=== PATIENT | female | born 1990 | race Caucasian/White ===

== ENCOUNTER 2016-05-18 20:32 | Emergency (ER) | payer OTHER, SELFPAY ==
[2016-05-18] MEDS ORDERED: Sodium Chloride 0.9% 1000 ML 1,000 ML IV STA ×2 (20:59→22:09)
[2016-05-18] MEDS ORDERED: Zofran 4 MG/2 ML VIAL IV ONE (20:59)
[2016-05-18] MEDS ORDERED: Sodium Chloride 0.9% 1000 ML 1,000 ML ONE ×2 (21:04→22:16)
[2016-05-18] MEDS ORDERED: Zofran 4 MG/2 ML VIAL ONE ×2 (21:04→22:15)
--- NOTE | 2016-05-18 21:04 | ERPHSYRPT ---
- History of Present Illness Time Seen by Provider: 05/18/16 20:50 Historian: patient Exam Limitations: clinical condition Patient Subjective Stated Complaint: "i started feeling sick at 4 this morning. i have vomited about 4-5 times and i have had a fever. it was over 101." Triage Nursing Assessment: aox3, breathing easy unlabored, skin pink hot dry, steady gait, Physician History: PATIENT COMPLAINS OF FEVER ASSOCIATED WITH FREQENT EPISODES OF EMESIS X 5. DENIES URINARY SYMPTOMS, COUGH, FLANK PAIN BUT COMPLAINS OF WATER DIARRHEA. Timing/Duration: today Activities at Onset: none Quality: aching Abdominal Pain Onset Location: other (DENIES ABDOIMINAL PAIN) Severity of Pain-Max: none Severity of Pain-Current: none Associated Symptoms: fever/chills, nausea (VOMITING AND DIARRHEA) Allergies/Adverse Reactions: No Known Drug Allergies Allergy (Verified 11/21/15 00:32) Hx Tetanus, Diphtheria Vaccination/Date Given: Yes (2015) Hx Influenza Vaccination/Date Given: No Hx Pneumococcal Vaccination/Date Given: No - Review of Systems Constitutional: Fever, Chills Eyes: No Symptoms Ears, Nose, & Throat: No Symptoms Respiratory: No Symptoms, No Cough, No Dyspnea Cardiac: No Chest Pain, No Edema, No Syncope Abdominal/Gastrointestinal: Nausea, Vomiting, Diarrhea, No Abdominal Pain Genitourinary Symptoms: No Symptoms, No Dysuria Musculoskeletal: No Symptoms, No Back Pain, No Neck Pain Skin: No Symptoms, No Rash Neurological: No Dizziness, No Focal Weakness, No Sensory Changes Psychological: No Symptoms Endocrine: No Symptoms All Other Systems: Reviewed and Negative - Past Medical History Pertinent Past Medical History: No Neurological History: No Pertinent History ENT History: No Pertinent History Cardiac History: No Pertinent History Respiratory History: Asthma Endocrine Medical History: No Pertinent History Musculoskeletal History: No Pertinent History GI Medical History: No Pertinent History History: No Pertinent History Psycho-Social History: Depression Female Reproductive Disorders: No Pertinent History - Past Surgical History Past Surgical History: No Neuro Surgical History: No Pertinent History Cardiac: No Pertinent History Respiratory: No Pertinent History Gastrointestinal: No Pertinent History Genitourinary: No Pertinent History Musculoskeletal: No Pertinent History Female Surgical History: Section Other Surgical History: BACK SURGERY - Social History Smoking Status: Current every day smoker How long have you smoked: 5 Exposure to second hand smoke: No Drug Use: none Patient Lives Alone: No - Female History Hx Now: No - Nursing Vital Signs Nursing Vital Signs: Initial Vital Signs Temperature 100.0 F Temperature Source Oral Pulse Rate 116 Respiratory Rate 16 Blood Pressure [Right Arm] 130/73 Pain Intensity 2 - Physical Exam General Appearance: no apparent distress, alert Eye Exam: PERRL/EOMI, eyes nml inspection Ears, Nose, Throat Exam: normal ENT inspection, pharynx normal, moist mucous membranes Neck Exam: normal inspection, non-tender, supple, full range of motion Respiratory Exam: normal breath sounds, lungs clear, No respiratory distress Cardiovascular Exam: regular rate/rhythm, normal heart sounds Gastrointestinal/Abdomen Exam: soft, normal bowel sounds (NONTENDER), No tenderness, No mass Back Exam: normal inspection, normal range of motion, No CVA tenderness, No vertebral tenderness Extremity Exam: normal inspection, normal range of motion, pelvis stable Neurologic Exam: alert, oriented x 3, cooperative, normal mood/affect, nml cerebellar function, sensation nml, No motor deficits Skin Exam: normal color, warm, dry SpO2: 96 Oxygen Delivery: Room Air Ordered Tests: Active Orders 24 hr Category Date Time Status IV Insertion STAT Care 05/18/16 20:59 Active AMYLASE Stat Lab 05/18/16 20:55 Completed BLOOD CULTURE Stat Lab 05/18/16 21:05 Received BMP Stat Lab 05/18/16 20:55 Completed CBC W DIFF Stat Lab 05/18/16 20:55 Completed HCG,QUALITATIVE URINE Stat Lab 05/18/16 21:05 Completed LIPASE Stat Lab 05/18/16 20:55 Completed UA W/ MICROSCOPIC Stat Lab 05/18/16 21:05 Completed Medication Summary Discontinued Medications Generic Name Dose Route Start Last Admin Trade Name Christina PRN Reason Stop Dose Admin Fentanyl Citrate 100 mcg 05/18/16 22:15 05/18/16 22:23 Sublimaze 100 Mcg/2 Ml IV 05/18/16 22:16 100 mcg STAT ONE Administration Fentanyl Citrate Confirm 05/18/16 22:15 Sublimaze 100 Mcg/2 Ml Administered 05/18/16 22:16 Dose 100 mcg .ROUTE .STK-MED ONE Sodium Chloride 1,000 mls @ 999 mls/hr 05/18/16 20:59 05/18/16 21:06 Sodium Chloride 0.9% 1000 Ml IV 05/18/16 21:59 999 mls/hr .Q1H1M STA Administration Sodium Chloride Confirm 05/18/16 21:04 Sodium Chloride 0.9% 1000 Ml Administered 05/18/16 21:05 Dose 1,000 mls @ ud .ROUTE .STK-MED ONE Sodium Chloride 1,000 mls @ 999 mls/hr 05/18/16 22:09 05/18/16 22:23 Sodium Chloride 0.9% 1000 Ml IV 05/18/16 23:09 999 mls/hr .Q1H1M STA Administration Sodium Chloride Confirm 05/18/16 22:16 Sodium Chloride 0.9% 1000 Ml Administered 05/18/16 22:17 Dose 1,000 mls @ ud .ROUTE .STK-MED ONE Ondansetron HCl 4 mg 05/18/16 20:59 05/18/16 21:06 Zofran 4 Mg/2 Ml Vial IV 05/18/16 21:00 4 mg STAT ONE Administration Ondansetron HCl Confirm 05/18/16 21:04 Zofran 4 Mg/2 Ml Vial Administered 05/18/16 21:05 Dose 4 mg .ROUTE .STK-MED ONE Ondansetron HCl Confirm 05/18/16 22:15 Zofran 4 Mg/2 Ml Vial Administered 05/18/16 22:16 Dose 4 mg .ROUTE .STK-MED ONE Lab/Rad Data: Laboratory Result Diagrams 05/18/16 20:55 05/18/16 20:55 Laboratory Results 05/18/16 05/18/16 05/18/16 Range/Units 21:05 21:05 20:55 WBC (4.0-10.5) K/mm3 RBC (4.1-5.4) M/mm3 Hgb (12.0-16.0) gm/dl Hct (35-47) % MCV (78-100) fl MCH (26-32) pg MCHC (32-36) g/dl RDW (11.5-14.0) % Plt Count (150-450) K/mm3 MPV (6-9.5) fl Gran % (36.0-66.0) % Lymphocytes % (24.0-44.0) % Monocytes % (0.0-12.0) % Eosinophils % (0.00-5.0) % Basophils % (0.0-0.4) % Basophils # (0-0.4) Sodium 136 (136-145) mEq/L Potassium 3.2 L (3.5-5.1) mEq/L Chloride 104 (98-107) mEq/L Carbon Dioxide 19.3 L (21-32) mEq/L Anion Gap 15.5 H (5-15) MEQ/L BUN 8 L (9-20) mg/dL Creatinine 0.82 (0.55-1.30) mg/dl Estimated GFR > 60 ML/MIN Glucose 89 (70-110) MG/DL Calcium 8.7 (8.5-10.1) mg/dL Amylase 32 (25-115) U/L Lipase 120 (73-393) U/L Ur Collection Type CLEAN CATCH Urine Color YELLOW (YELLOW) Urine Appearance CLEAR (CLEAR) Urine pH 5.0 (5-6) Ur Specific [place] 1.025 (1.005-1.025) Urine Protein NEGATIVE (Negative) Urine Glucose (UA) NEGATIVE (NEGATIVE) mg/dL Urine Ketones SMALL-15 (NEGATIVE) Urine Nitrite NEGATIVE (NEGATIVE) Urine Bilirubin SMALL (NEGATIVE) Urine Urobilinogen 0.2 (0-1) mg/dL Urine WBC (Auto) TRACE (NEGATIVE) Urine RBC (Auto) NEGATIVE (0-5) Joseph/ul Urine Microscopic WBC 2-5 (0-5) /HPF Ur Epithelial Cells FEW (FEW) /HPF Urine Bacteria FEW (NEGATIVE) /HPF Urine Mucus MODERATE (NEGATIVE) /HPF Urine HCG, Qual NEGATIVE (Negative) Specimen Received 05/18/16210405/18/16 Range/Units 20:55 WBC 7.1 (4.0-10.5) K/mm3 RBC 5.50 H (4.1-5.4) M/mm3 Hgb 16.7 H (12.0-16.0) gm/dl Hct 48.7 H (35-47) % MCV 88.5 (78-100) fl MCH 30.3 (26-32) pg MCHC 34.3 (32-36) g/dl RDW 13.0 (11.5-14.0) % Plt Count 248 (150-450) K/mm3 MPV 9.5 (6-9.5) fl Gran % 79.3 H (36.0-66.0) % Lymphocytes % 12.2 L (24.0-44.0) % Monocytes % 7.1 (0.0-12.0) % Eosinophils % 1.1 (0.00-5.0) % Basophils % 0.3 (0.0-0.4) % Basophils # 0.02 (0-0.4) Sodium (136-145) mEq/L Potassium (3.5-5.1) mEq/L Chloride (98-107) mEq/L Carbon Dioxide (21-32) mEq/L Anion Gap (5-15) MEQ/L BUN (9-20) mg/dL Creatinine (0.55-1.30) mg/dl Estimated GFR ML/MIN Glucose (70-110) MG/DL Calcium (8.5-10.1) mg/dL Amylase (25-115) U/L Lipase (73-393) U/L Ur Collection Type Urine Color (YELLOW) Urine Appearance (CLEAR) Urine pH (5-6) Ur Specific [place] (1.005-1.025) Urine Protein (Negative) Urine Glucose (UA) (NEGATIVE) mg/dL Urine Ketones (NEGATIVE) Urine Nitrite (NEGATIVE) Urine Bilirubin (NEGATIVE) Urine Urobilinogen (0-1) mg/dL Urine WBC (Auto) (NEGATIVE) Urine RBC (Auto) (0-5) Joseph/ul Urine Microscopic WBC (0-5) /HPF Ur Epithelial Cells (FEW) /HPF Urine Bacteria (NEGATIVE) /HPF Urine Mucus (NEGATIVE) /HPF Urine HCG, Qual (Negative) Specimen Received - Progress Progress Note: 05/18/16 23:18 PATIENT HYDRATED 2 LITERS NORMAL SALINE OVER 2 HOURS, ZOFRAN 4MG, FENTANYL 0.1MG IV Counseled pt/family regarding: lab results, diagnosis, need for follow-up - Departure Time of Disposition: 23:37 Departure Disposition: Home Clinical Impression: ACUTE GASTROENTERITIS Condition: Stable Critical Care Time: No Referrals: BAM NEGRETE MD [Primary Care Provider] - Additional Instructions: DRINK PLENTY OF FLUIDS. ZOFRAN 4MG EVERY 4 HOURS FOR NAUSEA NEEDED. BEGIN CLEAR LIQUID DIET FOR 24 HOURS THEN ADVANCE DIET TOLERATED. TYLENOL OR MOTRIN NEEDED FOR FEVER OR PAIN. CONSULT YOUR FAMILY PHYSICIAN FOR FOLLOWUP IN 6-7 DAYS. RETURN TO EMERGENCY FOR VOMITING OR PERSISTENT DIARRHEA. Prescriptions: Ondansetron [Zofran Odt] 4 mg PO Q4H PRN PRN #6 tab.rapdis PRN Reason: Nausea
[2016-05-18 21:13] LABS: BASOPHIL % 0.3 % (0.0-0.4); Eosinophil % 1.1 % (0.00-5.0); Granulocytes % 79.3 % (36.0-66.0); Lymphocytes % 12.2 % (24.0-44.0); Mean Cell Volume 88.5 fl (78-100); Mean Platelet Volume 9.5 fl (6-9.5); Monocytes % 7.1 % (0.0-12.0); Platelet Count 248 K/mm3 (150-450); White Blood Count 7.1 K/mm3 (4.0-10.5)
[2016-05-18 21:20] LABS: Mean Corpuscular Hemoglobin 30.3 pg (26-32)
[2016-05-18 21:28] LABS: ANION GAP 15.5 MEQ/L (5-15); BLOOD UREA NITROGEN 8 mg/dL (9-20); CHLORIDE 104 mEq/L (98-107); Carbon Dioxide 19.3 mEq/L (21-32); Glucose 89 MG/DL (70-110); LIPASE 120 U/L (73-393); Potassium 3.2 mEq/L (3.5-5.1); SODIUM 136 mEq/L (136-145)
[2016-05-18 21:48] LABS: COMPLETE URINE MICROSCOPIC? YES; Collection Type CLEAN CATCH
[2016-05-18 21:49] LABS: Bacteria FEW /HPF (NEGATIVE); Epithelial Cells FEW /HPF (FEW); Mucus MODERATE /HPF (NEGATIVE)
[2016-05-18 22:12] VITALS: O2SAT 96
[2016-05-18] MEDS ORDERED: SUBLIMAZE 100 MCG/2 ML IV ONE (22:15)
[2016-05-18] MEDS ORDERED: SUBLIMAZE 100 MCG/2 ML ONE (22:15)
[2016-05-18 22:27] VITALS: BP 130/73; PULSE 116
== END 2016-05-18 23:46 | disposition home or self-care (01) ==
LOC: ED 20:32
DX: K52.9 Noninfective gastroenteritis and colitis, unspecified (principal); R50.9 Fever, unspecified; R11.2 Nausea with vomiting, unspecified
CPT/HCPCS: 36000; 36415; 80048; 81000; 82150; 83690; 84703; 85025; 87040; 96360; 96361; 96374; 96375; 99283; J2405; J3010

== ENCOUNTER 2016-07-21 07:58 | Observation (INO) | payer OTHER ==
[2016-07-21] MEDS ORDERED: Zemuron 100 MG/10 ML IJ ONE (08:00)
[2016-07-21] MEDS ORDERED: TORAdol 30 mg Injection IJ ONE (08:00)
[2016-07-21] MEDS ORDERED: BRIDION 200MG/2ML IV ONE (08:00)
[2016-07-21] MEDS ORDERED: DILAUDID 2 MG INJECTION IV ONE (08:00)
[2016-07-21] MEDS ORDERED: SUBLIMAZE 100 MCG/2 ML IV ONE (08:00)
[2016-07-21] MEDS ORDERED: Decadron 4 MG INJ IV ONE (08:00)
[2016-07-21] MEDS ORDERED: DIPRIVAN 200 MG/20 ML IV ONE (08:00)
[2016-07-21] MEDS ORDERED: Quelicin Fliptop 200 MG/10 ML IJ ONE (08:00)
[2016-07-21] MEDS ORDERED: Zofran 4 MG/2 ML VIAL IV ONE ×2 (08:00→08:32)
[2016-07-21] MEDS ORDERED: BENADRYL 50 MG/ML IV ONE (08:32)
[2016-07-21] MEDS ORDERED: Sodium Chloride 0.9% 1000 ML 1,000 ML IV STA (08:32)
[2016-07-21] MEDS ORDERED: Hydromorphone 1 mg/ml Ampule IV ONE (08:32)
--- NOTE | 2016-07-21 08:36 | ERPHSYRPT ---
- History of Present Illness Time Seen by Provider: 07/21/16 08:13 Historian: patient Patient Subjective Stated Complaint: PT REPORTS WAKING UP THIS AM TO RIGHT SIDED ABD-FLANK PAIN-REPORTS NAUSEA BUT DENIES VOMITING-STATES THAT PAIN RADIATES TO BACK-DENIES DIFFICULTY WITH BOWELS-REPORTS INCREASED FREQUENCY IN URINATION-DENIES FEVER Triage Nursing Assessment: PT PALE WARM ET [id number] QUESTIONS CORRECTLY-NO REBOUND TENDERNESS NOTED-ABD SOFT Physician History: CC: abd pain hx: 26 y/o patient missed recent depo provera shot. She has hx of UTI in the past. Prior C/S. She awoke at 4AM with nausea that is profound, RLQ abd pain. Forced herself to vomit. No diarrhea. Pain moderate. She is worried about appendicitis. No hx of renal stone disease. Allergies/Adverse Reactions: latex Allergy (Intermediate, Verified 07/21/16 08:25) Home Medications: Escitalopram Oxalate 10 mg [Lexapro 10 MG] 10 mg PO DAILY 07/21/16 [History] Hx Tetanus, Diphtheria Vaccination/Date Given: Yes Hx Influenza Vaccination/Date Given: No Hx Pneumococcal Vaccination/Date Given: No Immunizations Up to Date: Yes - Review of Systems Constitutional: No Fever, No Chills Eyes: No Symptoms Ears, Nose, & Throat: No Symptoms Respiratory: No Cough Cardiac: No Chest Pain Abdominal/Gastrointestinal: Abdominal Pain, Nausea, No Diarrhea Genitourinary Symptoms: Frequency, Urgency, No Dysuria, No Incontinence Musculoskeletal: No Back Pain Skin: No Rash All Other Systems: Reviewed and Negative - Past Medical History Pertinent Past Medical History: Yes Neurological History: No Pertinent History ENT History: No Pertinent History Cardiac History: No Pertinent History Respiratory History: Asthma Endocrine Medical History: No Pertinent History Musculoskeletal History: No Pertinent History GI Medical History: No Pertinent History History: No Pertinent History Psycho-Social History: Depression Female Reproductive Disorders: No Pertinent History - Past Surgical History Past Surgical History: Yes Neuro Surgical History: No Pertinent History Cardiac: No Pertinent History Respiratory: No Pertinent History Gastrointestinal: No Pertinent History Genitourinary: No Pertinent History Musculoskeletal: No Pertinent History Female Surgical History: Section Other Surgical History: BACK SURGERY - Social History Smoking Status: Never smoker How long have you smoked: 5 Exposure to second hand smoke: No Drug Use: none Patient Lives Alone: No - Female History Hx Last Menstrual Period: LAST YR Hx Now: No - Nursing Vital Signs Nursing Vital Signs: Initial Vital Signs Temperature 97.9 F Temperature Source Oral Pulse Rate 69 Respiratory Rate 22 Blood Pressure [Right Arm] 120/81 Pain Intensity 7 - Physical Exam General Appearance: alert, other (flat affect) Eye Exam: PERRL/EOMI Ears, Nose, Throat Exam: normal ENT inspection, moist mucous membranes Neck Exam: normal inspection, non-tender, supple Respiratory Exam: normal breath sounds, lungs clear Cardiovascular Exam: regular rate/rhythm Gastrointestinal/Abdomen Exam: soft, tenderness (RLQ with guarding and rovsings sign), No mass Extremity Exam: normal inspection, normal range of motion Neurologic Exam: alert, oriented x 3, cooperative, sensation nml, No motor deficits Skin Exam: warm, dry, No rash SpO2 Interpretation: normal SpO2: 100 Oxygen Delivery: Room Air - Course Nursing assessment & vital signs reviewed: Yes - CT Exams abd/pelvis CT Interpretation: Tele-radiologist Report (borderline prominent appendix with very minimal hazy margins, possible mild/early appendicitis. Tiny culdesac fluid. Splenomegaly.) Ordered Tests: Active Orders 24 hr Category Date Time Status IV Insertion STAT Care 07/21/16 08:32 Active NPO (ED) STAT Care 07/21/16 08:32 Active ABDOMEN AND PELVIS W CONTRAST [CT] Stat Exams 07/21/16 08:32 Completed CBC W DIFF Stat Lab 07/21/16 08:15 Completed CMP Stat Lab 07/21/16 08:15 Received CULTURE,URINE Stat Lab 07/21/16 09:10 Received HCG QUALITATIVE,SERUM Stat Lab 07/21/16 08:15 Completed UA W/ MICROSCOPIC Stat Lab 07/21/16 08:15 Completed Medication Summary Discontinued Medications Generic Name Dose Route Start Last Admin Trade Name Freq PRN Reason Stop Dose Admin Diphenhydramine HCl 25 mg 07/21/16 08:32 07/21/16 08:42 Benadryl 50 Mg/Ml IV 07/21/16 08:33 25 mg STAT ONE Administration Diphenhydramine HCl Confirm 07/21/16 08:38 Benadryl 50 Mg/Ml Administered 07/21/16 08:39 Dose 50 mg .ROUTE .STK-MED ONE Hydromorphone HCl 1 mg 07/21/16 08:32 07/21/16 08:42 Hydromorphone 1 Mg/Ml Ampule IV 07/21/16 08:33 1 mg STAT ONE Administration Hydromorphone HCl Confirm 07/21/16 08:38 Hydromorphone 1 Mg/Ml Ampule Administered 07/21/16 08:39 Dose 1 mg .ROUTE .STK-MED ONE Sodium Chloride 1,000 mls @ 999 mls/hr 07/21/16 08:32 07/21/16 08:39 Sodium Chloride 0.9% 1000 Ml IV 07/21/16 09:32 999 mls/hr .Q1H1M STA Administration Sodium Chloride Confirm 07/21/16 08:38 Sodium Chloride 0.9% 1000 Ml Administered 07/21/16 08:39 Dose 1,000 mls @ ud .ROUTE .STK-MED ONE Ondansetron HCl 4 mg 07/21/16 08:32 07/21/16 08:41 Zofran 4 Mg/2 Ml Vial IV 07/21/16 08:33 4 mg STAT ONE Administration Ondansetron HCl Confirm 07/21/16 08:38 Zofran 4 Mg/2 Ml Vial Administered 07/21/16 08:39 Dose 4 mg .ROUTE .STK-MED ONE Lab/Rad Data: Laboratory Result Diagrams 07/21/16 08:15 Laboratory Results 07/21/16 07/21/16 07/21/16 Range/Units 08:15 08:15 08:15 WBC 13.1 H (4.0-10.5) K/mm3 RBC 5.23 (4.1-5.4) M/mm3 Hgb 15.9 (12.0-16.0) gm/dl Hct 46.8 (35-47) % MCV 89.5 (78-100) fl MCH 30.4 (26-32) pg MCHC 34.0 (32-36) g/dl RDW 13.4 (11.5-14.0) % Plt Count 293 (150-450) K/mm3 MPV 9.7 H (6-9.5) fl Gran % 81.2 H (36.0-66.0) % Lymphocytes % 12.4 L (24.0-44.0) % Monocytes % 4.4 (0.0-12.0) % Eosinophils % 1.8 (0.00-5.0) % Basophils % 0.2 (0.0-0.4) % Basophils # 0.03 (0-0.4) Serum , Qual NEGATIVE (Negative) Ur Collection Type CCMS Urine Color YELLOW (YELLOW) Urine Appearance CLOUDY (CLEAR) Urine pH 5.5 (5-6) Ur Specific [place] 1.025 (1.005-1.025) Urine Protein NEGATIVE (Negative) Urine Glucose (UA) NEGATIVE (NEGATIVE) mg/dL Urine Ketones NEGATIVE (NEGATIVE) Urine Nitrite NEGATIVE (NEGATIVE) Urine Bilirubin NEGATIVE (NEGATIVE) Urine Urobilinogen 0.2 (0-1) mg/dL Urine WBC (Auto) SMALL (NEGATIVE) Urine RBC (Auto) NEGATIVE (0-5) Joseph/ul Urine Microscopic RBC 2-5 (0-2) /HPF Urine Microscopic WBC 2-5 (0-5) /HPF Ur Epithelial Cells MANY (FEW) /HPF Urine Bacteria MODERATE (NEGATIVE) /HPF Specimen Received 0815 07/21/16 - Progress Progress Note: 07/21/16 10:36 Pt has continued tenderness RLQ. CT suspicious for appy. Called Dr Palacio for [facility]. Will place in obs and consult surgeons. Discussed with : Hakeem Will see patient in: hospital (observation) Counseled pt/family regarding: lab results, diagnosis, need for follow-up, rad results - Departure Time of Disposition: 10:36 Departure Disposition: Observation Clinical Impression: RLQ abdominal pain Appendicitis Qualifiers: Appendicitis type: acute appendicitis Acute appendicitis type: with localized peritonitis Qualified Code(s): K35.3 - Acute appendicitis with localized peritonitis Condition: Stable Critical Care Time: No Referrals: BAM NEGRETE MD [Primary Care Provider] -
[2016-07-21] MEDS ORDERED: Hydromorphone 1 mg/ml Ampule ONE (08:38)
[2016-07-21] MEDS ORDERED: BENADRYL 50 MG/ML ONE (08:38)
[2016-07-21] MEDS ORDERED: Zofran 4 MG/2 ML VIAL ONE (08:38)
[2016-07-21] MEDS ORDERED: Sodium Chloride 0.9% 1000 ML 1,000 ML ONE (08:38)
[2016-07-21 08:49] LABS: BASOPHIL % 0.2 % (0.0-0.4); Eosinophil % 1.8 % (0.00-5.0); Granulocytes % 81.2 % (36.0-66.0); Lymphocytes % 12.4 % (24.0-44.0); Mean Cell Volume 89.5 fl (78-100); Mean Corpuscular Hemoglobin 30.4 pg (26-32); Mean Platelet Volume 9.7 fl (6-9.5); Monocytes % 4.4 % (0.0-12.0); Platelet Count 293 K/mm3 (150-450); Red Blood Count 5.23 M/mm3 (4.1-5.4); Red Cell Distribution Width 13.4 % (11.5-14.0); White Blood Count 13.1 K/mm3 (4.0-10.5)
[2016-07-21 08:54] LABS: COMPLETE URINE MICROSCOPIC? YES; Collection Type CCMS; Ph 5.5 (5-6)
[2016-07-21 09:48] LABS: Epithelial Cells MANY /HPF (FEW)
[2016-07-21 09:51] LABS: Bacteria MODERATE /HPF (NEGATIVE)
--- NOTE | 2016-07-21 10:14 | XRAY ---
Indication: Right lower pain and nausea. Multiple contiguous axial images obtained through the abdomen and pelvis using 80 cc Isovue 370 contrast only. Comparison: None Lung bases demonstrates minimal bibasilar dependent atelectasis. Heart is not enlarged. Noncontrasted stomach and bowel loops appear nonobstructed. Appendix measures 8mm in diameter with very minimal hazy margins. Mild/early appendicitis not excluded in the right clinical setting. There is tiny cul-de-sac fluid that may or may not be related to the appendix or could be from ruptured/leaking ovary cyst. No free air. Again splenomegaly today measuring 12.7 cm. Remaining liver, gallbladder, pancreas, spleen, adrenal glands, kidneys, ureters, urinary bladder, uterus, and aorta appear unremarkable. Osseous structures intact. Impression: 1. Borderline prominent appendix with very minimal hazy margins. Rule out mild/early appendicitis clinically. Tiny cul-de-sac fluid may or may not be related or could be from a ruptured/leaking ovary cyst. 2. Again splenomegaly. CTDI 14.54
[2016-07-21] MEDS ORDERED: Unasyn 3GM / NaCl 100ML 100 ML IV ONE (10:37)
[2016-07-21] MEDS ORDERED: Unasyn 3GM / NaCl 100ML 100 ML ONE (10:52)
[2016-07-21] MEDS ORDERED: DILAUDID 2 MG INJECTION IV PRN (11:21)
[2016-07-21] MEDS ORDERED: Zofran 4 MG/2 ML VIAL IV PRN (11:21)
[2016-07-21] MEDS ORDERED: Unasyn 1.5GM / NaCl 100ML 100 ML IV SCH (12:00)
[2016-07-21] MEDS ORDERED: Pepcid 20 MG VIAL IV SCH (14:00)
[2016-07-21] MEDS ORDERED: Lactated Ringers 1,000 ML IV SCH (14:00)
[2016-07-21] MEDS ORDERED: MEFOXIN 2 GM PREMIX** 50 ML IV SCH (14:00)
[2016-07-21] MEDS ORDERED: Lactated Ringers 1,000 ML IV ONE (14:16)
[2016-07-21] MEDS ORDERED: Sensorcaine 0.25% 10 ML ONE (14:16)
--- NOTE | 2016-07-21 15:45 | CONS ---
CONSULT DATE: 07/21/2016 HISTORY: The patient is a 26 year-old female who started having some right lower quadrant earlier today. She came in and she had leukocytosis. She denied any fever, denied any change in bowel movements. She denied any known family history of Crohn's disease. CT scan had concern of enlarged appendix, whether or not she had adnexal cyst or not. The radiologist felt that she had appendicitis and asked for surgical consult. PAST MEDICAL HISTORY: She denies any chronic illnesses. She does report a little bit of asthma or chronic obstructive pulmonary disease otherwise she denies any other chronic illnesses. MEDICATIONS: None on a regular basis. She had been on Lexapro. ALLERGIES: [place]. LATEX. SOCIAL HISTORY: Smoker half pack per day, denies alcohol abuse. FAMILY HISTORY: Negative for Crohn's disease, negative in regards to this problem. PAST SURGICAL HISTORY: Back surgery. section. She denied any abdominal surgeries in the past. REVIEW OF SYSTEMS: Ten systems reviewed negative or noncontributory as noted above and per preadmission questionnaire. LAB DATA AND TESTS: White blood cell count reported to be 13,100. CT scan showed prominent appendix with hazy around the edges, possibly early acute appendicitis. Differential ruptured, leaking adnexal cyst. PHYSICAL EXAMINATION: She is afebrile. Blood pressure 132/94, pulse 72 earlier. GENERAL: Slightly uncomfortable otherwise in no acute distress.HEENT: Sclera nonicteric. NECK: No JVD. CHEST: Equal excursion, nonlabored breathing. CVS: Regular rate and rhythm. ABDOMEN: Soft, some tenderness in the right lower quadrant a little bit of guarding, no rebound currently. EXTREMITIES: No significant edema. NEURO: Alert, moving extremities grossly symmetrically. IMPRESSION: She had lower quadrant pain, leukocytosis, history and CT findings suspicious for possible early acute appendicitis versus ruptured adnexal cyst or Mittelschmerz. Either way given the prominent appendix, leukocytosis, I feel she definitely warrants diagnostic laparoscopy possible laparoscopic appendectomy, possible open. Risks and benefits explained in detail but not limited to bleeding or infection, risk of trocar injury or hernia, small risk bowel, bladder or blood vessel injury, small risk of subsequent intra-abdominal abscess or fistula formation possibly requiring percutaneous or open drainage even at a later date, general risk of anesthesia, deep venous thrombosis, pulmonary embolism, pneumonia, possibly need to convert to an open procedure, risk of obstruction or ileus postoperatively, ongoing infection. She also understands possibility of finding a normal appendix likely remove incidentally and look for other etiology that might need taken care of surgically. If she does have a ruptured cyst likely would rinse the abdomen out and conservative management given her young age. She understands and agrees to the planned procedure, will proceed with diagnostic laparoscopy, laparoscopic appendectomy, possible open when OR time available. Thank you for the consult.
[2016-07-21] MEDS ORDERED: Phenergan 25 MG INJ ONE (15:48)
[2016-07-21] MEDS ORDERED: DILAUDID 2 MG INJECTION ONE (16:01)
[2016-07-21] MEDS ORDERED: NORCO 5/325 MG PO PRN (16:44)
[2016-07-21] MEDS ORDERED: TYLENOL 325 MG PO PRN (16:44)
[2016-07-21] MEDS: Zosyn 3.375GM/100 Ml D5W 100 ML IV SCH (17:11)
[2016-07-21] MEDS: D5W/0.45NS W/ 20mEq KCl 1000 ML 1,000 ML IV SCH (17:13)
[2016-07-21] MEDS: MORPHINE SULFATE 4 MG INJ IV PRN (20:04)
[2016-07-21] MEDS ORDERED: Lexapro 10 MG ONE (20:58)
[2016-07-21] MEDS ORDERED: Lexapro 10 MG PO SCH (22:00)
[2016-07-22] MEDS: Zosyn 3.375GM/100 Ml D5W 100 ML IV SCH ×3 (00:20→11:30)
[2016-07-22] MEDS: MORPHINE SULFATE 4 MG INJ IV PRN (00:40)
[2016-07-22] MEDS: D5W/0.45NS W/ 20mEq KCl 1000 ML 1,000 ML IV SCH (05:37)
[2016-07-22 05:51] LABS: Mean Cell Volume 91.1 fl (78-100); Mean Corpuscular Hemoglobin 30.6 pg (26-32); Mean Platelet Volume 9.9 fl (6-9.5); Platelet Count 241 K/mm3 (150-450); Red Blood Count 4.28 M/mm3 (4.1-5.4); Red Cell Distribution Width 13.2 % (11.5-14.0); White Blood Count 10.9 K/mm3 (4.0-10.5)
--- NOTE | 2016-07-22 07:41 | OP ---
SURGERY DATE/TIME: 07/21/2016 1458 PREOPERATIVE DIAGNOSIS: Acute right lower quadrant pain. CT suspicious for acute appendicitis. POSTOPERATIVE DIAGNOSIS: Acute right lower quadrant pain. CT suspicious for acute appendicitis including bilateral adnexal cyst. PROCEDURE: Diagnostic laparoscopy laparoscopic appendectomy. SURGEON: Dr. Bird Sweeney. BOILER OR ENGINE OPERATOR: Elias Lobo, Medical Student III. ANESTHESIA: General. ESTIMATED BLOOD LOSS: Minimal. INDICATIONS: As noted above. Risks and benefits explained in detail but not limited to and consent obtained. DESCRIPTION OF PROCEDURE AND FINDINGS: The patient was taken to the operating room. General anesthesia was induced. Abdomen prepped and draped in usual sterile fashion. After official time out and no disagreement with planned procedure, a transverse incision made at supraumbilical area. Fascia grasped and pulled upwards. Veress needle inserted and tested with saline. Pneumoperitoneum accomplished insufflating from opening pressure of 0 to 15. A 5 mm bladeless port and camera were inserted without difficulty followed by a lower midline 5 mm bladeless port and camera inserted without difficulty followed by lower midline 5 mm port and right mid abdomen 12 mm port under direct vision of the camera. The patient did have bilateral adnexal cysts. There did not appear to be any active hemorrhage at this time from the cysts. Definitely had abnormally thickened, inflamed appendix. I felt it definitely warranted appendectomy. Otherwise the terminal was run a couple feet proximally at least, two to three feet proximally. No evidence of any Meckel's diverticulum. There is no evidence of any inflammatory bowel disease. Liver was grossly unremarkable. At this point the peritoneal reflection was carefully released laterally with just some pin point hook cautery allowing the cecum and appendix to be mobilized upwards. EndoGIA stapler fired across. Original stapler failed to fire appropriately therefore it was discarded and a new stapler was used this time firing safely across the stump of the appendix at the cecum. The residual mesoappendix taken down with the stapler. This was followed by placement of the appendix in the Pleatman sac pulled free out the port wound. Port replaced. Copious amount of irrigation accomplished in right lateral quadrant irrigating until clear. Staple line is intact mesoappendix, appendiceal stump and the cecum. No signs of any active bleeding or leakage. It was felt there was no benefit in drain placement at this point. 12 mm port defect closed with puncture closure device under direct vision of the camera and #1 Vicryl. Pneumoperitoneum decompressed. The wound is irrigated out. Skin incision closed with 4-0 Vicryl. Steri-Strips and sterile dressing applied. 0.25% Marcaine local injected along the skin incision fascial defects. The patient tolerated the procedure well. There were no immediate complications. Apparently the mother was outside smoking or left, was not immediately available to discuss findings with postoperatively.
--- NOTE | 2016-07-22 08:16 | PCM.SSS ---
History of Present Illness - Chief Complaint Chief Complaint: abdominal pain History of Present Illness: is a 26 year old female who presented to ER with acute onset of lower abdominal pain, CT scan was consistent with appendicitis, she had laparoscopic appendectomy by Dr Sweeney. she is tolerating po intake and ambulating normally postoperatively. no fever, wbc has improved to 10,000 after surgery. - Review of Systems Constitutional: No Fever, No Chills Respiratory: No Cough, No Short Of Breath Cardiac: No Chest Pain, No Edema, No Syncope Abdominal/Gastrointestinal: Abdominal Pain, No Nausea, No Vomiting, No Diarrhea Genitourinary Symptoms: No Dysuria Skin: No Rash All Other Systems: Reviewed and Negative Medications & Allergies Home Medications: Home Medication List Escitalopram Oxalate 10 mg [Lexapro 10 MG] 10 mg PO HS 07/21/16 [History Confirmed 07/21/16] Amoxicillin/Potassium Clav [Augmentin 875-125 Tablet] 875 mg PO BID #10 tablet 07/22/16 [Rx] Hydrocodone Bit/Acetaminophen [[place] 5/325Mg] 1 each PO Q4H PRN PRN #28 tablet 07/22/16 [Rx] Allergies/Adverse Reactions: Allergies Allergy/AdvReac Type Severity Reaction Status Date / Time pineapple Allergy Severe Verified 07/21/16 12:06 latex Allergy Intermediate Verified 07/21/16 08:25 - Past Medical History Past Medical History: Yes Neurological History: No Pertinent History ENT History: No Pertinent History Cardiac History: No Pertinent History Respiratory History: Asthma Endocrine Medical History: No Pertinent History Musculoskelatal History: No Pertinent History GI Medical History: No Pertinent History History: No Pertinent History Pyscho-Social History: Depression Reproductive Disorders: No Pertinent History - Female History Hx Last Menstrual Period: 1 yr ago Are you now?: No - Past Surgical History Past Surgical History: Yes Neuro Surgical History: No Pertinent History Cardiac History: No Pertinent History Respiratory Surgery: No Pertinent History GI Surgical History: No Pertinent History Genitourinary Surgical Hx: No Pertinent History Musculskeletal Surgical Hx: No Pertinent History Female Surgical History: Section Other Surgical History: BACK SURGERY - Social History Smoking Status: Current every day smoker How long have you smoked: 9 yrs Exposure to second hand smoke: Yes Alcohol: None Drug Use: none - Physical Exam Vital Signs: Vital Signs - 24 hr Temp Pulse Resp BP BP Pulse Ox 07/22/16 07:00 98.3 F 61 18 111/65 95 07/22/16 04:00 15 07/22/16 03:00 98.3 F 71 15 102/70 97 07/22/16 00:00 18 07/21/16 23:00 98.4 F 83 18 103/57 95 07/21/16 20:00 18 07/21/16 19:23 98.2 F 71 16 106/54 95 07/21/16 18:15 98.4 F 70 16 101/56 95 07/21/16 18:02 98.0 F 75 20 106/68 92 L 07/21/16 16:30 98.3 F 83 18 124/75 95 07/21/16 16:00 97.9 F 70 18 127/78 94 L 07/21/16 14:02 98.3 F 72 18 132/94 97 07/21/16 11:32 98.3 F 72 18 132/94 97 07/21/16 10:37 100 07/21/16 09:05 69 22 120/81 98 Oxygen-Last 24 hours O2 Percentage 2 Liters = 28% General Appearance: no apparent distress, alert Respiratory Exam: normal breath sounds, lungs clear, No respiratory distress Cardiovascular Exam: regular rate/rhythm, normal heart sounds, normal peripheral pulses Gastrointestinal/Abdomen Exam: soft, normal bowel sounds, other (dressings c/d/i ), No tenderness, No mass Extremity Exam: normal inspection, normal range of motion, pelvis stable Results - Labs Lab/Micro Results: Lab Results-Last 24 Hours 07/22/16 Range/Units 05:15 WBC 10.9 H (4.0-10.5) K/mm3 RBC 4.28 (4.1-5.4) M/mm3 Hgb 13.1 (12.0-16.0) gm/dl Hct 39.0 (35-47) % MCV 91.1 (78-100) fl MCH 30.6 (26-32) pg MCHC 33.6 (32-36) g/dl RDW 13.2 (11.5-14.0) % Plt Count 241 (150-450) K/mm3 MPV 9.9 H (6-9.5) fl Assessment/Plan (1) Appendicitis Current Visit: Yes Status: Acute Qualifiers: Appendicitis type: acute appendicitis Acute appendicitis type: with localized peritonitis Qualified Code(s): K35.3 - Acute appendicitis with localized peritonitis Assessment & Plan: s/p lap appy, has rx on chart for augmentin 875mg bid x 5 days and norco prn for pain. home today if ok with surgery. Code(s): K37 - UNSPECIFIED APPENDICITIS Hospital Summary - Vitals & Intake/Output Vital Signs: Vital Signs Temperature 98.3 F 07/22/16 07:00 Pulse Rate 61 07/22/16 07:00 Respiratory Rate 18 07/22/16 07:00 Blood Pressure 111/65 07/22/16 07:00 O2 Sat by Pulse Oximetry 95 07/22/16 07:00 Oxygen-Last Documented O2 Percentage 2 Liters = 28% Intake & Output: Intake & Output 07/19/16 07/20/16 07/21/16 07/22/16 11:59 11:59 11:59 11:59 Intake Total 540 Balance 540 Weight 73.482 kg 73.482 kg - Lab Result Diagrams: 07/22/16 05:15 Lab Results-Last 24 Hrs: Lab Results-Last 24 Hours 07/22/16 Range/Units 05:15 WBC 10.9 H (4.0-10.5) K/mm3 RBC 4.28 (4.1-5.4) M/mm3 Hgb 13.1 (12.0-16.0) gm/dl Hct 39.0 (35-47) % MCV 91.1 (78-100) fl MCH 30.6 (26-32) pg MCHC 33.6 (32-36) g/dl RDW 13.2 (11.5-14.0) % Plt Count 241 (150-450) K/mm3 MPV 9.9 H (6-9.5) fl - Discharge Disposition: Home, Self-Care Condition: Stable Prescriptions: New Amoxicillin/Potassium Clav [Augmentin 875-125 Tablet] 875 mg PO BID #10 tablet Hydrocodone Bit/Acetaminophen [[place] 5/325Mg] 1 each PO Q4H PRN PRN #28 tablet PRN Reason: Pain Continue Escitalopram Oxalate 10 mg [Lexapro 10 MG] 10 mg PO HS Follow up with: BAM NEGRETE MD [Primary Care Provider] -
[2016-07-22 11:36] VITALS: BP 113/71; PULSE 60; O2SAT 96
== END 2016-07-22 11:40 | disposition home or self-care (01) ==
LOC: ED 07:58 → MED SURG 11:14
PROVIDERS: ADMIT Family Medicine; ATTEND Family Medicine
PROC: 0DTJ4ZZ Resection of Appendix, Percutaneous Endoscopic Approach (ICD-10-PCS; principal; 2016-07-21)
PROC: 0WJH4ZZ Inspection of Retroperitoneum, Percutaneous Endoscopic Approach (ICD-10-PCS; 2016-07-21)
DX: K35.3 Acute appendicitis with localized peritonitis (principal)
CPT/HCPCS: 00840; 36000; 36415; 74177; 80053; 81000; 84703; 85025; 85027; 87086; 88304; 96360; 96365; 96374; 96375; 99140; 99285; C1781; G0378; J0295; J0330; J0694; J1100; J1170; J1200; J1885; J2270; J2405; J2543; J2550; J2704; J3010; A9270-GY

== ENCOUNTER 2016-07-30 18:51 | Emergency (ER) | payer OTHER ==
[2016-07-30] MEDS ORDERED: TYLENOL 325 MG PO STA (20:12)
--- NOTE | 2016-07-30 20:12 | ERPHSYRPT ---
- History of Present Illness Time Seen by Provider: 07/30/16 19:40 Source: patient Exam Limitations: clinical condition Patient Subjective Stated Complaint: pt states she been having fever and headache radiating to rt jaw and ear since yesterday. states she just had her appendix out last week and was worried Triage Nursing Assessment: pt alert and oriented, answers questions approp. pt ambulatory with steady gait ntoed. skin pink warm and dry. respirations nonlabored with lungs cta. abd soft, nontender. bowel sounds present in all 4 quads. Physician History: PATIENT WITH RECENT APPENDECTOMY 9 DAYS AGO NOW COMPLAINS OF SORETHROAT, FEVER WITH HEADACHE OVER PAST 3 DAYS. DENIES BLURRED VISION, COUGH, NECK STIFFNESS, EMESIS OR DIARRHEA. Timing/Duration: gradual onset Severity: moderate ENT Location: throat Prearrival Treatment: no prearrival treatment Modifying Factors: Improves With: activity Associated Symptoms: fever, headache Allergies/Adverse Reactions: pineapple Allergy (Severe, Verified 07/30/16 19:23) latex Allergy (Intermediate, Verified 07/30/16 19:23) Home Medications: Escitalopram Oxalate 10 mg [Lexapro 10 MG] 10 mg PO HS 07/21/16 [History] Hx Tetanus, Diphtheria Vaccination/Date Given: Yes Hx Influenza Vaccination/Date Given: No Hx Pneumococcal Vaccination/Date Given: No Immunizations Up to Date: Yes - Review of Systems Constitutional: Fever Eyes: No Symptoms Ears, Nose, & Throat: Throat Pain Respiratory: No Symptoms Cardiac: No Symptoms Abdominal/Gastrointestinal: No Symptoms Genitourinary Symptoms: No Symptoms Musculoskeletal: No Symptoms Skin: No Symptoms Neurological: No Symptoms, Headache Psychological: No Symptoms - Past Medical History Pertinent Past Medical History: Yes Neurological History: No Pertinent History ENT History: No Pertinent History Cardiac History: No Pertinent History Respiratory History: Asthma Endocrine Medical History: No Pertinent History Musculoskeletal History: No Pertinent History GI Medical History: No Pertinent History History: No Pertinent History Psycho-Social History: Depression Female Reproductive Disorders: No Pertinent History - Past Surgical History Past Surgical History: Yes Neuro Surgical History: No Pertinent History Cardiac: No Pertinent History Respiratory: No Pertinent History Gastrointestinal: No Pertinent History, Appendectomy Genitourinary: No Pertinent History Musculoskeletal: No Pertinent History Female Surgical History: Section Other Surgical History: BACK SURGERY - Social History Smoking Status: Current every day smoker How long have you smoked: 9 yrs Exposure to second hand smoke: Yes Drug Use: none Patient Lives Alone: No - Female History Hx Last Menstrual Period: 1 yr ago- was on depo shot Hx Now: No - Nursing Vital Signs Nursing Vital Signs: Initial Vital Signs Temperature 98.3 F Temperature Source Oral Pulse Rate 114 Respiratory Rate 18 Blood Pressure [Right Arm] 138/96 Pain Intensity 4 - Physical Exam General Appearance: no apparent distress, alert Eye Exam: bilateral eye: PERRL, EOMI Ear Exam: bilateral ear: auricle normal, canal normal, TM normal Nasal Exam: normal inspection Throat Exam: moist mucus membranes, pharynx tenderness (WITH ERYTHRMA), No tonsillar exudate Neck Exam: normal inspection, non-tender, supple Cardiovascular/Respiratory Exam: normal breath sounds, regular rate/rhythm Abdominal Exam: non-tender, soft Neurologic Exam: alert, oriented x 3, sensation nml, No motor deficits Skin Exam: normal color, warm, dry SpO2 Interpretation: normal SpO2: 97 Oxygen Delivery: Room Air Ordered Tests: Active Orders 24 hr Category Date Time Status CULTURE, THROAT Stat Lab 07/30/16 20:16 Received STREP SCREEN-BETA A Stat Lab 07/30/16 20:16 Completed Medication Summary Discontinued Medications Generic Name Dose Route Start Last Admin Trade Name Christina PRN Reason Stop Dose Admin Acetaminophen 650 mg 07/30/16 20:12 Tylenol 325 Mg PO 07/30/16 20:13 STAT STA Azithromycin 500 mg 07/30/16 20:48 Zithromax 250 Mg Tablet PO 07/30/16 20:49 STAT ONE Azithromycin Confirm 07/30/16 20:50 Zithromax 250 Mg Tablet Administered 07/30/16 20:51 Dose 500 mg .ROUTE .[place] ONE Lab/Rad Data: Laboratory Results 07/30/16 Range/Units 20:16 Streptococcus Screen NEGATIVE (Negative) - Progress Progress Note: 07/30/16 20:53 PATIENT GIVEN ZITHROMAX 500MG ORALLY Counseled pt/family regarding: lab results, diagnosis, need for follow-up - Departure Time of Disposition: 21:00 Departure Disposition: Home Clinical Impression: ACUTE PHARYNGITIS Condition: Stable Critical Care Time: No Additional Instructions: ANTIBIOTIC ZITHROMAX 250MG, 2 TABLETS DAY 1 THEN 1 TABLET DAILY FOR 4 DAYS. TYLENOL EVERY 4 HOURS FOR PAIN. CONSULT YOUR FAMILY PHYSICIAN IN 1 WEEK FOR FOLLOWUP. Prescriptions: Azithromycin 250 mg [Zithromax 250 MG TABLET] 250 mg PO ZPACK #6 tablet
[2016-07-30] MEDS ORDERED: Zithromax 250 MG TABLET PO ONE (20:48)
[2016-07-30] MEDS ORDERED: Zithromax 250 MG TABLET ONE (20:50)
[2016-07-30 21:08] VITALS: BP 120/82; PULSE 100; O2SAT 100
== END 2016-07-30 21:07 | disposition home or self-care (01) ==
LOC: ED 18:51
DX: J02.9 Acute pharyngitis, unspecified (principal); R50.9 Fever, unspecified; R51 Headache
CPT/HCPCS: 87070; 87430; 99283; A9270-GY

== ENCOUNTER 2016-12-09 23:07 | Emergency (ER) | payer OTHER ==
--- NOTE | 2016-12-09 23:21 | ERPHSYRPT ---
- History of Present Illness Time Seen by Provider: 12/09/16 23:21 Source: patient Exam Limitations: no limitations Physician History: FOR THE PAST 2 WEEKS PT HAS HAD INCREASED URINARY FREQUENCY; FOR THE PAST 3 DAYS NAUSEA AND DULL RIGHT FLANK PAIN. PT DENIES FEVER, CHILLS, VOMITING, CHEST PAIN. Allergies/Adverse Reactions: pineapple Allergy (Severe, Verified 07/30/16 19:23) latex Allergy (Intermediate, Verified 07/30/16 19:23) Hx Tetanus, Diphtheria Vaccination/Date Given: Yes Hx Influenza Vaccination/Date Given: No Hx Pneumococcal Vaccination/Date Given: No - Review of Systems Constitutional: No Fever, No Chills Cardiac: No Chest Pain Abdominal/Gastrointestinal: Nausea, Other (RIGHT FLANK PAIN), No Vomiting Genitourinary Symptoms: Frequency All Other Systems: Reviewed and Negative - Past Medical History Pertinent Past Medical History: Yes Neurological History: No Pertinent History ENT History: No Pertinent History Cardiac History: No Pertinent History Respiratory History: Asthma Endocrine Medical History: No Pertinent History Musculoskeletal History: No Pertinent History GI Medical History: No Pertinent History History: No Pertinent History Psycho-Social History: Depression Female Reproductive Disorders: No Pertinent History - Past Surgical History Past Surgical History: Yes Neuro Surgical History: No Pertinent History Cardiac: No Pertinent History Respiratory: No Pertinent History Gastrointestinal: No Pertinent History, Appendectomy Genitourinary: No Pertinent History Musculoskeletal: No Pertinent History Female Surgical History: Section Other Surgical History: BACK SURGERY - Social History Smoking Status: Current every day smoker How long have you smoked: 9 yrs Exposure to second hand smoke: Yes Drug Use: none Patient Lives Alone: No - Female History Hx Now: No - Nursing Vital Signs Nursing Vital Signs: Initial Vital Signs Temperature 97.6 F 12/09/16 23:08 Pulse Rate 108 H 12/09/16 23:08 Respiratory Rate 18 12/09/16 23:08 Blood Pressure 152/89 12/09/16 23:08 O2 Sat by Pulse Oximetry 100 12/09/16 23:08 Pain Scale Pain Intensity 7 - Physical Exam General Appearance: alert Eye Exam: PERRL/EOMI Ears, Nose, Throat Exam: TMs normal, pharynx normal, moist mucous membranes Neck Exam: normal inspection Respiratory Exam: lungs clear Cardiovascular Exam: normal heart sounds Gastrointestinal/Abdomen Exam: soft, normal bowel sounds, No tenderness Back Exam: normal range of motion Extremity Exam: normal inspection, No pedal edema Neurologic Exam: alert, cooperative Skin Exam: warm, dry SpO2 Interpretation: normal SpO2: 100 Oxygen Delivery: Room Air - Course Nursing assessment & vital signs reviewed: Yes - CT Exams Abdomen/Pelvis CT Interpretation: Tele-radiologist Report (NO UROLITHIASIS OR ACUTE FINDINGS.) Ordered Tests: Active Orders 24 hr Category Date Time Status ABDOMEN AND PELVIS W/0 CONTRAS [CT] Stat Exams 12/09/16 23:53 Taken AMYLASE Stat Lab 12/09/16 23:52 Completed CBC W DIFF Stat Lab 12/09/16 23:52 Completed CMP Stat Lab 12/09/16 23:52 Completed HCG QUALITATIVE,SERUM Stat Lab 12/09/16 Completed HCG,QUALITATIVE URINE Stat Lab 12/09/16 23:30 Completed LIPASE Stat Lab 12/09/16 23:52 Completed UA W/ MICROSCOPIC Stat Lab 12/09/16 23:30 Completed Lab/Rad Data: Laboratory Result Diagrams 12/10/16 00:05 12/10/16 00:05 Laboratory Results 12/10/16 12/10/16 12/10/16 Range/Units 00:05 00:05 00:05 WBC 7.6 (4.0-10.5) K/mm3 RBC 4.62 (4.1-5.4) M/mm3 Hgb 14.3 (12.0-16.0) gm/dl Hct 41.9 (35-47) % MCV 90.7 (78-100) fl MCH 31.0 (26-32) pg MCHC 34.1 (32-36) g/dl RDW 13.5 (11.5-14.0) % Plt Count 277 (150-450) K/mm3 MPV 9.7 H (6-9.5) fl Gran % 53.3 (36.0-66.0) % Lymphocytes % 34.1 (24.0-44.0) % Monocytes % 7.7 (0.0-12.0) % Eosinophils % 4.5 (0.00-5.0) % Basophils % 0.4 (0.0-0.4) % Basophils # 0.03 (0-0.4) Sodium 142 (136-145) mEq/L Potassium 3.7 (3.5-5.1) mEq/L Chloride 107 (98-107) mEq/L Carbon Dioxide 26.1 (21-32) mEq/L Anion Gap 12.8 (5-15) MEQ/L BUN 5 L (9-20) mg/dL Creatinine 0.75 (0.55-1.30) mg/dl Estimated GFR > 60 ML/MIN Glucose 94 (70-110) MG/DL Calcium 8.8 (8.5-10.1) mg/dL Total Bilirubin 0.40 (0.2-1.0) mg/dL AST 17 (15-37) U/L ALT 24 (12-78) U/L Alkaline Phosphatase 87 (46-116) U/L Serum Total Protein 6.7 (6.4-8.2) gm/dL Albumin 3.8 (3.4-5.0) g/dL Amylase 32 (25-115) U/L Lipase 134 (73-393) U/L Serum , Qual NEGATIVE (Negative) Ur Collection Type Urine Color (YELLOW) Urine Appearance (CLEAR) Urine pH (5-6) Ur Specific [place] (1.005-1.025) Urine Protein (Negative) Urine Ketones (NEGATIVE) Urine Blood (0-5) Joseph/ul Urine Nitrite (NEGATIVE) Urine Bilirubin (NEGATIVE) Urine Urobilinogen (0-1) mg/dL Ur Leukocyte Esterase (NEGATIVE) Urine Microscopic WBC (0-5) /HPF Ur Epithelial Cells (FEW) /HPF Urine Bacteria (NEGATIVE) /HPF Urine Glucose (NEGATIVE) mg/dL Urine HCG, Qual (Negative) Specimen Received 12/09/16 12/09/16 Range/Units 23:30 23:30 WBC (4.0-10.5) K/mm3 RBC (4.1-5.4) M/mm3 Hgb (12.0-16.0) gm/dl Hct (35-47) % MCV (78-100) fl MCH (26-32) pg MCHC (32-36) g/dl RDW (11.5-14.0) % Plt Count (150-450) K/mm3 MPV (6-9.5) fl Gran % (36.0-66.0) % Lymphocytes % (24.0-44.0) % Monocytes % (0.0-12.0) % Eosinophils % (0.00-5.0) % Basophils % (0.0-0.4) % Basophils # (0-0.4) Sodium (136-145) mEq/L Potassium (3.5-5.1) mEq/L Chloride (98-107) mEq/L Carbon Dioxide (21-32) mEq/L Anion Gap (5-15) MEQ/L BUN (9-20) mg/dL Creatinine (0.55-1.30) mg/dl Estimated GFR ML/MIN Glucose (70-110) MG/DL Calcium (8.5-10.1) mg/dL Total Bilirubin (0.2-1.0) mg/dL AST (15-37) U/L ALT (12-78) U/L Alkaline Phosphatase (46-116) U/L Serum Total Protein (6.4-8.2) gm/dL Albumin (3.4-5.0) g/dL Amylase (25-115) U/L Lipase (73-393) U/L Serum , Qual (Negative) Ur Collection Type CLEAN CATCH Urine Color YELLOW (YELLOW) Urine Appearance CLEAR (CLEAR) Urine pH 7.0 (5-6) Ur Specific [place] 1.015 (1.005-1.025) Urine Protein NEGATIVE (Negative) Urine Ketones NEGATIVE (NEGATIVE) Urine Blood NEGATIVE (0-5) Joseph/ul Urine Nitrite NEGATIVE (NEGATIVE) Urine Bilirubin NEGATIVE (NEGATIVE) Urine Urobilinogen NORMAL (0-1) mg/dL Ur Leukocyte Esterase 1+ (NEGATIVE) Urine Microscopic WBC 0-2 (0-5) /HPF Ur Epithelial Cells MODERATE (FEW) /HPF Urine Bacteria FEW (NEGATIVE) /HPF Urine Glucose NEGATIVE (NEGATIVE) mg/dL Urine HCG, Qual NEGATIVE (Negative) Specimen Received 12/09/16:2330 - Departure Time of Disposition: 00:57 Departure Disposition: Home Clinical Impression: RIGHT FLANK PAIN Condition: Stable Critical Care Time: No Referrals: LENORA JETT NP [Primary Care Provider] - Instructions: Abdominal Pain-Adult Additional Instructions: FOLLOW UP WITH PRIVATE DOCTOR TOMORROW. Prescriptions: Ondansetron [Zofran Odt] 4 mg PO Q4H PRN PRN #14 tab.rapdis PRN Reason: Nausea/Vomiting
[2016-12-09 23:49] LABS: ADD URINE CULTURE? NO (NO); Bilirubin NEGATIVE (NEGATIVE); Blood NEGATIVE Ery/ul (0-5); COMPLETE URINE MICROSCOPIC? YES; Collection Type CLEAN CATCH; Glucose NEGATIVE (NEGATIVE); Leukocyte Esterase 1+ (NEGATIVE)
[2016-12-09 23:50] LABS: Bacteria FEW /HPF (NEGATIVE); Epithelial Cells MODERATE /HPF (FEW); WBC 0-2 /HPF (0-5)
[2016-12-10 00:17] LABS: BASOPHIL % 0.4 % (0.0-0.4); Eosinophil % 4.5 % (0.00-5.0); Granulocytes % 53.3 % (36.0-66.0); Lymphocytes % 34.1 % (24.0-44.0); Mean Cell Volume 90.7 fl (78-100); Mean Platelet Volume 9.7 fl (6-9.5); Monocytes % 7.7 % (0.0-12.0); Platelet Count 277 K/mm3 (150-450); Red Blood Count 4.62 M/mm3 (4.1-5.4); Red Cell Distribution Width 13.5 % (11.5-14.0); White Blood Count 7.6 K/mm3 (4.0-10.5)
[2016-12-10 00:39] LABS: ALBUMIN 3.8 g/dL (3.4-5.0); ALKALINE PHOSPHATASE 87 U/L (46-116); ANION GAP 12.8 MEQ/L (5-15); BLOOD UREA NITROGEN 5 mg/dL (9-20); CHLORIDE 107 mEq/L (98-107); Carbon Dioxide 26.1 mEq/L (21-32); Glucose 94 MG/DL (70-110); LIPASE 134 U/L (73-393); Potassium 3.7 mEq/L (3.5-5.1); SGOT/AST 17 U/L (15-37); SODIUM 142 mEq/L (136-145); Total Protein 6.7 gm/dL (6.4-8.2)
[2016-12-10 00:48] LABS: SGPT/ALT 24 U/L (12-78)
[2016-12-10 01:09] VITALS: BP 142/82; PULSE 96; O2SAT 99
--- NOTE | 2016-12-10 09:39 | XRAY ---
Indication: Dull right flank pain. Increased urinary frequency. Nausea, chills, and emesis. Multiple contiguous axial images obtained through the abdomen and pelvis without contrast as ordered. Comparison: July 21, 2016. Lung bases are clear. Heart is not enlarged. Noncontrasted stomach and bowel loops appear nonobstructed. Interval appendectomy. New 3.7 cm left ovary cyst. No free fluid/air. Stable 12.7 cm splenomegaly and punctate right pelvic phlebolith. Remaining liver, gallbladder, pancreas, spleen, adrenal glands, kidneys, ureters, urinary bladder, uterus, and aorta appear unremarkable for noncontrast exam. Osseous structures intact. Impression: 1. Stable splenomegaly. 2. No acute intra-abdominal/pelvic abnormalities on this noncontrast exam. Comment: Preliminary interpretation was made by [facility]. No critical discrepancy. CTDI 13.76
== END 2016-12-10 01:22 | disposition home or self-care (01) ==
LOC: ED 23:07
DX: R10.9 Unspecified abdominal pain (principal); R35.0 Frequency of micturition; R11.0 Nausea
CPT/HCPCS: 36415; 74176; 80053; 81000; 82150; 83690; 84703; 85025; 99283

== ENCOUNTER 2017-01-03 02:03 | Emergency (ER) | payer OTHER ==
[2017-01-03 02:42] LABS: ADD URINE CULTURE? NO (NO); Bilirubin NEGATIVE (NEGATIVE); Blood NEGATIVE Ery/ul (0-5); COMPLETE URINE MICROSCOPIC? NO; Collection Type CLEAN CATCH; Glucose NEGATIVE (NEGATIVE); Leukocyte Esterase NEGATIVE (NEGATIVE)
--- NOTE | 2017-01-03 02:44 | ERPHSYRPT ---
- History of Present Illness Time Seen by Provider: 01/03/17 02:39 Source: patient Exam Limitations: no limitations Patient Subjective Stated Complaint: PT STATES FOR 3-4 SHE HAS BEEN HAVING UTI SYMPTOMS, PRESSURE IN THE PELVIC REGION, URGENCY, CRAMPING AND PAIN WITH URINATION. PT ALSO REPORTS A SORE THROAT. PT WAS SEEN AT [facility] TODAY WITH SIMILAR SYMPTOMS AND RX FLONASE FOR HER SORE THROAT. REPORTS THEY TOLD HER THE URINE SHOWED NO INFECTION. Triage Nursing Assessment: PT IS AOX3, RESPS ARE EASY AND NON LABORED, SKIN IS PINK WARM AND DRY, ABD IS SOFT AND TENDER WITH PALPATION TO THE SUPRAPUBIC REGION, BOWEL SOUNDS ARE PRESENT AND NORMOACTIVE X4. Physician History: FOR THE PAST 2 DAYS PT HAS HAD A SORE THROAT, EARACHES, DYSURIA AND FEVER UP TO 101 DEGREES TONIGHT WITH LOWER ABDOMINAL CRAMPING. LAST BM WAS TONIGHT AND HARD. Allergies/Adverse Reactions: pineapple Allergy (Severe, Verified 07/30/16 19:23) latex Allergy (Intermediate, Verified 07/30/16 19:23) Hx Tetanus, Diphtheria Vaccination/Date Given: Yes Hx Influenza Vaccination/Date Given: No Hx Pneumococcal Vaccination/Date Given: No Immunizations Up to Date: Yes - Review of Systems Constitutional: Fever Ears, Nose, & Throat: Ear Pain, Throat Pain Abdominal/Gastrointestinal: Abdominal Pain, No Vomiting, No Diarrhea Genitourinary Symptoms: Dysuria Neurological: No Headache All Other Systems: Reviewed and Negative - Past Medical History Pertinent Past Medical History: Yes Neurological History: No Pertinent History ENT History: No Pertinent History Cardiac History: No Pertinent History Respiratory History: Asthma Endocrine Medical History: No Pertinent History Musculoskeletal History: No Pertinent History GI Medical History: No Pertinent History History: No Pertinent History Psycho-Social History: Depression Female Reproductive Disorders: No Pertinent History - Past Surgical History Past Surgical History: Yes Neuro Surgical History: No Pertinent History Cardiac: No Pertinent History Respiratory: No Pertinent History Gastrointestinal: No Pertinent History, Appendectomy Genitourinary: No Pertinent History Musculoskeletal: No Pertinent History Female Surgical History: Section Other Surgical History: BACK SURGERY - Social History Smoking Status: Current every day smoker How long have you smoked: 9 yrs Exposure to second hand smoke: Yes Drug Use: none Patient Lives Alone: No - Female History Hx Last Menstrual Period: 12/13/16 Hx Now: No - Nursing Vital Signs Nursing Vital Signs: Pain Scale Pain Intensity 4 - Physical Exam General Appearance: alert Eye Exam: PERRL/EOMI Ears, Nose, Throat Exam: TMs normal, moist mucous membranes, pharyngeal erythema Neck Exam: normal inspection Respiratory Exam: lungs clear Cardiovascular Exam: normal heart sounds Gastrointestinal/Abdomen Exam: soft, normal bowel sounds, tenderness (MILD SUPRAPUBIC TENDERNESS), No guarding Back Exam: normal range of motion Extremity Exam: normal inspection Neurologic Exam: alert, cooperative Skin Exam: warm, dry - Course Nursing assessment & vital signs reviewed: Yes Ordered Tests: Active Orders 24 hr Category Date Time Status AMYLASE Stat Lab 01/03/17 03:00 Completed CBC W DIFF Stat Lab 01/03/17 03:00 Completed CMP Stat Lab 01/03/17 03:00 Completed HCG QUALITATIVE,SERUM Stat Lab 01/03/17 03:00 Completed LIPASE Stat Lab 01/03/17 03:00 Completed MAG [MAGNESIUM] Stat Lab 01/03/17 03:00 Completed [place] Screen Stat Lab 01/03/17 03:00 Completed UA W/RFX UR CULTURE Stat Lab 01/03/17 02:30 Completed Lab/Rad Data: Laboratory Result Diagrams 01/03/17 03:00 01/03/17 03:00 Laboratory Results 01/03/17 01/03/17 01/03/17 Range/Units 03:00 03:00 03:00 WBC (4.0-10.5) K/mm3 RBC (4.1-5.4) M/mm3 Hgb (12.0-16.0) gm/dl Hct (35-47) % MCV (78-100) fl MCH (26-32) pg MCHC (32-36) g/dl RDW (11.5-14.0) % Plt Count (150-450) K/mm3 MPV (6-9.5) fl Gran % (36.0-66.0) % Lymphocytes % (24.0-44.0) % Monocytes % (0.0-12.0) % Eosinophils % (0.00-5.0) % Basophils % (0.0-0.4) % Basophils # (0-0.4) Sodium (136-145) mEq/L Potassium (3.5-5.1) mEq/L Chloride (98-107) mEq/L Carbon Dioxide (21-32) mEq/L Anion Gap (5-15) MEQ/L BUN (9-20) mg/dL Creatinine (0.55-1.30) mg/dl Estimated GFR ML/MIN Glucose (70-110) MG/DL Calcium (8.5-10.1) mg/dL Magnesium 1.8 (1.8-2.4) mg/dL Total Bilirubin (0.2-1.0) mg/dL AST (15-37) U/L ALT (12-78) U/L Alkaline Phosphatase (46-116) U/L Serum Total Protein (6.4-8.2) gm/dL Albumin (3.4-5.0) g/dL Amylase (25-115) U/L Lipase (73-393) U/L Serum , Qual NEGATIVE (Negative) Ur Collection Type Urine Color (YELLOW) Urine Appearance (CLEAR) Urine pH (5-6) Ur Specific [place] (1.005-1.025) Urine Protein (Negative) Urine Ketones (NEGATIVE) Urine Blood (0-5) Joseph/ul Urine Nitrite (NEGATIVE) Urine Bilirubin (NEGATIVE) Urine Urobilinogen (0-1) mg/dL Ur Leukocyte Esterase (NEGATIVE) Urine Glucose (NEGATIVE) mg/dL Monoscreen POSITIVE (Negative) Specimen Received 01/03/17 01/03/17 01/03/17 Range/Units 03:00 03:00 02:30 WBC 6.4 (4.0-10.5) K/mm3 RBC 4.86 (4.1-5.4) M/mm3 Hgb 14.9 (12.0-16.0) gm/dl Hct 43.5 (35-47) % MCV 89.5 (78-100) fl MCH 30.7 (26-32) pg MCHC 34.3 (32-36) g/dl RDW 13.8 (11.5-14.0) % Plt Count 236 (150-450) K/mm3 MPV 9.6 H (6-9.5) fl Gran % 57.5 (36.0-66.0) % Lymphocytes % 27.4 (24.0-44.0) % Monocytes % 11.5 (0.0-12.0) % Eosinophils % 3.1 (0.00-5.0) % Basophils % 0.5 (0.0-0.4) % Basophils # 0.03 (0-0.4) Sodium 141 (136-145) mEq/L Potassium 3.7 (3.5-5.1) mEq/L Chloride 106 (98-107) mEq/L Carbon Dioxide 25.3 (21-32) mEq/L Anion Gap 13.8 (5-15) MEQ/L BUN 6 L (9-20) mg/dL Creatinine 0.66 (0.55-1.30) mg/dl Estimated GFR > 60 ML/MIN Glucose 98 (70-110) MG/DL Calcium 9.1 (8.5-10.1) mg/dL Magnesium (1.8-2.4) mg/dL Total Bilirubin 0.30 (0.2-1.0) mg/dL AST 34 (15-37) U/L ALT 25 (12-78) U/L Alkaline Phosphatase 105 (46-116) U/L Serum Total Protein 6.9 (6.4-8.2) gm/dL Albumin 3.7 (3.4-5.0) g/dL Amylase 33 (25-115) U/L Lipase 183 (73-393) U/L Serum , Qual (Negative) Ur Collection Type CLEAN CATCH Urine Color YELLOW (YELLOW) Urine Appearance CLEAR (CLEAR) Urine pH 6.5 (5-6) Ur Specific [place] 1.010 (1.005-1.025) Urine Protein NEGATIVE (Negative) Urine Ketones NEGATIVE (NEGATIVE) Urine Blood NEGATIVE (0-5) Joseph/ul Urine Nitrite NEGATIVE (NEGATIVE) Urine Bilirubin NEGATIVE (NEGATIVE) Urine Urobilinogen NORMAL (0-1) mg/dL Ur Leukocyte Esterase NEGATIVE (NEGATIVE) Urine Glucose NEGATIVE (NEGATIVE) mg/dL Monoscreen (Negative) Specimen Received 01/03/17:0230 - Departure Time of Disposition: 04:15 Departure Disposition: Home Clinical Impression: INFECTIOUS MONONUCLEOSIS, PHARYNGITIS Condition: Stable Critical Care Time: No Referrals: LENORA JETT NP [Primary Care Provider] - Instructions: Mononucleosis, Pharyngitis/Tonsillopharyngitis -- Adult Additional Instructions: FOLLOW UP WITH PRIVATE DOCTOR TOMORROW. Prescriptions: Naproxen [Naprosyn] 500 mg PO [id number] PRN #20 tablet PRN Reason: Pain Azithromycin 250 mg [Zithromax 250 MG TABLET] 250 mg PO ZPACK #6 tablet
[2017-01-03 03:06] LABS: BASOPHIL % 0.5 % (0.0-0.4); Eosinophil % 3.1 % (0.00-5.0); Granulocytes % 57.5 % (36.0-66.0); Lymphocytes % 27.4 % (24.0-44.0); Mean Cell Volume 89.5 fl (78-100); Mean Corpuscular Hemoglobin 30.7 pg (26-32); Mean Platelet Volume 9.6 fl (6-9.5); Monocytes % 11.5 % (0.0-12.0); Platelet Count 236 K/mm3 (150-450); Red Blood Count 4.86 M/mm3 (4.1-5.4); Red Cell Distribution Width 13.8 % (11.5-14.0); White Blood Count 6.4 K/mm3 (4.0-10.5)
[2017-01-03 03:26] LABS: ALBUMIN 3.7 g/dL (3.4-5.0); ALKALINE PHOSPHATASE 105 U/L (46-116); ANION GAP 13.8 MEQ/L (5-15); BLOOD UREA NITROGEN 6 mg/dL (9-20); CHLORIDE 106 mEq/L (98-107); Carbon Dioxide 25.3 mEq/L (21-32); Glucose 98 MG/DL (70-110); LIPASE 183 U/L (73-393); Potassium 3.7 mEq/L (3.5-5.1); SGOT/AST 34 U/L (15-37); SGPT/ALT 25 U/L (12-78); SODIUM 141 mEq/L (136-145); Total Protein 6.9 gm/dL (6.4-8.2)
[2017-01-03] MEDS ORDERED: Zithromax 250 MG TABLET PO ONE (04:15)
[2017-01-03] MEDS ORDERED: NORCO 5/325 MG PO ONE (04:16)
[2017-01-03] MEDS ORDERED: Zithromax 250 MG TABLET ONE (04:19)
[2017-01-03] MEDS ORDERED: NORCO 5/325 MG ONE (04:20)
[2017-01-03 04:23] VITALS: BP 112/64; PULSE 89; O2SAT 96
== END 2017-01-03 04:30 | disposition home or self-care (01) ==
LOC: ED 02:03
DX: B27.90 Infectious mononucleosis, unspecified without complication (principal); J02.9 Acute pharyngitis, unspecified
CPT/HCPCS: 36415; 80053; 81002; 82150; 83690; 83735; 84703; 85025; 86308; 99284; A9270-GY

== ENCOUNTER 2017-05-30 19:03 | Emergency (ER) | payer OTHER ==
--- NOTE | 2017-05-30 19:26 | ERPHSYRPT ---
- History of Present Illness Time Seen by Provider: 05/30/17 19:13 Historian: patient Exam Limitations: no limitations Physician History: FOR THE PAST WEEK PT HAS HAD DYSURIA AND NAUSEA; TODAY VOMITING X3, DIARRHEA X10 WITHOUT BLOOD, NON-PRODUCTIVE COUGH AND HEADACHE. Allergies/Adverse Reactions: pineapple Allergy (Severe, Verified 05/30/17 19:23) latex Allergy (Intermediate, Verified 05/30/17 19:23) Home Medications: Fluoxetine HCl 10 mg [Prozac 10 mg] 10 mg PO HS 05/30/17 [History] Hx Tetanus, Diphtheria Vaccination/Date Given: Yes Hx Influenza Vaccination/Date Given: No Hx Pneumococcal Vaccination/Date Given: No - Review of Systems Constitutional: No Fever Respiratory: Cough, No Dyspnea Cardiac: No Chest Pain Abdominal/Gastrointestinal: Nausea, Vomiting, Diarrhea, No Abdominal Pain Genitourinary Symptoms: Dysuria Neurological: Headache All Other Systems: Reviewed and Negative - Past Medical History Pertinent Past Medical History: Yes Neurological History: No Pertinent History ENT History: No Pertinent History Cardiac History: No Pertinent History Respiratory History: Asthma Endocrine Medical History: No Pertinent History Musculoskeletal History: No Pertinent History GI Medical History: No Pertinent History History: No Pertinent History Psycho-Social History: Depression Female Reproductive Disorders: No Pertinent History - Past Surgical History Past Surgical History: Yes Neuro Surgical History: No Pertinent History Cardiac: No Pertinent History Respiratory: No Pertinent History Gastrointestinal: No Pertinent History, Appendectomy Genitourinary: No Pertinent History Musculoskeletal: No Pertinent History Female Surgical History: Section Other Surgical History: BACK SURGERY - Social History Smoking Status: Current every day smoker How long have you smoked: 9 yrs Exposure to second hand smoke: Yes Drug Use: none Patient Lives Alone: No - Nursing Vital Signs Nursing Vital Signs: Initial Vital Signs Temperature 98.6 F 05/30/17 19:11 Pulse Rate 107 H 05/30/17 19:11 Respiratory Rate 18 05/30/17 19:11 Blood Pressure 130/89 05/30/17 19:11 O2 Sat by Pulse Oximetry 98 05/30/17 19:11 Pain Scale Pain Intensity 4 - Physical Exam General Appearance: alert Eye Exam: PERRL/EOMI Ears, Nose, Throat Exam: TMs normal, pharynx normal, moist mucous membranes Neck Exam: normal inspection Respiratory Exam: lungs clear Cardiovascular Exam: normal heart sounds Gastrointestinal/Abdomen Exam: soft, other (B.S. MILDLY HYPERACTIVE AND NORMOTONIC) Back Exam: normal range of motion Extremity Exam: normal inspection, No pedal edema Neurologic Exam: alert, cooperative Skin Exam: warm, dry - Course Nursing assessment & vital signs reviewed: Yes Ordered Tests: Active Orders 24 hr Category Date Time Status IV Insertion STAT Care 05/30/17 19:21 Active AMYLASE Stat Lab 05/30/17 19:48 Completed CBC W DIFF Stat Lab 05/30/17 19:48 Completed CMP Stat Lab 05/30/17 19:48 Completed CULTURE,URINE Stat Lab 05/30/17 19:48 Received HCG QUALITATIVE,SERUM Stat Lab 05/30/17 19:48 Completed LIPASE Stat Lab 05/30/17 19:48 Completed MAG [MAGNESIUM] Stat Lab 05/30/17 19:48 Completed UA W/ MICROSCOPIC Stat Lab 05/30/17 19:48 Completed Medication Summary Generic Name Dose Route Start Last Admin Trade Name Freq PRN Reason Stop Dose Admin Ceftriaxone Sodium/Dextrose 1 g in 50 mls @ 100 mls/hr 05/30/17 21:13 Rocephin 1 Gm-D5w 50 Ml Bag IV 05/30/17 21:42 STAT STA Discontinued Medications Generic Name Dose Route Start Last Admin Trade Name Freq PRN Reason Stop Dose Admin Sodium Chloride 1,000 mls @ 999 mls/hr 05/30/17 19:21 05/30/17 19:59 Sodium Chloride 0.9% 1000 Ml IV 05/30/17 20:21 999 mls/hr .Q1H1M STA Administration Sodium Chloride Confirm 05/30/17 19:40 Sodium Chloride 0.9% 1000 Ml Administered 05/30/17 19:41 Dose 1,000 mls @ ud .ROUTE .STK-MED ONE Ondansetron HCl 4 mg 05/30/17 21:04 Zofran 4 Mg/2 Ml Vial IV 05/30/17 21:05 STAT ONE Promethazine HCl 12.5 mg 05/30/17 19:21 05/30/17 19:40 Phenergan 25 Mg Inj IV 05/30/17 19:22 12.5 mg STAT ONE Administration Promethazine HCl Confirm 05/30/17 19:40 Phenergan 25 Mg Inj Administered 05/30/17 19:41 Dose 25 mg .ROUTE .STK-MED ONE Lab/Rad Data: Laboratory Result Diagrams 05/30/17 19:48 05/30/17 19:48 Laboratory Results 05/30/17 05/30/17 05/30/17 Range/Units 19:48 19:48 19:48 WBC (4.0-10.5) K/mm3 RBC (4.1-5.4) M/mm3 Hgb (12.0-16.0) gm/dl Hct (35-47) % MCV (78-100) fl MCH (26-32) pg MCHC (32-36) g/dl RDW (11.5-14.0) % Plt Count (150-450) K/mm3 MPV (6-9.5) fl Gran % (36.0-66.0) % Lymphocytes % (24.0-44.0) % Monocytes % (0.0-12.0) % Eosinophils % (0.00-5.0) % Basophils % (0.0-0.4) % Basophils # (0-0.4) Sodium 140 (136-145) mEq/L Potassium 3.8 (3.5-5.1) mEq/L Chloride 107 (98-107) mEq/L Carbon Dioxide 20.9 L (21-32) mEq/L Anion Gap 15.9 H (5-15) MEQ/L BUN 8 L (9-20) mg/dL Creatinine 0.79 (0.55-1.30) mg/dl Estimated GFR > 60 ML/MIN Glucose 97 (70-110) MG/DL Calcium 9.2 (8.5-10.1) mg/dL Magnesium 1.9 (1.8-2.4) mg/dL Total Bilirubin 0.80 (0.2-1.0) mg/dL AST 17 (15-37) U/L ALT 18 (12-78) U/L Alkaline Phosphatase 83 (46-116) U/L Serum Total Protein 7.6 (6.4-8.2) gm/dL Albumin 4.3 (3.4-5.0) g/dL Amylase 35 (25-115) U/L Lipase 112 (73-393) U/L Serum , Qual NEGATIVE (Negative) Ur Collection Type Urine Color (YELLOW) Urine Appearance (CLEAR) Urine pH (5-6) Ur Specific [place] (1.005-1.025) Urine Protein (Negative) Urine Ketones (NEGATIVE) Urine Blood (0-5) Joseph/ul Urine Nitrite (NEGATIVE) Urine Bilirubin (NEGATIVE) Urine Urobilinogen (0-1) mg/dL Ur Leukocyte Esterase (NEGATIVE) Urine Microscopic RBC (0-2) /HPF Urine Microscopic WBC (0-5) /HPF Ur Epithelial Cells (FEW) /HPF Urine Bacteria (NEGATIVE) /HPF Urine Mucus (NEGATIVE) /HPF Urine Culture Reflexed (NO) Urine Glucose (NEGATIVE) mg/dL Specimen Received 05/30/17 05/30/17 Range/Units 19:48 19:48 WBC 8.3 (4.0-10.5) K/mm3 RBC 5.39 (4.1-5.4) M/mm3 Hgb 16.5 H (12.0-16.0) gm/dl Hct 47.9 H (35-47) % MCV 88.9 (78-100) fl MCH 30.6 (26-32) pg MCHC 34.4 (32-36) g/dl RDW 13.4 (11.5-14.0) % Plt Count 238 (150-450) K/mm3 MPV 10.4 H (6-9.5) fl Gran % 85.5 H (36.0-66.0) % Lymphocytes % 8.0 L (24.0-44.0) % Monocytes % 4.1 (0.0-12.0) % Eosinophils % 2.3 (0.00-5.0) % Basophils % 0.1 (0.0-0.4) % Basophils # 0.01 (0-0.4) Sodium (136-145) mEq/L Potassium (3.5-5.1) mEq/L Chloride (98-107) mEq/L Carbon Dioxide (21-32) mEq/L Anion Gap (5-15) MEQ/L BUN (9-20) mg/dL Creatinine (0.55-1.30) mg/dl Estimated GFR ML/MIN Glucose (70-110) MG/DL Calcium (8.5-10.1) mg/dL Magnesium (1.8-2.4) mg/dL Total Bilirubin (0.2-1.0) mg/dL AST (15-37) U/L ALT (12-78) U/L Alkaline Phosphatase (46-116) U/L Serum Total Protein (6.4-8.2) gm/dL Albumin (3.4-5.0) g/dL Amylase (25-115) U/L Lipase (73-393) U/L Serum , Qual (Negative) Ur Collection Type VOID Urine Color YELLOW (YELLOW) Urine Appearance CLEAR (CLEAR) Urine pH 5.0 (5-6) Ur Specific [place] 1.020 (1.005-1.025) Urine Protein NEGATIVE (Negative) Urine Ketones MODERATE (NEGATIVE) Urine Blood NEGATIVE (0-5) Joseph/ul Urine Nitrite NEGATIVE (NEGATIVE) Urine Bilirubin NEGATIVE (NEGATIVE) Urine Urobilinogen NORMAL (0-1) mg/dL Ur Leukocyte Esterase 1+ (NEGATIVE) Urine Microscopic RBC 2-5 (0-2) /HPF Urine Microscopic WBC 2-5 (0-5) /HPF Ur Epithelial Cells MODERATE (FEW) /HPF Urine Bacteria MANY (NEGATIVE) /HPF Urine Mucus MODERATE (NEGATIVE) /HPF Urine Culture Reflexed YES (NO) Urine Glucose NEGATIVE (NEGATIVE) mg/dL Specimen Received 05/30/171944 - Departure Time of Disposition: 21:17 Departure Disposition: Home Clinical Impression: UTI, VOMITING, DIARRHEA Condition: Stable Critical Care Time: No Referrals: LENORA JETT NP [Primary Care Provider] - Instructions: Vomiting -- Adult, Diarrhea and Traveler's Diarrhea -- Adult, Urinary Tract Infections in Adults Additional Instructions: FOLLOW UP WITH PRIVATE DOCTOR TOMORROW. Prescriptions: Ondansetron ODT 4 MG [Zofran Odt 4 mg] 4 mg PO Q6H PRN PRN #14 tab.rapdis PRN Reason: Nausea/Vomiting Nitrofurantoin Macro 100 mg [Macrobid 100MG Capsule] 100 mg PO BID #20 capsule
[2017-05-30] MEDS ORDERED: Phenergan 25 MG INJ ONE ×2 (19:40→21:52)
[2017-05-30] MEDS: Phenergan 25 MG INJ IV ONE ×2 (19:40→21:54)
[2017-05-30] MEDS ORDERED: Sodium Chloride 0.9% 1000 ML 1,000 ML ONE (19:40)
[2017-05-30] MEDS: Sodium Chloride 0.9% 1000 ML 1,000 ML IV STA (19:59)
[2017-05-30 20:00] LABS: BASOPHIL % 0.1 % (0.0-0.4); Basophil (Absolute #) 0.01 (0-0.4); Eosinophil % 2.3 % (0.00-5.0); Eosinophil (Absolute #) 0.19 (0-0.5); Granulocyte Absolute (ANC) 7.12 (1.4-6.9); Granulocytes % 85.5 % (36.0-66.0); Hematocrit 47.9 % (35-47); Hemoglobin 16.5 gm/dl (12.0-16.0); Lymphocyte (Absolute #) 0.67 (1.0-4.6); Mean Cell Volume 88.9 fl (78-100); Mean Corpuscular Hemoglobin 30.6 pg (26-32); Mean Corpuscular Hgb Concent. 34.4 g/dl (32-36); Mean Platelet Volume 10.4 fl (6-9.5); Monocyte (Absolute #) 0.34 (0.0-1.3); Monocytes % 4.1 % (0.0-12.0); Platelet Count 238 K/mm3 (150-450); Red Blood Count 5.39 M/mm3 (4.1-5.4); Red Cell Distribution Width 13.4 % (11.5-14.0); White Blood Count 8.3 K/mm3 (4.0-10.5)
[2017-05-30 20:24] LABS: Appearance CLEAR (CLEAR); Bilirubin NEGATIVE (NEGATIVE); Blood NEGATIVE Ery/ul (0-5); Glucose NEGATIVE (NEGATIVE); Ketones MODERATE (NEGATIVE); Leukocyte Esterase 1+ (NEGATIVE); Nitrite NEGATIVE (NEGATIVE); Protein,Urine Dip NEGATIVE (Negative); Urobilinogen NORMAL mg/dL (0-1)
[2017-05-30 20:25] LABS: Bacteria MANY /HPF (NEGATIVE); Epithelial Cells MODERATE /HPF (FEW); Mucus MODERATE /HPF (NEGATIVE)
[2017-05-30 20:28] LABS: ALBUMIN 4.3 g/dL (3.4-5.0); ALKALINE PHOSPHATASE 83 U/L (46-116); AMYLASE 35 U/L (25-115); ANION GAP 15.9 MEQ/L (5-15); BLOOD UREA NITROGEN 8 mg/dL (9-20); CHLORIDE 107 mEq/L (98-107); Calcium 9.2 mg/dL (8.5-10.1); Carbon Dioxide 20.9 mEq/L (21-32); Creatinine 1 0.79 mg/dl (0.55-1.30); EST GLOMERULAR FILTRATION RATE > 60 ML/MIN; Glucose 97 MG/DL (70-110); LIPASE 112 U/L (73-393); Potassium 3.8 mEq/L (3.5-5.1); SGOT/AST 17 U/L (15-37); SGPT/ALT 18 U/L (12-78); SODIUM 140 mEq/L (136-145); Total Protein 7.6 gm/dL (6.4-8.2)
[2017-05-30] MEDS ORDERED: Zofran 4 MG/2 ML VIAL ONE (21:15)
[2017-05-30] MEDS ORDERED: ROCEPHIN 1 Gm-D5w 50 ml Bag** 1 G/50 ML IVPB IV ONE (21:15)
[2017-05-30] MEDS: ROCEPHIN 1 Gm-D5w 50 ml Bag** 1 G/50 ML IVPB IV STA (21:16)
[2017-05-30] MEDS: Zofran 4 MG/2 ML VIAL IV ONE (21:17)
[2017-05-30 21:58] VITALS: BP 124/78; PULSE 95; O2SAT 98
== END 2017-05-30 21:50 | disposition home or self-care (01) ==
LOC: ED 19:03
DX: N39.0 Urinary tract infection, site not specified (principal); R11.2 Nausea with vomiting, unspecified; R19.7 Diarrhea, unspecified; J45.909 Unspecified asthma, uncomplicated; F32.9 Major depressive disorder, single episode, unspecified; Z72.0 Tobacco use
CPT/HCPCS: 36415; 80053; 81000; 82150; 83690; 83735; 84703; 85025; 87086; 96360; 96365; 96374; 96375; 96376; 99284; J0696; J2405; J2550

== ENCOUNTER 2017-08-15 00:22 | Emergency (ER) | payer SELFPAY ==
[2017-08-15 00:37] VITALS: BP 132/92; PULSE 87; O2SAT 100
[2017-08-15] MEDS ORDERED: Eye-Stream Solution OP ONE (00:40)
[2017-08-15] MEDS ORDERED: Erythromycin 3.5 GM OPHTH. OP ONE (00:40)
[2017-08-15] MEDS ORDERED: Fluor-I-Strip/Ful-Flo OP ONE ×2 (00:40→00:46)
[2017-08-15] MEDS ORDERED: TETRACAINE 0.5% STERI-UNIT SOL OP STA (00:40)
[2017-08-15] MEDS ORDERED: TETRACAINE 0.5% STERI-UNIT SOL OP ONE (00:46)
[2017-08-15] MEDS ORDERED: Eye-Stream Solution ONE (00:46)
[2017-08-15] MEDS ORDERED: Erythromycin 1 GM ONE (00:49)
--- NOTE | 2017-08-15 00:51 | ERPHSYRPT ---
- History of Present Illness Time Seen by Provider: 08/15/17 00:44 Source: patient Exam Limitations: clinical condition Patient Subjective Stated Complaint: eye swelled after putting gentamiacin eye drops in right eye, after eye swelled up it felt like it was going down the right side of her face and made her ear feel itchy Triage Nursing Assessment: Pt A&O x3, right eye swollen and red, pt thinks that her contacts are old and are causing her eyes to itch, vitals wnl, does not appear to be in any distress, Physician History: PATIENT HAS BEEN WEARING 6 MONTH OLD EYE CONTACTS, NOTICED CLEAR DRAINAGE FROM RIGHT EYE X 2-3 DAYS AND AFTER REMOVING CONTACT AND APPLY GENTAMYCIN OPHTHALMIC SOLUTION INTO RIGHT EYE NOTICED ONSET OF ITCHING, IRRITATION AND SWELLING OF LOWER EYE LID. DENIES BLURRED VISION BUT COMPLAINS OF PHOTOPHOBIA FOR A FEW DAYS. Timing/Duration: day(s) Location: right eye Severity: moderate Apparent Injury: possibly Associated Symptoms: itching, sensitivity to light, other (CLEAR DRAINAGE) Chemical Exposure: No Trauma: No Welding Arc/Tanning Bed Exposure: No Allergies/Adverse Reactions: pineapple Allergy (Severe, Verified 08/15/17 00:37) latex Allergy (Intermediate, Verified 05/30/17 19:23) Hx Tetanus, Diphtheria Vaccination/Date Given: Yes Hx Influenza Vaccination/Date Given: No Hx Pneumococcal Vaccination/Date Given: No Immunizations Up to Date: Yes - Review of Systems Eyes: Photophobia, Tearing, Other (RIGHT EYE) Ears, Nose, & Throat: No Symptoms Respiratory: No Symptoms Cardiac: No Symptoms Neurological: No Symptoms - Past Medical History Pertinent Past Medical History: Yes Neurological History: No Pertinent History ENT History: No Pertinent History Cardiac History: No Pertinent History Respiratory History: Asthma Endocrine Medical History: No Pertinent History Musculoskeletal History: No Pertinent History GI Medical History: No Pertinent History History: No Pertinent History Psycho-Social History: Depression Female Reproductive Disorders: No Pertinent History - Past Surgical History Past Surgical History: Yes Neuro Surgical History: No Pertinent History Cardiac: No Pertinent History Respiratory: No Pertinent History Gastrointestinal: No Pertinent History, Appendectomy Genitourinary: No Pertinent History Musculoskeletal: No Pertinent History Female Surgical History: Section Other Surgical History: BACK SURGERY - Social History Smoking Status: Current every day smoker How long have you smoked: 9 yrs Exposure to second hand smoke: Yes Drug Use: none Patient Lives Alone: No - Female History Hx Last Menstrual Period: 2 weeks ago Hx Now: No - Nursing Vital Signs Nursing Vital Signs: Initial Vital Signs Temperature 98.1 F 08/15/17 00:28 Pulse Rate 87 08/15/17 00:28 Blood Pressure 132/92 08/15/17 00:28 O2 Sat by Pulse Oximetry 100 08/15/17 00:28 Pain Scale Pain Intensity 0 - Physical Exam General Appearance: no apparent distress, alert Vision Acuity Degree Evaluation Phase: Uncorrected Vision Acuity Right Eye: 20/25 Eye Exam: right eye: exudate (SCLERA CHEMOSIS, LOWER RIGHT EYE LID SWELLING), bilateral eye: PERRL, EOMI Ears, Nose, Throat Exam: normal ENT inspection Neck Exam: normal inspection Respiratory Exam: normal breath sounds Cardiovascular Exam: regular rate/rhythm SpO2 Interpretation: normal SpO2: 100 Oxygen Delivery: Room Air Ordered Tests: Active Orders 24 hr Category Date Time Status Visual Acuity STAT Care 08/15/17 00:51 Ordered Medication Summary Generic Name Dose Route Start Last Admin Trade Name Freq PRN Reason Stop Dose Admin Hydrocodone Bitart/Acetaminophen 1 tab 08/15/17 01:06 [place] 5/325 Mg PO 08/15/17 01:07 SENT HOME W/ PATIENT ONE Discontinued Medications Generic Name Dose Route Start Last Admin Trade Name Freq PRN Reason Stop Dose Admin Diphenhydramine HCl 50 mg 08/15/17 01:05 Benadryl 25 Mg Capsule PO 08/15/17 01:06 STAT ONE Erythromycin 3.5 gm 08/15/17 00:40 08/15/17 00:50 Erythromycin 3.5 Gm Ophth. OP 08/15/17 00:41 3.5 gm STAT ONE Administration Erythromycin Confirm 08/15/17 00:49 Erythromycin 1 Gm Administered 08/15/17 00:50 Dose 1 gm .ROUTE .STK-MED ONE Eye Irrigation Solution 15 ml 08/15/17 00:40 08/15/17 00:47 Eye-Stream Solution OP 08/15/17 00:41 15 ml STAT ONE Administration Eye Irrigation Solution Confirm 08/15/17 00:46 Eye-Stream Solution Administered 08/15/17 00:47 Dose 30 ml .ROUTE .STK-MED ONE Fluorescein Sodium 1 mg 08/15/17 00:40 08/15/17 00:48 Ahktj-L-Cpdzz/Ful-Dustin OP 08/15/17 00:41 1 mg STAT ONE Administration Fluorescein Sodium Confirm 08/15/17 00:46 Epzsz-Z-Ofzkx/Ful-Dustin Administered 08/15/17 00:47 Dose 1 mg OP .STK-MED ONE Tetracaine HCl 4 ml 08/15/17 00:40 08/15/17 00:48 Tetracaine 0.5% Steri-Unit Emma OP 08/15/17 00:41 4 ml STAT STA Administration Tetracaine HCl Confirm 08/15/17 00:46 Tetracaine 0.5% Steri-Unit Emma Administered 08/15/17 00:47 Dose 4 ml OP .STK-MED ONE - Progress Progress: improved Progress Note: 08/15/17 01:14 APPLICATION TETRACAINE OPHTHALMIC EMMA 2GTTS OD, EVERSION OF UPPER EYE LID WITHOUT EVIDENCE OF FOREIGN BODY, FLUORESEIN NEGATIVE FOR CORNEAL ABRASION, EYE IRRIGATION, APPLICATION OF ERYTHROMYCIN OPHTHALMIC OINTMENT OD ADMINISTERED BENADRYL 50MG ORALLY Counseled pt/family regarding: diagnosis, need for follow-up - Departure Time of Disposition: 01:24 Departure Disposition: Home Clinical Impression: CONJUNCTIVITIS RIGHT EYE Condition: Stable Critical Care Time: No Referrals: LENORA JETT NP [Primary Care Provider] - Additional Instructions: DISCONTINUE EYE CONTACTS UNTIL EVALUATED BY NURSE REVIEWER IN 1 WEEK. APPLY ERYTHROMYCIN OPHTHALMIC OINTMENT 1/4 INCH RIBBON INTO LOWER RIGHT EYE LID EVERY 6 HOURS FOR 7 DAYS. CLEANSE HANDS FREQUENTLY AND BEFORE APPLICATION OF ERYTHROMYCIN INTO EYE. [place] 5/325 EVERY 4 HOURS FOR PAIN NEEDED. APPLY ICE OVER PAPER TOWEL OVER EYE SWELLING EVERY 4 HOURS, DURATION 30 MINUTES FOR 48 HOURS. Prescriptions: Erythromycin Base 3.5 gm [Erythromycin 3.5 GM OPHTH.] 3.5 gm OP QID #1 tube Hydrocodone Bit/Acetaminophen [[place] 5-325 Tablet] 1 each PO Q4-6HPRN PRN #8 tablet MDD 4 PRN Reason: Pain
[2017-08-15] MEDS ORDERED: BENADRYL 25 MG CAPSULE PO ONE (01:05)
[2017-08-15] MEDS ORDERED: NORCO 5/325 MG PO ONE (01:06)
[2017-08-15] MEDS ORDERED: NORCO 5/325 MG ONE (01:23)
[2017-08-15] MEDS ORDERED: BENADRYL 25 MG CAPSULE ONE (01:23)
== END 2017-08-15 01:33 | disposition home or self-care (01) ==
LOC: ED 00:22
DX: H10.9 Unspecified conjunctivitis (principal)
CPT/HCPCS: 99282; 99283; A9270-GY

== ENCOUNTER 2017-10-07 10:02 | Emergency (ER) | payer OTHER ==
--- NOTE | 2017-10-07 10:28 | ERPHSYRPT ---
- History of Present Illness Time Seen by Provider: 10/07/17 10:14 Source: patient Exam Limitations: no limitations Patient Subjective Stated Complaint: pt here for abd radiating to right side of lower back, for a week with buring with urination Triage Nursing Assessment: pt alert, resp easy, skin w/d/p. abd soft . nontender to palapate, aslo co burning with urniation Physician History: Patient presents with right-sided back pain for past week. Patient with history of frequent UTIs and have noted similar symptoms of dysuria, frequency and hesitancy. Patient also with nausea, but no vomiting,, fever, dizziness, weakness, vaginal bleeding or discharge. Patient have not taken any pain meds for symptoms. Timing/Duration: week(s) (1), intermittent Method of Injury: other (none) Quality: burning (with urination) Severity of Pain-Max: mild Severity of Pain-Current: none Modifying Factors: Improves With: nothing Associated Symptoms: problems urinating, No fever, No chills, No sweating, No urinary incontinence, No loss of bowel control, No constipation, No light- headedness, No dizziness, No numbness in legs/feet, No weakness, No sensory/ motor loss, No lower back pain, No muscle spasms Previous symptoms: same symptoms as today Allergies/Adverse Reactions: pineapple Allergy (Severe, Verified 10/07/17 10:15) latex Allergy (Intermediate, Verified 10/07/17 10:15) Hx Tetanus, Diphtheria Vaccination/Date Given: (2015) Hx Influenza Vaccination/Date Given: No Hx Pneumococcal Vaccination/Date Given: No - Review of Systems Constitutional: No Fever, No Chills, No Weakness Eyes: No Symptoms Ears, Nose, & Throat: No Symptoms Respiratory: No Symptoms, No Cough, No Dyspnea Cardiac: No Symptoms, No Chest Pain, No Edema, No Syncope Abdominal/Gastrointestinal: Abdominal Pain (minimal to right lateral abdominal area), No Nausea, No Vomiting, No Diarrhea Genitourinary Symptoms: Dysuria, Frequency, Hesitancy, Incontinence, Urgency, No Urinary Retention, No Vaginal Bleeding, No Vaginal Discharge, No Vaginal Itching Musculoskeletal: No Symptoms, No Back Pain, No Neck Pain Skin: No Symptoms, No Rash Neurological: No Symptoms, No Dizziness, No Focal Weakness, No Sensory Changes Psychological: No Symptoms Endocrine: No Symptoms Hematologic/Lymphatic: No Symptoms Immunological/Allergic: No Symptoms All Other Systems: Reviewed and Negative - Past Medical History Pertinent Past Medical History: No Neurological History: No Pertinent History ENT History: No Pertinent History Cardiac History: No Pertinent History Respiratory History: Asthma Endocrine Medical History: No Pertinent History Musculoskeletal History: No Pertinent History GI Medical History: No Pertinent History History: No Pertinent History Psycho-Social History: Depression Female Reproductive Disorders: No Pertinent History - Past Surgical History Past Surgical History: Yes Neuro Surgical History: No Pertinent History Cardiac: No Pertinent History Respiratory: No Pertinent History Gastrointestinal: Appendectomy Genitourinary: No Pertinent History Musculoskeletal: No Pertinent History Female Surgical History: Section Other Surgical History: back - Social History Smoking Status: Current every day smoker How long have you smoked: 9 yrs Exposure to second hand smoke: Yes Drug Use: none Patient Lives Alone: No - Female History Hx Last Menstrual Period: last week Hx Now: No - Nursing Vital Signs Nursing Vital Signs: Pain Scale Pain Intensity 2 - Physical Exam General Appearance: no apparent distress, alert Eye Exam: PERRL/EOMI, eyes nml inspection Ears, Nose, Throat Exam: normal ENT inspection Neck Exam: normal inspection, non-tender, supple, full range of motion, No meningismus, No midline tenderness Respiratory Exam: normal breath sounds, lungs clear, No respiratory distress Cardiovascular Exam: regular rate/rhythm, normal heart sounds Gastrointestinal Exam: soft, No tenderness, No mass Back Exam: normal inspection, normal range of motion, No CVA tenderness, No vertebral tenderness Extremity Exam: normal inspection, normal range of motion, No calf tenderness, No pedal edema Neurologic Exam: alert, oriented x 3, cooperative, 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, normal mood/affect, nml station & gait, sensation nml, No motor deficits Skin Exam: normal color, warm, dry, No rash SpO2 Interpretation: normal Oxygen Delivery: Room Air - Course Nursing assessment & vital signs reviewed: Yes Ordered Tests: Active Orders 24 hr Category Date Time Status Clean Catch Urine Specimen STAT Care 10/07/17 10:22 Active CULTURE,URINE Stat Lab 10/07/17 10:32 Received HCG,QUALITATIVE URINE Stat Lab 10/07/17 10:32 Completed UA W/ MICROSCOPIC Stat Lab 10/07/17 10:32 Completed Lab/Rad Data: Laboratory Results 10/07/17 10/07/17 Range/Units 10:32 10:32 Ur Collection Type VOID Urine Color YELLOW (YELLOW) Urine Appearance CLEAR (CLEAR) Urine pH 5.0 (5-6) Ur Specific Cool 1.020 (1.005-1.025) Urine Protein NEGATIVE (Negative) Urine Ketones NEGATIVE (NEGATIVE) Urine Blood NEGATIVE (0-5) Joseph/ul Urine Nitrite NEGATIVE (NEGATIVE) Urine Bilirubin NEGATIVE (NEGATIVE) Urine Urobilinogen NORMAL (0-1) mg/dL Ur Leukocyte Esterase 1+ (NEGATIVE) Urine Microscopic WBC 10-15 (0-5) /HPF Ur Epithelial Cells FEW (FEW) /HPF Urine Bacteria FEW (NEGATIVE) /HPF Urine Mucus SLIGHT (NEGATIVE) /HPF Urine Culture Reflexed YES (NO) Urine Glucose NEGATIVE (NEGATIVE) mg/dL Urine HCG, Qual NEGATIVE (Negative) Specimen Received 10/07/17 1030 - Progress Progress: unchanged Progress Note: 10/07/17 10:28 we will obtain a UA and urine for evaluation Counseled pt/family regarding: diagnosis - Departure Time of Disposition: 11:23 Departure Disposition: Home Clinical Impression: UTI (urinary tract infection) Condition: Stable Critical Care Time: No Referrals: LENORA JETT NP [Primary Care Provider] - Instructions: Urinary Tract Infection, Adult (DC) Additional Instructions: RX: Bactrim/Pyridium/Zofran May take Tylenol/Motrin for fever/pain Drink plenty of fluids. Return for worse back pain, fever, vomiting or any problems Prescriptions: Ondansetron [Zofran Odt] 4 mg PO Q6-8HPRN PRN #10 tab.rapdis PRN Reason: Nausea/Vomiting Phenazopyridine HCl 200 mg [Pyridium 200 mg] 200 mg PO TID 2 Days #6 tablet Sulfamethoxazole/Trimethoprim [Bactrim Ds Tablet] 1 each PO BID #10 tablet
[2017-10-07 11:16] LABS: Appearance CLEAR (CLEAR); Bilirubin NEGATIVE (NEGATIVE); Blood NEGATIVE Ery/ul (0-5); Glucose NEGATIVE (NEGATIVE); Ketones NEGATIVE (NEGATIVE); Leukocyte Esterase 1+ (NEGATIVE); Nitrite NEGATIVE (NEGATIVE); Protein,Urine Dip NEGATIVE (Negative); Urobilinogen NORMAL mg/dL (0-1)
[2017-10-07 11:17] LABS: Bacteria FEW /HPF (NEGATIVE); Epithelial Cells FEW /HPF (FEW); Mucus SLIGHT /HPF (NEGATIVE)
== END 2017-10-07 11:38 | disposition home or self-care (01) ==
LOC: ED 10:02
DX: N39.0 Urinary tract infection, site not specified (principal)
CPT/HCPCS: 81000; 84703; 87086; 99283

== ENCOUNTER 2017-12-19 19:24 | Emergency (ER) | payer BC, OTHER ==
[2017-12-19] MEDS ORDERED: Sodium Chloride 0.9% 1000 ML 1,000 ML IV STA (19:55)
--- NOTE | 2017-12-19 19:55 | ERPHSYRPT ---
- History of Present Illness Time Seen by Provider: 12/19/17 19:52 Historian: patient, family Exam Limitations: no limitations Patient Subjective Stated Complaint: pt states she has been having lower abd/ pelvic pain since this am. lmp was 11/24/17 and pt states she started having some bleeding 12/09 and has been spotting off and on since. Triage Nursing Assessment: pt alert and oriented, answers questions approp. pt ambulatory with steady gait noted. respirations nonlabored with lungs cta. abd soft and nontender to light palpation. bowel sounds present x4. urine pale yellow, clear Physician History: pt may be and has had low pelvic pain greater on left today no fever , no discharge , no vomiting; no trauma; bleeding past week and more today abd soft nontender without peritoneal signs or distension. Timing/Duration: today Activities at Onset: none Quality: cramping, pressure, sharpness Abdominal Pain Onset Location: suprapubic, other (left pelvic) Pain Radiation: other (left pelvic) Allergies/Adverse Reactions: pineapple Allergy (Severe, Verified 12/19/17 19:50) latex Allergy (Intermediate, Verified 12/19/17 19:50) Home Medications: No Reportable Medications [No Reported Medications] 12/19/17 [History] Hx Tetanus, Diphtheria Vaccination/Date Given: Yes Hx Influenza Vaccination/Date Given: No Hx Pneumococcal Vaccination/Date Given: No Immunizations Up to Date: Yes - Review of Systems Constitutional: No Fever, No Chills Eyes: No Symptoms Ears, Nose, & Throat: No Symptoms Respiratory: No Cough, No Dyspnea Cardiac: No Chest Pain, No Edema, No Syncope Abdominal/Gastrointestinal: Abdominal Pain, No Nausea, No Vomiting, No Diarrhea Genitourinary Symptoms: No Dysuria Musculoskeletal: No Back Pain, No Neck Pain Skin: No Rash Neurological: No Dizziness, No Focal Weakness, No Sensory Changes Psychological: No Symptoms Endocrine: No Symptoms All Other Systems: Reviewed and Negative - Past Medical History Pertinent Past Medical History: No Neurological History: No Pertinent History ENT History: No Pertinent History Cardiac History: No Pertinent History Respiratory History: Asthma Endocrine Medical History: No Pertinent History Musculoskeletal History: No Pertinent History GI Medical History: No Pertinent History History: No Pertinent History Psycho-Social History: Depression Female Reproductive Disorders: No Pertinent History - Past Surgical History Past Surgical History: Yes Neuro Surgical History: No Pertinent History Cardiac: No Pertinent History Respiratory: No Pertinent History Gastrointestinal: Appendectomy Genitourinary: No Pertinent History Musculoskeletal: No Pertinent History Female Surgical History: Section Other Surgical History: back - Social History Smoking Status: Current every day smoker How long have you smoked: 9 yrs Exposure to second hand smoke: Yes Drug Use: none Patient Lives Alone: No - Female History Hx Last Menstrual Period: 11/24/17 Hx Now: No - Nursing Vital Signs Nursing Vital Signs: Initial Vital Signs Temperature 98.2 F 12/19/17 19:41 Pulse Rate 105 H 12/19/17 19:41 Respiratory Rate 18 12/19/17 19:41 Blood Pressure 156/102 12/19/17 19:41 O2 Sat by Pulse Oximetry 100 12/19/17 19:41 Pain Scale Pain Intensity 0 - Physical Exam General Appearance: no apparent distress, alert Eye Exam: PERRL/EOMI, eyes nml inspection Ears, Nose, Throat Exam: normal ENT inspection, pharynx normal, moist mucous membranes Neck Exam: normal inspection, non-tender, supple, full range of motion Respiratory Exam: normal breath sounds, lungs clear, No respiratory distress Cardiovascular Exam: regular rate/rhythm, normal heart sounds Gastrointestinal/Abdomen Exam: soft, No tenderness, No mass Back Exam: normal inspection, normal range of motion, No CVA tenderness, No vertebral tenderness Extremity Exam: normal inspection, normal range of motion, pelvis stable Neurologic Exam: alert, oriented x 3, cooperative, normal mood/affect, nml cerebellar function, sensation nml, No motor deficits Skin Exam: normal color, warm, dry SpO2: 100 Oxygen Delivery: Room Air - Course Nursing assessment & vital signs reviewed: Yes - Radiology Ultrasound Exam Pelvis Ultrasound: No Mass, No Torsion/Nml Flow Ordered Tests: Active Orders 24 hr Category Date Time Status IV Insertion STAT Care 12/19/17 19:55 Active PELVIC [US] Stat Exams 12/19/17 19:56 Taken AMYLASE Stat Lab 12/19/17 20:15 Completed CBC W DIFF Stat Lab 12/19/17 20:15 Completed CMP Stat Lab 12/19/17 20:15 Completed CULTURE,URINE Stat Lab 12/19/17 20:15 Received HCG QUALITATIVE,SERUM Stat Lab 12/19/17 20:15 Completed HCG, Quantitative (Inhouse) Stat Lab 12/19/17 20:15 Completed LIPASE Stat Lab 12/19/17 20:15 Completed Lactic Acid Stat Lab 12/19/17 20:20 Results UA W/ MICROSCOPIC Stat Lab 12/19/17 20:15 Completed Medication Summary Discontinued Medications Generic Name Dose Route Start Last Admin Trade Name Christina PRN Reason Stop Dose Admin Sodium Chloride 1,000 mls @ 999 mls/hr 12/19/17 19:55 12/19/17 21:10 Sodium Chloride 0.9% 1000 Ml IV 12/19/17 20:55 Infused .Q1H1M STA Infusion Sodium Chloride Confirm 12/19/17 20:06 Sodium Chloride 0.9% 1000 Ml Administered 12/19/17 20:07 Dose 1,000 mls @ ud .ROUTE .STK-MED ONE Lab/Rad Data: Laboratory Result Diagrams 12/19/17 20:15 12/19/17 20:15 Laboratory Results 12/19/17 12/19/17 12/19/17 Range/Units 20:20 20:15 20:15 WBC (4.0-10.5) K/mm3 RBC (4.1-5.4) M/mm3 Hgb (12.0-16.0) gm/dl Hct (35-47) % MCV (78-100) fl MCH (26-32) pg MCHC (32-36) g/dl RDW (11.5-14.0) % Plt Count (150-450) K/mm3 MPV (6-9.5) fl Gran % (36.0-66.0) % Eos # (Auto) (0-0.5) Absolute Lymphs (auto) (1.0-4.6) Absolute Monos (auto) (0.0-1.3) Lymphocytes % (24.0-44.0) % Monocytes % (0.0-12.0) % Eosinophils % (0.00-5.0) % Basophils % (0.0-0.4) % Absolute Granulocytes (1.4-6.9) Basophils # (0-0.4) Sodium (137-145) mmol/L Potassium (3.5-5.1) mmol/L Chloride (98-107) mmol/L Carbon Dioxide (22-30) mmol/L Anion Gap (5-15) MEQ/L BUN (7-17) mg/dL Creatinine (0.52-1.04) mg/dL Estimated GFR ML/MIN Glucose (74-106) mg/dL Lactic Acid 2.1 H (0.4-2.0) Calcium (8.4-10.2) mg/dL Total Bilirubin (0.2-1.3) mg/dL AST (14-36) U/L ALT (0-35) U/L Alkaline Phosphatase (38-126) U/L Serum Total Protein (6.3-8.2) g/dL Albumin (3.5-5.0) g/dL Amylase (30-110) U/L Lipase (23-300) U/L Beta HCG, Quant mIU/ml Serum , Qual NEGATIVE (Negative) Ur Collection Type VOID Urine Color COLORLESS (YELLOW) Urine Appearance CLEAR (CLEAR) Urine pH 7.5 (5-6) Ur Specific Soldier 1.000 (1.005-1.025) Urine Protein NEGATIVE (Negative) Urine Ketones NEGATIVE (NEGATIVE) Urine Blood 250 (0-5) Joseph/ul Urine Nitrite NEGATIVE (NEGATIVE) Urine Bilirubin NEGATIVE (NEGATIVE) Urine Urobilinogen NORMAL (0-1) mg/dL Ur Leukocyte Esterase 1+ (NEGATIVE) Urine Microscopic RBC 0-2 (0-2) /HPF Urine Microscopic WBC 0-2 (0-5) /HPF Ur Epithelial Cells RARE (FEW) /HPF Urine Bacteria FEW (NEGATIVE) /HPF Urine Culture Reflexed YES (NO) Urine Glucose NEGATIVE (NEGATIVE) mg/dL Specimen Received 12/19 181412/19/17 12/19/17 12/19/17 Range/Units 20:15 20:15 20:15 WBC 7.5 (4.0-10.5) K/mm3 RBC 4.80 (4.1-5.4) M/mm3 Hgb 15.3 (12.0-16.0) gm/dl Hct 44.6 (35-47) % MCV 92.9 (78-100) fl MCH 31.9 (26-32) pg MCHC 34.3 (32-36) g/dl RDW 13.4 (11.5-14.0) % Plt Count 249 (150-450) K/mm3 MPV 10.9 H (6-9.5) fl Gran % 58.1 (36.0-66.0) % Eos # (Auto) 0.23 (0-0.5) Absolute Lymphs (auto) 2.20 (1.0-4.6) Absolute Monos (auto) 0.69 (0.0-1.3) Lymphocytes % 29.2 (24.0-44.0) % Monocytes % 9.2 (0.0-12.0) % Eosinophils % 3.1 (0.00-5.0) % Basophils % 0.4 (0.0-0.4) % Absolute Granulocytes 4.38 (1.4-6.9) Basophils # 0.03 (0-0.4) Sodium 143 (137-145) mmol/L Potassium 3.9 (3.5-5.1) mmol/L Chloride 107 (98-107) mmol/L Carbon Dioxide 24 (22-30) mmol/L Anion Gap 16.0 H (5-15) MEQ/L BUN 7 (7-17) mg/dL Creatinine 0.66 (0.52-1.04) mg/dL Estimated GFR > 60.0 ML/MIN Glucose 65 L (74-106) mg/dL Lactic Acid (0.4-2.0) Calcium 9.7 (8.4-10.2) mg/dL Total Bilirubin 0.50 (0.2-1.3) mg/dL AST 23 (14-36) U/L ALT 15 (0-35) U/L Alkaline Phosphatase 53 (38-126) U/L Serum Total Protein 7.2 (6.3-8.2) g/dL Albumin 4.8 (3.5-5.0) g/dL Amylase 36 (30-110) U/L Lipase 141 (23-300) U/L Beta HCG, Quant < 2.39 mIU/ml Serum , Qual (Negative) Ur Collection Type Urine Color (YELLOW) Urine Appearance (CLEAR) Urine pH (5-6) Ur Specific Soldier (1.005-1.025) Urine Protein (Negative) Urine Ketones (NEGATIVE) Urine Blood (0-5) Joseph/ul Urine Nitrite (NEGATIVE) Urine Bilirubin (NEGATIVE) Urine Urobilinogen (0-1) mg/dL Ur Leukocyte Esterase (NEGATIVE) Urine Microscopic RBC (0-2) /HPF Urine Microscopic WBC (0-5) /HPF Ur Epithelial Cells (FEW) /HPF Urine Bacteria (NEGATIVE) /HPF Urine Culture Reflexed (NO) Urine Glucose (NEGATIVE) mg/dL Specimen Received - Progress Progress: improved, re-examined Progress Note: 12/19/17 22:28 pain resolved in ER after US which did not show torsion or major pathology; results discussed with pt and that undetected pathology may still be evolving of concern - she prefers DC to f/u PCP for further w/u and declines obs/furhter testing here this pm pain is reported as now resolved. nontender on re-exam - pt also does not wish further w/u/ pelvic or cultures and denies vag discharge at this time. 12/19/17 22:36 also pt did not wish to wait for repeat lactate and is aware this may represent pathology and has the capacity for this declination. Counseled pt/family regarding: diagnosis, need for follow-up, rad results - Departure Time of Disposition: 22:31 Departure Disposition: Home Clinical Impression: Menorrhagia, Abdominal pain of unknown etiology, Hematuria Condition: Good Critical Care Time: No Referrals: LENORA JETT NP [Primary Care Provider] - Instructions: Acute Abdomen (Belly Pain), Adult (DC), Heavy Periods (DC), Ovarian Cysts, Blood in the Urine (Hematuria) in Adults Additional Instructions: we did not determine the exact cause for your bleeding and pain, but there is likely malfunction of the uterus/cycle and this requires further evauation by your Dr. also the urine should be retested to confirm that the blood in urine resolves. sometimes an ovary cyst can also cause these symptoms but none was found yet. return meantime if dizzy, vomiting fever or other concerns
[2017-12-19] MEDS ORDERED: Sodium Chloride 0.9% 1000 ML 1,000 ML ONE (20:06)
[2017-12-19 20:35] LABS: Lactic Acid 2.1 (0.4-2.0)
[2017-12-19 20:47] LABS: Appearance CLEAR (CLEAR); BASOPHIL % 0.4 % (0.0-0.4); Basophil (Absolute #) 0.03 (0-0.4); Bilirubin NEGATIVE (NEGATIVE); Blood 250 Ery/ul (0-5); Eosinophil % 3.1 % (0.00-5.0); Eosinophil (Absolute #) 0.23 (0-0.5); Glucose NEGATIVE (NEGATIVE); Granulocyte Absolute (ANC) 4.38 (1.4-6.9); Granulocytes % 58.1 % (36.0-66.0); Hematocrit 44.6 % (35-47); Hemoglobin 15.3 gm/dl (12.0-16.0); Ketones NEGATIVE (NEGATIVE); Leukocyte Esterase 1+ (NEGATIVE); Lymphocytes % 29.2 % (24.0-44.0); Mean Cell Volume 92.9 fl (78-100); Mean Corpuscular Hemoglobin 31.9 pg (26-32); Mean Corpuscular Hgb Concent. 34.3 g/dl (32-36); Mean Platelet Volume 10.9 fl (6-9.5); Monocyte (Absolute #) 0.69 (0.0-1.3); Monocytes % 9.2 % (0.0-12.0); Nitrite NEGATIVE (NEGATIVE); Ph 7.5 (5-6); Platelet Count 249 K/mm3 (150-450); Protein,Urine Dip NEGATIVE (Negative); Red Cell Distribution Width 13.4 % (11.5-14.0); Urobilinogen NORMAL mg/dL (0-1); White Blood Count 7.5 K/mm3 (4.0-10.5)
[2017-12-19 20:48] LABS: Bacteria FEW /HPF (NEGATIVE); Epithelial Cells RARE /HPF (FEW); RBC 0-2 /HPF (0-2); WBC 0-2 /HPF (0-5)
[2017-12-19 20:59] LABS: ALBUMIN 4.8 g/dL (3.5-5.0); ALKALINE PHOSPHATASE 53 U/L (38-126); AMYLASE 36 U/L (30-110); BLOOD UREA NITROGEN 7 mg/dL (7-17); CHLORIDE 107 mmol/L (98-107); Calcium 9.7 mg/dL (8.4-10.2); Carbon Dioxide 24 mmol/L (22-30); Creatinine 1 0.66 mg/dL (0.52-1.04); Glucose 65 mg/dL (74-106); LIPASE 141 U/L (23-300); Potassium 3.9 mmol/L (3.5-5.1); SGOT/AST 23 U/L (14-36); SGPT/ALT 15 U/L (0-35); SODIUM 143 mmol/L (137-145); Total Protein 7.2 g/dL (6.3-8.2)
[2017-12-19 22:26] VITALS: BP 141/84; PULSE 85
[2017-12-19 22:33] VITALS: O2SAT 100
--- NOTE | 2017-12-20 08:07 | XRAY ---
Indication: Spotting. Possible torsion. 2-dimensional transabdominal pelvic sonogram was performed. Comparison: None Uterus is anteverted measuring 10.9 x 3.1 x 6.2 cm. Myometrium homogeneous. Endometrial stripe measures 2.3 mm. No endometrial cavity mass or fluid collection. Right ovary measures 3.5 x 3.5 x 4.5 cm and the left measures 6.2 x 4.1 x 6.4 cm with normal color perfusion bilaterally. There is 5.2 cm dominant left ovary cyst and 2.8 cm right ovary cyst. No solid adnexal mass or free fluid. Impression: Bilateral ovary cysts. Remaining transabdominal pelvic sonogram is negative. Comment: Preliminary report was given.
== END 2017-12-19 22:47 | disposition home or self-care (01) ==
LOC: ED 19:24
DX: N92.0 Excessive and frequent menstruation with regular cycle (principal); R10.9 Unspecified abdominal pain; R31.9 Hematuria, unspecified
CPT/HCPCS: 36000; 36415; 76856; 80053; 81000; 82150; 83605; 83690; 84702; 84703; 85025; 87086; 96360; 99284

== ENCOUNTER 2018-09-02 18:41 | Emergency (ER) | payer BC ==
--- NOTE | 2018-09-02 19:13 | ERPHSYRPT ---
- History of Present Illness Time Seen by Provider: 09/02/18 19:00 Historian: patient, family Exam Limitations: no limitations Patient Subjective Stated Complaint: states onset of CP at 1700 today while at work. states pain on the right side of chest. no SOB Triage Nursing Assessment: alert and oriented with c/o right side CP. no SOB. denies cough, fever. lungs clear bilaterally. non radiating pain. Physician History: 28 y/o white female presents with sudden onset at 1700 today of right sided cp described as pressure without radiation. no soa. pressure nearly completely resolved at time of this exam. pt states she has h/o panic attacks. no new meds and no new stressors. Timing/Duration: today Activities at Onset: none Quality: pressure Location: other (right chest pressure) Chest Pain Radiation: no radiation Severity of Pain-Max: moderate Severity of Pain-Current: none Modifying Factors: Improves With: nothing Associated Symptoms: denies symptoms Prior Chest Pain/Cardiac Workup: no prior chest pain, no prior cardiac workup Nitro Today/Relief: no nitro taken today Aspirin Treatment Today: no aspirin today Allergies/Adverse Reactions: pineapple Allergy (Severe, Verified 12/19/17 19:50) latex Allergy (Intermediate, Verified 12/19/17 19:50) Hx Tetanus, Diphtheria Vaccination/Date Given: Yes Hx Influenza Vaccination/Date Given: No Hx Pneumococcal Vaccination/Date Given: No Immunizations Up to Date: (unknown) - Review of Systems Constitutional: No Symptoms Eyes: No Symptoms Ears, Nose, & Throat: No Symptoms Respiratory: No Symptoms Cardiac: Chest Pain (described as pressure) Abdominal/Gastrointestinal: No Symptoms Genitourinary Symptoms: No Symptoms Musculoskeletal: No Symptoms Skin: No Symptoms Neurological: No Symptoms Psychological: No Symptoms Endocrine: No Symptoms Hematologic/Lymphatic: No Symptoms Immunological/Allergic: No Symptoms All Other Systems: Reviewed and Negative - Past Medical History Pertinent Past Medical History: Yes Neurological History: No Pertinent History ENT History: No Pertinent History Cardiac History: No Pertinent History Respiratory History: Asthma Endocrine Medical History: No Pertinent History Musculoskeletal History: No Pertinent History GI Medical History: No Pertinent History History: No Pertinent History Psycho-Social History: Depression Female Reproductive Disorders: No Pertinent History - Past Surgical History Past Surgical History: Yes Neuro Surgical History: No Pertinent History Cardiac: No Pertinent History Respiratory: No Pertinent History Gastrointestinal: Appendectomy Genitourinary: No Pertinent History Musculoskeletal: No Pertinent History Female Surgical History: Section Other Surgical History: back - Social History Smoking Status: Current every day smoker How long have you smoked: 9 yrs Exposure to second hand smoke: No Drug Use: none Patient Lives Alone: No - Female History Hx Last Menstrual Period: 3 weeks Hx Now: No - Nursing Vital Signs Nursing Vital Signs: Initial Vital Signs Temperature 98 F 09/02/18 18:56 Pulse Rate 126 H 09/02/18 18:56 Respiratory Rate 18 09/02/18 18:56 Blood Pressure 134/102 09/02/18 18:56 O2 Sat by Pulse Oximetry 100 09/02/18 18:56 Pain Scale Pain Intensity 0 - Physical Exam General Appearance: mild distress, alert, anxiety Eye Exam: PERRL/EOMI, eyes nml inspection Ears, Nose, Throat Exam: normal ENT inspection, moist mucous membranes Neck Exam: normal inspection, non-tender, supple Respiratory Exam: normal breath sounds, chest tenderness, lungs clear, airway intact, No respiratory distress Cardiovascular Exam: normal heart sounds, normal peripheral pulses, tachycardia Gastrointestinal/Abdomen Exam: soft, No tenderness Pelvic Exam: not done Rectal Exam: not done Back Exam: normal inspection, normal range of motion, No CVA tenderness, No vertebral tenderness Extremity Exam: normal inspection, normal range of motion, pelvis stable Neurologic Exam: alert, oriented x 3, cooperative, 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-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 nml as tested Skin Exam: normal color, warm, dry Lymphatic Exam: No adenopathy SpO2 Interpretation: normal SpO2: 100 O2 Delivery: Room Air - Course Nursing assessment & vital signs reviewed: Yes EKG Interpreted by Me: RATE (120), Sinus Tach, NORMAL AXIS, NORMAL QRS, Non- specific ST Changes, Other (no comparison ekg) Ordered Tests: Active Orders 24 hr Category Date Time Status EKG-ER Only STAT Care 09/02/18 19:14 Active IV Insertion STAT Care 09/02/18 19:14 Active Pulse Oximetry (ED) STAT Care 09/02/18 19:14 Active CHEST 1 VIEW (PORTABLE) Stat Exams 09/02/18 20:15 Taken CBC W DIFF Stat Lab 09/02/18 19:39 Completed CMP Stat Lab 09/02/18 19:39 Completed CULTURE,URINE Stat Lab 09/02/18 19:25 Received D-DIMER QUANTITATION Stat Lab 09/02/18 19:39 Completed HCG,QUALITATIVE URINE Stat Lab 09/02/18 19:25 Completed NT PRO BNP Stat Lab 09/02/18 19:39 Completed PROTIME WITH INR Stat Lab 09/02/18 19:39 Completed TROPONIN Q3H Lab 09/02/18 19:39 Completed TROPONIN Q3H Lab 09/02/18 22:15 Ordered TROPONIN Q3H Lab 09/03/18 01:15 Ordered TROPONIN Q3H Lab 09/03/18 04:15 Ordered TROPONIN Q3H Lab 09/03/18 07:15 Ordered UA W/RFX UR CULTURE Stat Lab 09/02/18 19:25 Completed Medication Summary Discontinued Medications Generic Name Dose Route Start Last Admin Trade Name Freq PRN Reason Stop Dose Admin Aspirin 324 mg 09/02/18 19:14 09/02/18 19:49 Baby Aspirin 81 Mg Chew PO 09/02/18 19:15 324 mg STAT ONE Administration Aspirin Confirm 09/02/18 19:47 Baby Aspirin 81 Mg Chew Administered 09/02/18 19:48 Dose 324 mg .ROUTE .STK-MED ONE Lorazepam 0.5 mg 09/02/18 19:40 09/02/18 19:50 Ativan 2 Mg/1 Ml Vial IV 09/02/18 19:41 0.5 mg STAT ONE Administration Lorazepam Confirm 09/02/18 19:47 Ativan 2 Mg/1 Ml Vial Administered 09/02/18 19:48 Dose 2 mg .ROUTE .STK-MED ONE Lab/Rad Data: Laboratory Result Diagrams 09/02/18 19:39 09/02/18 19:39 Laboratory Results 09/02/18 09/02/18 09/02/18 Range/Units 19:39 19:39 19:39 WBC (4.0-10.5) K/mm3 RBC (4.1-5.4) M/mm3 Hgb (12.0-16.0) gm/dl Hct (35-47) % MCV (78-100) fl MCH (26-32) pg MCHC (32-36) g/dl RDW (11.5-14.0) % Plt Count (150-450) K/mm3 MPV (6-9.5) fl Gran % (36.0-66.0) % Eos # (Auto) (0-0.5) Absolute Lymphs (auto) (1.0-4.6) Absolute Monos (auto) (0.0-1.3) Lymphocytes % (24.0-44.0) % Monocytes % (0.0-12.0) % Eosinophils % (0.00-5.0) % Basophils % (0.0-0.4) % Absolute Granulocytes (1.4-6.9) Basophils # (0-0.4) PT 13.2 H (9.95-12.35) SECONDS INR 1.13 (0.8-3.0) D-Dimer 227 (215-500) ng/mL Sodium 141 (137-145) mmol/L Potassium 4.0 (3.5-5.1) mmol/L Chloride 107 (98-107) mmol/L Carbon Dioxide 24 (22-30) mmol/L Anion Gap 13.8 (5-15) MEQ/L BUN 9 (7-17) mg/dL Creatinine 0.65 (0.52-1.04) mg/dL Estimated GFR > 60.0 ML/MIN Glucose 86 (74-106) mg/dL Calcium 9.9 (8.4-10.2) mg/dL Total Bilirubin 0.50 (0.2-1.3) mg/dL AST 22 (14-36) U/L ALT 19 (0-35) U/L Alkaline Phosphatase 56 (38-126) U/L Troponin I < 0.012 (0.000-0.034) ng/mL NT-Pro-B Natriuret Pep 47.6 (0-450) pg/mL Serum Total Protein 7.1 (6.3-8.2) g/dL Albumin 4.3 (3.5-5.0) g/dL Urine Color (YELLOW) Urine Appearance (CLEAR) Urine pH (5-6) Ur Specific [place] (1.005-1.025) Urine Protein (Negative) Urine Ketones (NEGATIVE) Urine Blood (0-5) Joseph/ul Urine Nitrite (NEGATIVE) Urine Bilirubin (NEGATIVE) Urine Urobilinogen (0-1) mg/dL Ur Leukocyte Esterase (NEGATIVE) Urine WBC (Auto) (0-5) /HPF Urine RBC (Auto) (0-2) /HPF U Hyaline Cast (Auto) (0-2) /LPF U Epithel Cells (Auto) (FEW) /HPF Urine Bacteria (Auto) (NEGATIVE) /HPF Urine Culture Reflexed (NO) Urine Glucose (NEGATIVE) mg/dL Urine HCG, Qual (Negative) 09/02/18 09/02/18 09/02/18 Range/Units 19:39 19:25 19:25 WBC 6.1 (4.0-10.5) K/mm3 RBC 4.79 (4.1-5.4) M/mm3 Hgb 15.3 (12.0-16.0) gm/dl Hct 44.6 (35-47) % MCV 93.1 (78-100) fl MCH 31.9 (26-32) pg MCHC 34.3 (32-36) g/dl RDW 12.9 (11.5-14.0) % Plt Count 221 (150-450) K/mm3 MPV 9.8 H (6-9.5) fl Gran % 55.8 (36.0-66.0) % Eos # (Auto) 0.20 (0-0.5) Absolute Lymphs (auto) 2.03 (1.0-4.6) Absolute Monos (auto) 0.40 (0.0-1.3) Lymphocytes % 33.6 (24.0-44.0) % Monocytes % 6.6 (0.0-12.0) % Eosinophils % 3.3 (0.00-5.0) % Basophils % 0.7 (0.0-0.4) % Absolute Granulocytes 3.38 (1.4-6.9) Basophils # 0.04 (0-0.4) PT (9.95-12.35) SECONDS INR (0.8-3.0) D-Dimer (215-500) ng/mL Sodium (137-145) mmol/L Potassium (3.5-5.1) mmol/L Chloride (98-107) mmol/L Carbon Dioxide (22-30) mmol/L Anion Gap (5-15) MEQ/L BUN (7-17) mg/dL Creatinine (0.52-1.04) mg/dL Estimated GFR ML/MIN Glucose (74-106) mg/dL Calcium (8.4-10.2) mg/dL Total Bilirubin (0.2-1.3) mg/dL AST (14-36) U/L ALT (0-35) U/L Alkaline Phosphatase (38-126) U/L Troponin I (0.000-0.034) ng/mL NT-Pro-B Natriuret Pep (0-450) pg/mL Serum Total Protein (6.3-8.2) g/dL Albumin (3.5-5.0) g/dL Urine Color YELLOW (YELLOW) Urine Appearance SLIGHTLY CLOUDY (CLEAR) Urine pH 5.0 (5-6) Ur Specific [place] 1.005 (1.005-1.025) Urine Protein NEGATIVE (Negative) Urine Ketones NEGATIVE (NEGATIVE) Urine Blood NEGATIVE (0-5) Joseph/ul Urine Nitrite NEGATIVE (NEGATIVE) Urine Bilirubin NEGATIVE (NEGATIVE) Urine Urobilinogen NEGATIVE (0-1) mg/dL Ur Leukocyte Esterase LARGE (NEGATIVE) Urine WBC (Auto) 16-25 (0-5) /HPF Urine RBC (Auto) 0-2 (0-2) /HPF U Hyaline Cast (Auto) 0-2 (0-2) /LPF U Epithel Cells (Auto) RARE (FEW) /HPF Urine Bacteria (Auto) FEW (NEGATIVE) /HPF Urine Culture Reflexed YES (NO) Urine Glucose NEGATIVE (NEGATIVE) mg/dL Urine HCG, Qual NEGATIVE (Negative) - Progress Progress: improved Air Movement: good Progress Note: 09/02/18 20:30 cxr- no acute process Counseled pt/family regarding: lab results, diagnosis, need for follow-up, rad results - Departure Departure Disposition: Home Clinical Impression: Chest pain, UTI (urinary tract infection) Condition: Stable Critical Care Time: No Referrals: ARCENIO PRADHAN [Primary Care Provider] - Additional Instructions: drink plenty of fluids. follow up with primary doctor for further management Prescriptions: Ciprofloxacin [Cipro 500 MG] 500 mg PO BID #14 tablet
[2018-09-02] MEDS ORDERED: BABY ASPIRIN 81 MG CHEW PO ONE (19:14)
[2018-09-02] MEDS ORDERED: Ativan 2 MG/1 ML VIAL IV ONE (19:40)
[2018-09-02 19:43] LABS: BASOPHIL % 0.7 % (0.0-0.4); Basophil (Absolute #) 0.04 (0-0.4); Eosinophil % 3.3 % (0.00-5.0); Granulocyte Absolute (ANC) 3.38 (1.4-6.9); Granulocytes % 55.8 % (36.0-66.0); Hematocrit 44.6 % (35-47); Hemoglobin 15.3 gm/dl (12.0-16.0); Lymphocyte (Absolute #) 2.03 (1.0-4.6); Lymphocytes % 33.6 % (24.0-44.0); Mean Cell Volume 93.1 fl (78-100); Mean Corpuscular Hemoglobin 31.9 pg (26-32); Mean Corpuscular Hgb Concent. 34.3 g/dl (32-36); Mean Platelet Volume 9.8 fl (6-9.5); Monocytes % 6.6 % (0.0-12.0); Platelet Count 221 K/mm3 (150-450); Red Blood Count 4.79 M/mm3 (4.1-5.4); Red Cell Distribution Width 12.9 % (11.5-14.0); White Blood Count 6.1 K/mm3 (4.0-10.5)
[2018-09-02 19:43] LABS: Appearance SLIGHTLY CLOUDY (CLEAR); Bacteria FEW /HPF (NEGATIVE); Bilirubin NEGATIVE (NEGATIVE); Blood NEGATIVE Ery/ul (0-5); Epithelial Cells RARE /HPF (FEW); Glucose NEGATIVE (NEGATIVE); Hyaline Casts 0-2 /LPF (0-2); Ketones NEGATIVE (NEGATIVE); Leukocyte Esterase LARGE (NEGATIVE); Nitrite NEGATIVE (NEGATIVE); Protein,Urine Dip NEGATIVE (Negative); RBC 0-2 /HPF (0-2); Specific Gravity 1.005 (1.005-1.025); Urobilinogen NEGATIVE mg/dL (0-1)
[2018-09-02] MEDS ORDERED: BABY ASPIRIN 81 MG CHEW ONE (19:47)
[2018-09-02] MEDS ORDERED: Ativan 2 MG/1 ML VIAL ONE (19:47)
[2018-09-02 19:50] LABS: INR 1.13 (0.8-3.0); PROTIME 13.2 SECONDS (9.95-12.35)
[2018-09-02 20:03] LABS: ALBUMIN 4.3 g/dL (3.5-5.0); ALKALINE PHOSPHATASE 56 U/L (38-126); ANION GAP 13.8 MEQ/L (5-15); BLOOD UREA NITROGEN 9 mg/dL (7-17); CHLORIDE 107 mmol/L (98-107); Calcium 9.9 mg/dL (8.4-10.2); Carbon Dioxide 24 mmol/L (22-30); Creatinine 1 0.65 mg/dL (0.52-1.04); Glucose 86 mg/dL (74-106); NT PRO BNP 47.6 pg/mL (0-450); SGOT/AST 22 U/L (14-36); SGPT/ALT 19 U/L (0-35); SODIUM 141 mmol/L (137-145); Total Protein 7.1 g/dL (6.3-8.2)
[2018-09-02] MEDS ORDERED: Cipro 500 MG PO ONE (20:30)
[2018-09-02] MEDS ORDERED: Cipro 500 MG ONE (20:37)
[2018-09-02 20:58] VITALS: BP 124/80; PULSE 111; O2SAT 99
--- NOTE | 2018-09-02 21:36 | XRAY ---
Indication: Chest pain. Comparison: July 19, 2015. Portable chest again demonstrates normal heart, lungs, and bony thorax.
== END 2018-09-02 21:00 | disposition home or self-care (01) ==
LOC: ED 18:41
DX: R07.9 Chest pain, unspecified (principal); N39.0 Urinary tract infection, site not specified
CPT/HCPCS: 36000; 36415; 71045; 76705; 80053; 80076; 81001; 83880; 84484; 84703; 85025; 85379; 85610; 87086; 93005; 96374; 99284; J2060; A9270-GY

== ENCOUNTER 2019-05-04 20:53 | Emergency (ER) | payer BC ==
[2019-05-04] MEDS ORDERED: AMOXIL 500 MG PO ONE (20:54)
[2019-05-05 01:43] LABS: Hematocrit 42.5 % (35-47); Mean Corpuscular Hemoglobin 32.5 pg (26-32); Mean Corpuscular Hgb Concent. 35.3 g/dl (32-36); Red Blood Count 4.62 M/mm3 (4.1-5.4); White Blood Count 6.8 K/mm3 (4.0-10.5)
[2019-05-05 01:44] LABS: BASOPHIL % 0.4 % (0.0-0.4); Eosinophil % 2.5 % (0.00-5.0); Lymphocytes % 27.5 % (24.0-44.0); Mean Platelet Volume 9.8 fl (7.5-11.0); Monocytes % 7.4 % (0.0-12.0); Neutrophil % 62.2 % (36.0-66.0); Platelet Count 269 K/mm3 (150-450)
[2019-05-05 01:45] LABS: ALBUMIN 4.4 g/dL (3.5-5.0); ALKALINE PHOSPHATASE 50 U/L (38-126); ANION GAP 12.7 MEQ/L (5-15); BLOOD UREA NITROGEN 10 mg/dL (7-17); CHLORIDE 105 mmol/L (98-107); Calcium 9.4 mg/dL (8.4-10.2); Carbon Dioxide 25 mmol/L (22-30); Creatinine 1 0.59 mg/dL (0.52-1.04); Glucose 89 mg/dL (74-106); LIPASE 130 U/L (23-300); Potassium 3.7 mmol/L (3.5-5.1); SGOT/AST 21 U/L (14-36); SGPT/ALT 13 U/L (0-35); SODIUM 139 mmol/L (137-145); Total Protein 7.5 g/dL (6.3-8.2)
[2019-05-05 01:46] LABS: Appearance SLIGHTLY CLOUDY (CLEAR); HCG, Quantitative (Inhouse) 63354 mIU/ml; Leukocyte Esterase LARGE (NEGATIVE)
[2019-05-05 01:47] LABS: Bilirubin NEGATIVE (NEGATIVE); Blood NEGATIVE Ery/ul (0-5); Epithelial Cells RARE /HPF (FEW); Glucose NEGATIVE (NEGATIVE); Ketones NEGATIVE (NEGATIVE); Mucus SLIGHT /HPF (NEGATIVE); Nitrite NEGATIVE (NEGATIVE); Protein,Urine Dip NEGATIVE (Negative); RBC 0-2 /HPF (0-2); Urobilinogen 2 mg/dL (0-1)
[2019-05-05 01:56] LABS: Bacteria FEW /HPF (NEGATIVE)
--- NOTE | 2019-05-05 09:15 | XRAY ---
Indication: Cramping. Two-dimensional transabdominal early OB ultrasound performed. Comparison: None for this . Uterus is anteverted with a single intrauterine gestational sac. Mean sac diameter is 1.91 cm corresponding to 6 weeks 2 days. Query pole with mean crown-rump length 0.34 cm corresponding to 6 weeks 0 days. No heart tones at this time, possibly early . No abnormal subchorionic fluid collection. Both ovaries are sonographically unremarkable. No suspicious adnexal mass or free fluid. Impression: Single intrauterine gestational sac with possible tiny pole measuring 6 weeks 1 day. No heart tones at this time, possibly early . Correlate with serial beta hCG and follow-up sonogram regarding viability. MTDD
== END 2019-05-05 00:20 | disposition home or self-care (01) ==
LOC: ED 20:53
DX: O23.41 Unspecified infection of urinary tract in pregnancy, first trimester (principal); R10.9 Unspecified abdominal pain
CPT/HCPCS: 36415; 76801; 80053; 81001; 83690; 84702; 84703; 85025; 87086; 96360; 99283; A9270-GY

== ENCOUNTER → 2019-05-04 | Emergency (ER) | payer BC ==
[~2019-05-04] MED LIST: AMOXIL 500 MG ONE
== END ==
LOC: CANPREER → ED 20:53
DX: Z53.9 Procedure and treatment not carried out, unspecified reason (principal)
CPT/HCPCS: A9270-GY

== ENCOUNTER 2021-06-12 05:00 | Emergency (ER) | payer BC ==
--- NOTE | 2021-06-12 05:17 | ERPHSYRPT ---
- History of Present Illness Historian: patient Exam Limitations: no limitations Timing/Duration: today Quality: sharpness, stabbing Abdominal Pain Onset Location: RUQ, LUQ, epigastric, flank (Bilateral) Severity of Pain-Max: moderate Severity of Pain-Current: moderate Associated Symptoms: nausea, vomiting Previous symptoms: same symptoms as today (Distant past), no recent treatment Hx Tetanus, Diphtheria Vaccination/Date Given: Yes Hx Influenza Vaccination/Date Given: No Hx Pneumococcal Vaccination/Date Given: No <JOSE RAFAEL LAGOS - Last Filed: 06/12/21 06:44> <UMANG MCCOY - Last Filed: 06/12/21 09:32> - History of Present Illness Time Seen by Provider: 06/12/21 05:17 Physician History: This is a 30-year-old white female 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 But this morning, at 4 AM, she suddenly had more severe pain in the flank as well as upper abdomen with associated nausea vomiting diarrhea. She is not had a fever. She is not been around anybody that has had flulike symptoms. Patient has had a section and appendectomy in the past. She has had urinary frequency and some dysuria as well. The last time she had the symptoms, per her report, she had a urinary tract infection. (JOSE RAFAEL LAGOS) Allergies/Adverse Reactions: pineapple Allergy (Severe, Verified 06/12/21 05:18) latex Allergy (Intermediate, Verified 06/12/21 05:18) Home Medications: Fluoxetine HCl [Prozac] 60 mg PO DAILY 06/12/21 [History] Travel Risk - International Travel Have you traveled outside of the country in past 3 weeks: No - Coronavirus Screening Are you exhibiting any of the following symptoms?: No Close contact with a COVID-19 positive Pt in past 14-21 Days: No <JOSE RAFAEL LAGOS - Last Filed: 06/12/21 06:44> - Review of Systems Constitutional: No Symptoms Eyes: No Symptoms Ears, Nose, & Throat: No Symptoms Respiratory: No Symptoms Cardiac: No Symptoms Abdominal/Gastrointestinal: Abdominal Pain, Nausea, Vomiting, Diarrhea Genitourinary Symptoms: Dysuria, Frequency Musculoskeletal: No Symptoms Skin: No Symptoms Neurological: No Symptoms Psychological: No Symptoms Endocrine: No Symptoms Hematologic/Lymphatic: No Symptoms Immunological/Allergic: No Symptoms All Other Systems: Reviewed and Negative <JOSE RAFAEL LAGOS - Last Filed: 06/12/21 06:44> - Past Medical History Pertinent Past Medical History: Yes Neurological History: No Pertinent History ENT History: No Pertinent History Cardiac History: No Pertinent History Respiratory History: Asthma Endocrine Medical History: No Pertinent History Musculoskeletal History: No Pertinent History GI Medical History: No Pertinent History History: No Pertinent History Psycho-Social History: Depression Female Reproductive Disorders: No Pertinent History - Past Surgical History Past Surgical History: Yes Neuro Surgical History: No Pertinent History Cardiac: No Pertinent History Respiratory: No Pertinent History Gastrointestinal: Appendectomy Genitourinary: No Pertinent History Musculoskeletal: No Pertinent History Female Surgical History: Section Other Surgical History: back - Social History Smoking Status: Current every day smoker How long have you smoked: 9 yrs Exposure to second hand smoke: No Drug Use: none Patient Lives Alone: No <JOSE RAFAEL LAGOS - Last Filed: 06/12/21 06:44> - Physical Exam General Appearance: mild distress, alert, anxiety Eye Exam: PERRL/EOMI, eyes nml inspection Ears, Nose, Throat Exam: normal ENT inspection, moist mucous membranes Neck Exam: normal inspection, non-tender, supple, full range of motion Respiratory Exam: normal breath sounds, lungs clear, airway intact, No chest tenderness, No respiratory distress Cardiovascular Exam: regular rate/rhythm, normal heart sounds, normal peripheral pulses Gastrointestinal/Abdomen Exam: soft, normal bowel sounds, tenderness (Mild), No guarding, No rebound Pelvic Exam: not done Rectal Exam: not done Back Exam: normal inspection, normal range of motion, CVA tenderness (Mild bilateral), No vertebral tenderness Extremity Exam: normal inspection, normal range of motion, pelvis stable Neurologic Exam: alert, oriented x 3, cooperative, distance learning technician II-XII nml as tested, normal mood/affect, nml cerebellar function, nml station & gait, sensation nml Skin Exam: normal color, warm, dry Lymphatic Exam: No adenopathy SpO2 Interpretation: normal SpO2: 99 O2 Delivery: Room Air <JOSE RAFAEL LAGOS - Last Filed: 06/12/21 06:44> - Nursing Vital Signs Nursing Vital Signs: Initial Vital Signs Temperature 97.4 F 06/12/21 05:00 Pulse Rate 99 H 06/12/21 05:00 Respiratory Rate 16 06/12/21 05:00 Blood Pressure 144/99 06/12/21 05:00 O2 Sat by Pulse Oximetry 99 06/12/21 05:00 Pain Scale Pain Intensity 4 - Course Nursing assessment & vital signs reviewed: Yes <JOSE RAFAEL LAGOS - Last Filed: 06/12/21 06:44> - CT Exams Abdomen/Pelvis CT Interpretation: Tele-radiologist Report (No acute findings observed on CT abdomen pelvis.) <UMANG MCCOY - Last Filed: 06/12/21 09:32> Ordered Tests: Active Orders 24 hr Category Date Time Status IV Insertion STAT Care 06/12/21 05:23 Active ABDOMEN AND PELVIS W/0 CONTRAS [CT] Stat Exams 06/12/21 05:23 Taken AMYLASE Stat Lab 06/12/21 05:30 Completed CBC W DIFF Stat Lab 06/12/21 05:30 Completed CMP Stat Lab 06/12/21 05:30 Completed CULTURE,URINE Stat Lab 06/12/21 06:38 Received HCG,QUALITATIVE URINE Stat Lab 06/12/21 06:38 Completed LIPASE Stat Lab 06/12/21 05:30 Completed Lactic Acid Stat Lab 06/12/21 05:30 Completed UA W/RFX UR CULTURE Stat Lab 06/12/21 06:38 Completed Medication Summary Discontinued Medications Generic Name Dose Route Start Last Admin Trade Name Freq PRN Reason Stop Dose Admin Al Hydrox/Mg Hydrox/Simethicone Confirm 06/12/21 08:30 Mag Hydrox/Al Hydrox/Simeth 30 Ml Udcup Administered 06/12/21 08:31 Dose 30 ml .ROUTE .STK-MED ONE Hydromorphone HCl 1 mg 06/12/21 05:23 06/12/21 05:32 Hydromorphone 1 Mg/1ml Inj 1 Mg/Ml Syringe IV 06/12/21 05:24 1 mg STAT ONE Administration Hydromorphone HCl Confirm 06/12/21 05:28 Hydromorphone 1 Mg/1ml Inj 1 Mg/Ml Syringe Administered 06/12/21 05:29 Dose 1 mg .ROUTE .STK-MED ONE Sodium Chloride 1,000 mls @ 999 mls/hr 06/12/21 05:23 06/12/21 06:39 Sodium Chloride 0.9% 1000 Ml IV 06/12/21 06:23 Infused .Q1H1M STA Infusion Sodium Chloride Confirm 06/12/21 05:28 Sodium Chloride 0.9% 1000 Ml Administered 06/12/21 05:29 Dose 1,000 mls @ ud .ROUTE .STK-MED ONE Lidocaine HCl Confirm 06/12/21 08:30 Lidocaine Hcl Viscous 1 Ml Administered 06/12/21 08:31 Dose 15 ml .ROUTE .STK-MED ONE Magnesium Hydroxide 45 ml 06/12/21 08:06 06/12/21 08:33 Mag Hydrx/Alum Hyd/Simeth/Lido 45 Ml Bottle PO 06/12/21 08:07 45 ml STAT ONE Administration Ondansetron HCl 4 mg 06/12/21 05:23 06/12/21 05:32 Ondansetron Hcl 4 Mg/2 Ml Vial IV 06/12/21 05:24 4 mg STAT ONE Administration Ondansetron HCl Confirm 06/12/21 05:28 Ondansetron Hcl 4 Mg/2 Ml Vial Administered 06/12/21 05:29 Dose 4 mg .ROUTE .STK-MED ONE Prochlorperazine Edisylate 10 mg 06/12/21 06:38 06/12/21 06:47 Prochlorperazine Edisylate 10 Mg/2 Ml Vial IV 06/12/21 06:39 10 mg STAT ONE Administration Prochlorperazine Edisylate Confirm 06/12/21 06:46 Prochlorperazine Edisylate 10 Mg/2 Ml Vial Administered 06/12/21 06:47 Dose 10 mg .ROUTE .STK-MED ONE Promethazine HCl 25 mg 06/12/21 08:53 06/12/21 08:59 Promethazine Hcl 25 Mg Tablet PO 06/12/21 08:54 25 mg STAT ONE Administration Promethazine HCl Confirm 06/12/21 08:53 Promethazine Hcl 25 Mg Tablet Administered 06/12/21 08:54 Dose 25 mg .ROUTE .STK-MED ONE Lab/Rad Data: Laboratory Result Diagrams 06/12/21 05:30 06/12/21 05:30 Laboratory Results 02/24/22 02/24/22 02/24/22 Range/Units 06:38 06:38 05:30 WBC (4.0-10.5) K/mm3 RBC (4.1-5.4) M/mm3 Hgb (12.0-16.0) gm/dl Hct (35-47) % MCV (78-100) fl MCH (26-32) pg MCHC (32-36) g/dl RDW (11.5-14.0) % Plt Count (150-450) K/mm3 MPV (7.5-11.0) fl Gran % (36.0-66.0) % Eos # (Auto) (0-0.5) Absolute Lymphs (auto) (1.0-4.6) Absolute Monos (auto) (0.0-1.3) Lymphocytes % (24.0-44.0) % Monocytes % (0.0-12.0) % Eosinophils % (0.00-5.0) % Basophils % (0.0-0.4) % Absolute Granulocytes (1.4-6.9) Basophils # (0-0.4) Sodium 137 (137-145) mmol/L Potassium 3.5 (3.5-5.1) mmol/L Chloride 105 (98-107) mmol/L Carbon Dioxide 21 L (22-30) mmol/L Anion Gap 14.9 (5-15) MEQ/L BUN 7 (7-17) mg/dL Creatinine 0.64 (0.52-1.04) mg/dL Estimated GFR > 60.0 ML/MIN Glucose 109 H (74-106) mg/dL Lactic Acid (0.4-2.0) Calcium 9.4 (8.4-10.2) mg/dL Total Bilirubin 0.60 (0.2-1.3) mg/dL AST 22 (14-36) U/L ALT 14 (0-35) U/L Alkaline Phosphatase 87 (38-126) U/L Serum Total Protein 7.7 (6.3-8.2) g/dL Albumin 4.7 (3.5-5.0) g/dL Amylase 67 (30-110) U/L Lipase 104 (23-300) U/L Urine Color YELLOW (YELLOW) Urine Appearance SLIGHTLY CLOUDY (CLEAR) Urine pH 5.0 (5-6) Ur Specific [place] 1.015 (1.005-1.025) Urine Protein NEGATIVE (Negative) Urine Ketones NEGATIVE (NEGATIVE) Urine Blood NEGATIVE (0-5) Joseph/ul Urine Nitrite NEGATIVE (NEGATIVE) Urine Bilirubin NEGATIVE (NEGATIVE) Urine Urobilinogen NEGATIVE (0-1) mg/dL Ur Leukocyte Esterase TRACE (NEGATIVE) Urine WBC (Auto) 6-10 (0-5) /HPF Urine RBC (Auto) 0-2 (0-2) /HPF U Epithel Cells (Auto) RARE (FEW) /HPF Urine Bacteria (Auto) RARE (NEGATIVE) /HPF Urine Mucus (Auto) SLIGHT (NEGATIVE) /HPF Urine Culture Reflexed YES (NO) Urine Glucose NEGATIVE (NEGATIVE) mg/dL Urine HCG, Qual NEGATIVE (Negative) 06/12/21 06/12/21 Range/Units 05:30 05:30 WBC 9.6 (4.0-10.5) K/mm3 RBC 5.18 (4.1-5.4) M/mm3 Hgb 15.3 (12.0-16.0) gm/dl Hct 46.0 (35-47) % MCV 88.8 (78-100) fl MCH 29.5 (26-32) pg MCHC 33.3 (32-36) g/dl RDW 15.1 H (11.5-14.0) % Plt Count 324 (150-450) K/mm3 MPV 9.9 (7.5-11.0) fl Gran % 76.5 H (36.0-66.0) % Eos # (Auto) 0.22 (0-0.5) Absolute Lymphs (auto) 1.34 (1.0-4.6) Absolute Monos (auto) 0.66 (0.0-1.3) Lymphocytes % 14.0 L (24.0-44.0) % Monocytes % 6.9 (0.0-12.0) % Eosinophils % 2.3 (0.00-5.0) % Basophils % 0.3 (0.0-0.4) % Absolute Granulocytes 7.32 H (1.4-6.9) Basophils # 0.03 (0-0.4) Sodium (137-145) mmol/L Potassium (3.5-5.1) mmol/L Chloride (98-107) mmol/L Carbon Dioxide (22-30) mmol/L Anion Gap (5-15) MEQ/L BUN (7-17) mg/dL Creatinine (0.52-1.04) mg/dL Estimated GFR ML/MIN Glucose (74-106) mg/dL Lactic Acid 1.8 (0.4-2.0) Calcium (8.4-10.2) mg/dL Total Bilirubin (0.2-1.3) mg/dL AST (14-36) U/L ALT (0-35) U/L Alkaline Phosphatase (38-126) U/L Serum Total Protein (6.3-8.2) g/dL Albumin (3.5-5.0) g/dL Amylase (30-110) U/L Lipase (23-300) U/L Urine Color (YELLOW) Urine Appearance (CLEAR) Urine pH (5-6) Ur Specific [place] (1.005-1.025) Urine Protein (Negative) Urine Ketones (NEGATIVE) Urine Blood (0-5) Joseph/ul Urine Nitrite (NEGATIVE) Urine Bilirubin (NEGATIVE) Urine Urobilinogen (0-1) mg/dL Ur Leukocyte Esterase (NEGATIVE) Urine WBC (Auto) (0-5) /HPF Urine RBC (Auto) (0-2) /HPF U Epithel Cells (Auto) (FEW) /HPF Urine Bacteria (Auto) (NEGATIVE) /HPF Urine Mucus (Auto) (NEGATIVE) /HPF Urine Culture Reflexed (NO) Urine Glucose (NEGATIVE) mg/dL Urine HCG, Qual (Negative) - Progress Progress: improved, pain not gone completely, re-examined Counseled pt/family regarding: lab results, diagnosis <JOSE RAFAEL LAGOS - Last Filed: 06/12/21 06:44> - Progress Counseled pt/family regarding: need for follow-up, rad results <UMANG MCCOY - Last Filed: 06/12/21 09:32> - Progress Progress Note: 06/12/21 06:44 This patient is signed out to Dr. Umang Mccoy at shift change. I reviewed the patient history and pending work-up that he needs to follow-up on. He will make final disposition. (JOSE RAFAEL LAGOS) Patient endorsed to Dr. Mccoy at approximately [address] Mccoy advised to follow- up on pending CT abdomen pelvis. CT abdomen pelvis reviewed. No acute findings. Patient complains of epigastric pain. Patient received a GI [place]. Patient also received an additional antinausea medication/Phenergan. Patient feels much better. Patient drank water in our ED. Patient tolerated her water no vomiting. UA suggestive of UTI. Will discharge home. Patient requesting discharge. We will forward a prescription for Macrobid and Zofran to patient's pharmacy. Patient agrees to follow-up with her primary care doctor within 48 hours for reevaluation. Patient voices no other complaints or concerns at this time. Portions of this note were created with voice recognition technology. There may be grammatical, spelling, punctuation or sound alike errors 06/12/21 09:26 (UMANG MCCOY) - Departure Departure Disposition: Home Critical Care Time: No <JOSE RAFAEL LAGOS - Last Filed: 06/12/21 06:44> - Departure Departure Disposition: Home <UMANG MCCOY - Last Filed: 06/12/21 09:32> - Departure Clinical Impression: Abdominal pain, Vomiting, UTI (urinary tract infection), Nausea Condition: Stable Referrals: ARCENIO PIERRE [facility] EDUCATOR [Primary Care Provider] - Follow up/PCP as directed Prescriptions: Ondansetron ODT 4 MG [Zofran Odt 4 mg] 4 mg PO Q6H PRN PRN #10 tablet PRN Reason: Vomiting Nitrofurantoin Monohyd/M-Cryst [Macrobid 100 mg Capsule] 100 mg PO BID 7 Days #14 cap
[2021-06-12] MEDS ORDERED: Sodium Chloride 0.9% 1000 ML 1,000 ML IV STA (05:23)
[2021-06-12] MEDS ORDERED: Hydromorphone 1 mg/ml Injection IV ONE (05:23)
[2021-06-12] MEDS ORDERED: Zofran 4 MG/2 ML VIAL IV ONE (05:23)
[2021-06-12] MEDS ORDERED: Sodium Chloride 0.9% 1000 ML 1,000 ML ONE (05:28)
[2021-06-12] MEDS ORDERED: Zofran 4 MG/2 ML VIAL ONE (05:28)
[2021-06-12] MEDS ORDERED: Hydromorphone 1 mg/ml Injection ONE (05:28)
[2021-06-12 05:42] LABS: Absolute Neutrophil Ct (ANC) 7.32 (1.4-6.9); Basophil (Absolute #) 0.03 (0-0.4); Eosinophil % 2.3 % (0.00-5.0); Eosinophil (Absolute #) 0.22 (0-0.5); Hemoglobin 15.3 gm/dl (12.0-16.0); Lymphocyte (Absolute #) 1.34 (1.0-4.6); Mean Cell Volume 88.8 fl (78-100); Mean Corpuscular Hemoglobin 29.5 pg (26-32); Mean Corpuscular Hgb Concent. 33.3 g/dl (32-36); Mean Platelet Volume 9.9 fl (7.5-11.0); Monocyte (Absolute #) 0.66 (0.0-1.3); Monocytes % 6.9 % (0.0-12.0); Neutrophil % 76.5 % (36.0-66.0); Platelet Count 324 K/mm3 (150-450); Red Blood Count 5.18 M/mm3 (4.1-5.4); Red Cell Distribution Width 15.1 % (11.5-14.0); White Blood Count 9.6 K/mm3 (4.0-10.5)
[2021-06-12 05:53] LABS: ALBUMIN 4.7 g/dL (3.5-5.0); ALKALINE PHOSPHATASE 87 U/L (38-126); AMYLASE 67 U/L (30-110); ANION GAP 14.9 MEQ/L (5-15); BLOOD UREA NITROGEN 7 mg/dL (7-17); CHLORIDE 105 mmol/L (98-107); Calcium 9.4 mg/dL (8.4-10.2); Carbon Dioxide 21 mmol/L (22-30); Creatinine 1 0.64 mg/dL (0.52-1.04); EST GLOMERULAR FILTRATION RATE > 60.0 ML/MIN; Glucose 109 mg/dL (74-106); LIPASE 104 U/L (23-300); Potassium 3.5 mmol/L (3.5-5.1); SGOT/AST 22 U/L (14-36); SGPT/ALT 14 U/L (0-35); SODIUM 137 mmol/L (137-145); Total Protein 7.7 g/dL (6.3-8.2)
[2021-06-12] MEDS ORDERED: Compazine 10 MG/2 ML IV ONE (06:38)
[2021-06-12] MEDS ORDERED: Compazine 10 MG/2 ML ONE (06:46)
[2021-06-12 06:49] LABS: Appearance SLIGHTLY CLOUDY (CLEAR); Bacteria RARE /HPF (NEGATIVE); Bilirubin NEGATIVE (NEGATIVE); Blood NEGATIVE Ery/ul (0-5); Epithelial Cells RARE /HPF (FEW); Glucose NEGATIVE (NEGATIVE); Ketones NEGATIVE (NEGATIVE); Leukocyte Esterase TRACE (NEGATIVE); Mucus SLIGHT /HPF (NEGATIVE); Nitrite NEGATIVE (NEGATIVE); Protein,Urine Dip NEGATIVE (Negative); RBC 0-2 /HPF (0-2); Specific Gravity 1.015 (1.005-1.025); Urobilinogen NEGATIVE mg/dL (0-1)
[2021-06-12] MEDS ORDERED: GI COCKTAIL 45 ML (Maalox/Lidocaine) PO ONE (08:06)
[2021-06-12] MEDS ORDERED: MAALOX ES 30 ML UNIT DOSE ONE (08:30)
[2021-06-12] MEDS ORDERED: XYLOCAINE HCl Viscous ONE (08:30)
[2021-06-12] MEDS ORDERED: PHENERGAN 25 MG ONE (08:53)
[2021-06-12] MEDS ORDERED: PHENERGAN 25 MG PO ONE (08:53)
[2021-06-12 09:27] VITALS: BP 124/84; PULSE 83; O2SAT 99
--- NOTE | 2021-06-14 11:30 | XRAY ---
Exam: CT of the abdomen and pelvis without IV contrast from 06/12/2021. CTDI: 4.49 mGy Comparison: CT of the abdomen and pelvis without IV contrast from the 12/10/2016. Indication: 30-year-old female with upper abdominal pain within both right upper quadrant and left upper quadrant associated with nausea/vomiting 3 hours. The patient has a history of appendectomy about 5 years ago. Technique: Non-IV contrast axial images were obtained through the abdomen and pelvis. No oral contrast was given. Reconstructed coronal and sagittal images were created and reviewed. Findings: The lung bases appear clear. The heart size is normal. The liver appears of unremarkable size and uniform attenuation. No gross hepatic mass or intrahepatic biliary duct distention is seen. The gallbladder is distended and reveals no dense calcifications within it. The spleen again appears borderline enlarged measuring about 12.6 cm in greatest transverse diameter representing no change. No focal splenic mass is seen. The pancreas appears normal without inflammatory changes, mass, or pancreatic duct distention. The adrenal glands are of normal size and configuration. The kidneys appear of unremarkable size and reveal no calculi or hydronephrosis. No gross renal mass is seen. The abdominal aorta reveals no evidence of aneurysm. No abnormal retroperitoneal lymphadenopathy is seen. There is minimal protrusion of intraperitoneal fat into the subcutaneous fat at the level of the umbilicus on midline sagittal image #102. This is unchanged. No bowel containing ventral hernia seen. No free intraperitoneal air is seen. The bowel does not appear abnormally distended (no bowel obstruction). The appendix is surgically absent within the right lower quadrant. I see no significant diverticulosis or diverticulitis. The uterus is anteflexed and tilted to the right of midline. The ovaries appeared grossly unremarkable. No abnormal pelvic mass or lymphadenopathy is seen. No free intraperitoneal fluid is identified. A few small calcified phleboliths are seen within the inferior pelvis. The urinary bladder is partially empty. No intraluminal calculi are seen within the urinary bladder. The skeleton reveals no acute fracture or aggressive bone lesion. Minimal anterior vertebral endplate spurring is seen within the lower thoracic spine. A couple small Schmorl's nodes are seen near the thoracolumbar junction representing no change. Impression: 1. No acute intra-abdominal or pelvic findings are seen. 2. I again see evidence of borderline splenomegaly without evidence of focal mass representing no change. 3. The patient is status post appendectomy with some suture material/clips at this anticipated location.
== END 2021-06-12 09:40 | disposition home or self-care (01) ==
LOC: ED 05:00
DX: N39.0 Urinary tract infection, site not specified (principal); R11.2 Nausea with vomiting, unspecified; R10.11 Right upper quadrant pain; R10.12 Left upper quadrant pain; R10.13 Epigastric pain; R35.0 Frequency of micturition; R30.0 Dysuria; Z72.0 Tobacco use
CPT/HCPCS: 36000; 36415; 74176; 80053; 81001; 82150; 83605; 83690; 84703; 85025; 87086; 96374; 96375; 99284; J1170; J2405; A9270-GY

== ENCOUNTER 2022-01-17 20:14 | Emergency (ER) | payer BC ==
--- NOTE | 2022-01-17 20:16 | ERPHSYRPT ---
- History of Present Illness Time Seen by Provider: 01/17/22 20:16 Source: patient Exam Limitations: no limitations Physician History: This is a 31-year-old white female who has left lower molar dental pain that was intermittent for couple days but today became more constant. She has tried Tylenol ibuprofen and Orajel without benefit. She is not seen a dentist yet for this issue. Timing/Duration: gradual onset ENT Location: dental Prearrival Treatment: over the counter meds Associated Symptoms: tooth pain (Left lower molar) Allergies/Adverse Reactions: pineapple Allergy (Severe, Verified 01/17/22 20:29) latex Allergy (Intermediate, Verified 01/17/22 20:29) Home Medications: Clomipramine HCl 150 mg PO HS 01/17/22 [History] Lisdexamfetamine Dimesylate [Vyvanse] 50 mg PO DAILY 01/17/22 [History] Hx Tetanus, Diphtheria Vaccination/Date Given: Yes Hx Influenza Vaccination/Date Given: No Hx Pneumococcal Vaccination/Date Given: No Travel Risk - International Travel Have you traveled outside of the country in past 3 weeks: No - Coronavirus Screening Are you exhibiting any of the following symptoms?: No Close contact with a COVID-19 positive Pt in past 14-21 Days: No - Vaccine Status Have you recieved a Covid-19 vaccination: Yes 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: [employer] - Vaccination Dates Date of 2cond Vaccination (if applicable): 04/13/21 - Review of Systems Constitutional: No Symptoms Eyes: No Symptoms Ears, Nose, & Throat: Other (Dental pain left lower molar) Respiratory: No Symptoms Cardiac: No Symptoms Abdominal/Gastrointestinal: No Symptoms Genitourinary Symptoms: No Symptoms Musculoskeletal: No Symptoms Skin: No Symptoms Neurological: No Symptoms Psychological: No Symptoms Endocrine: No Symptoms Hematologic/Lymphatic: No Symptoms Immunological/Allergic: No Symptoms All Other Systems: Reviewed and Negative - Past Medical History Pertinent Past Medical History: Yes Neurological History: No Pertinent History ENT History: No Pertinent History Cardiac History: No Pertinent History Respiratory History: Asthma Endocrine Medical History: No Pertinent History Musculoskeletal History: No Pertinent History GI Medical History: No Pertinent History History: No Pertinent History Psycho-Social History: Depression Female Reproductive Disorders: No Pertinent History - Past Surgical History Past Surgical History: Yes Neuro Surgical History: No Pertinent History Cardiac: No Pertinent History Respiratory: No Pertinent History Gastrointestinal: Appendectomy Genitourinary: No Pertinent History Musculoskeletal: No Pertinent History Female Surgical History: Section Other Surgical History: back - Social History Smoking Status: Current every day smoker How long have you smoked: 9 yrs Exposure to second hand smoke: No Drug Use: none Patient Lives Alone: No - Nursing Vital Signs Nursing Vital Signs: Initial Vital Signs Temperature 97.8 F 01/17/22 20:23 Pulse Rate 116 H 01/17/22 20:23 Respiratory Rate 17 01/17/22 20:23 Blood Pressure 148/99 01/17/22 20:23 O2 Sat by Pulse Oximetry 98 01/17/22 20:23 Pain Scale Pain Intensity 9 - Physical Exam General Appearance: no apparent distress, alert, anxiety Ordered Tests: Medication Summary Discontinued Medications Generic Name Dose Route Start Last Admin Trade Name Christina PRN Reason Stop Dose Admin Amoxicillin 500 mg 01/17/22 20:42 01/17/22 20:46 Amoxicillin Trihydrate 500 Mg Capsule PO 01/17/22 20:43 500 mg STAT ONE Administration Amoxicillin Confirm 01/17/22 20:46 Amoxicillin Trihydrate 500 Mg Capsule Administered 01/17/22 20:47 Dose 500 mg .ROUTE .STK-MED ONE Oxycodone/Acetaminophen 1 tab 01/17/22 20:42 01/17/22 20:46 Oxycodone Hcl/Apap 5 Mg/325 Mg Tablet PO 01/17/22 20:43 1 tab STAT STA Administration Oxycodone/Acetaminophen Confirm 01/17/22 20:45 Oxycodone Hcl/Apap 5 Mg/325 Mg Tablet Administered 01/17/22 20:46 Dose 1 tab .ROUTE .STK-MED ONE - Progress Progress: unchanged Counseled pt/family regarding: diagnosis - Departure Departure Disposition: Home Clinical Impression: Pain due to dental caries Condition: Stable Critical Care Time: No Referrals: ARCENIO PRADHAN NP [Primary Care Provider] - Follow up/PCP as directed Additional Instructions: Take medication as prescribed. Follow-up with the dentist for definitive care. Continue using Orajel, ibuprofen and Tylenol for pain control. Prescriptions: Amoxicillin 500 mg Cap [Amoxil 500 mg] 500 mg PO TID #30 cap
[2022-01-17 20:24] VITALS: O2SAT 98
[2022-01-17] MEDS ORDERED: PERCOCET TABLET 5/325MG PO STA ×2 (20:42→21:00)
[2022-01-17] MEDS ORDERED: AMOXIL 500 MG PO ONE (20:42)
[2022-01-17] MEDS ORDERED: PERCOCET TABLET 5/325MG ONE ×2 (20:45→21:01)
[2022-01-17] MEDS ORDERED: AMOXIL 500 MG ONE (20:46)
[2022-01-17 21:12] VITALS: BP 144/90; PULSE 104
== END 2022-01-17 21:12 | disposition home or self-care (01) ==
LOC: ED 20:14
DX: K02.9 Dental caries, unspecified (principal); K08.89 Other specified disorders of teeth and supporting structures; Z72.0 Tobacco use; Z79.899 Other long term (current) drug therapy
CPT/HCPCS: 99282; A9270-GY

== ENCOUNTER 2022-01-18 20:04 | Emergency (ER) | payer BC ==
[2022-01-18] MEDS ORDERED: Zofran 4 MG/2 ML VIAL IV ONE (20:31)
[2022-01-18] MEDS ORDERED: MAALOX ES 30 ML UNIT DOSE PO ONE (20:31)
[2022-01-18] MEDS ORDERED: MORPHINE SULFATE 4 MG INJ IV ONE (20:31)
[2022-01-18] MEDS ORDERED: CETACAINE SPRAY TP ONE (20:31)
[2022-01-18] MEDS ORDERED: CLINDAMYCIN-D5W 900 MG/50 ML*** 900 MG/50 ML BAG IV STA (20:31)
[2022-01-18] MEDS ORDERED: XYLOCAINE VISCOUS 2% 15 ML CUP PO ONE (20:32)
[2022-01-18] MEDS ORDERED: Zofran 4 MG/2 ML VIAL ONE (20:34)
[2022-01-18] MEDS ORDERED: MORPHINE SULFATE 4 MG INJ ONE (20:35)
[2022-01-18] MEDS ORDERED: CLINDAMYCIN-D5W 900 MG/50 ML*** 900 MG/50 ML BAG IV ONE (20:35)
[2022-01-18] MEDS ORDERED: XYLOCAINE VISCOUS 2% 15 ML CUP ONE (20:42)
[2022-01-18] MEDS ORDERED: MAALOX ES 30 ML UNIT DOSE ONE (20:42)
--- NOTE | 2022-01-18 20:45 | ERPHSYRPT ---
- History of Present Illness Time Seen by Provider: 01/18/22 20:06 Source: patient Exam Limitations: no limitations Patient Subjective Stated Complaint: my face is really swollen from my tooth Triage Nursing Assessment: pt ambulated into ER, spouse at bedside. Pt c/o left sided facial swelling and lip swelling. Pt has an abscessed tooth that we saw her for last night. Pt did not have any swelling evident last night and is significantly swollen tonight. Pt has only taken 1 antibiotic today and it is prescribed tid. Physician History: 31-year-old female with a history of multiple bad dentition with periodontal d isease/caries presented in ER with worsening pain and increasing swelling since yesterday in the left lower jaw. Patient was seen in the ER, currently on amoxicillin and Percocet with no significant relief. No fever chills or difficulty breathing. Pain is moderate to severe sharp shooting/throbbing with minimal movements, palpation. Timing/Duration: gradual onset, days (1) Severity: moderate ENT Location: facial, dental Prearrival Treatment: prescription meds Associated Symptoms: ear pain (L), facial pain/swelling, headache, jaw pain, difficulty swallowing Allergies/Adverse Reactions: pineapple Allergy (Severe, Verified 01/18/22 20:18) latex Allergy (Intermediate, Verified 01/18/22 20:18) Home Medications: Clomipramine HCl 150 mg PO HS 01/17/22 [History] Lisdexamfetamine Dimesylate [Vyvanse] 50 mg PO DAILY 01/17/22 [History] Hx Tetanus, Diphtheria Vaccination/Date Given: Yes Hx Influenza Vaccination/Date Given: No Hx Pneumococcal Vaccination/Date Given: No Immunizations Up to Date: Yes Travel Risk - International Travel Have you traveled outside of the country in past 3 weeks: No - Coronavirus Screening Are you exhibiting any of the following symptoms?: No Close contact with a COVID-19 positive Pt in past 14-21 Days: No - Vaccine Status Have you recieved a Covid-19 vaccination: Yes 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 - Review of Systems Constitutional: No Symptoms Eyes: No Symptoms Ears, Nose, & Throat: Mouth Pain, Mouth Swelling Respiratory: No Symptoms Cardiac: No Symptoms Abdominal/Gastrointestinal: No Symptoms Genitourinary Symptoms: No Symptoms Musculoskeletal: No Symptoms Skin: No Symptoms Neurological: No Symptoms Endocrine: No Symptoms Hematologic/Lymphatic: No Symptoms Immunological/Allergic: No Symptoms - Past Medical History Pertinent Past Medical History: Yes Neurological History: No Pertinent History ENT History: No Pertinent History Cardiac History: No Pertinent History Respiratory History: Asthma Endocrine Medical History: No Pertinent History Musculoskeletal History: No Pertinent History GI Medical History: No Pertinent History History: No Pertinent History Psycho-Social History: Depression Female Reproductive Disorders: No Pertinent History Other Medical History: OCD - Past Surgical History Past Surgical History: Yes Neuro Surgical History: No Pertinent History Cardiac: No Pertinent History Respiratory: No Pertinent History Gastrointestinal: Appendectomy Genitourinary: No Pertinent History Musculoskeletal: No Pertinent History Female Surgical History: Section Other Surgical History: back - Social History Smoking Status: Current every day smoker How long have you smoked: 9 yrs Exposure to second hand smoke: No Drug Use: none Patient Lives Alone: No - Female History Hx Now: No - Nursing Vital Signs Nursing Vital Signs: Initial Vital Signs Temperature 97.1 F 01/18/22 20:10 Pulse Rate 104 H 01/18/22 20:10 Respiratory Rate 18 01/18/22 20:10 Blood Pressure 136/90 01/18/22 20:10 O2 Sat by Pulse Oximetry 99 01/18/22 20:10 Pain Scale Pain Intensity 6 - Physical Exam General Appearance: no apparent distress, alert Eye Exam: bilateral eye: normal inspection Ear Exam: bilateral ear: auricle normal Nasal Exam: normal inspection Throat Exam: pharynx normal, dental tenderness (Periodontal disease, broken teeth with swelling left lower jaw, firm consistency. Negative fluctuation. No swelling floor of mouth.), moist mucus membranes, No pharynx swelling Neck Exam: normal inspection, non-tender, supple, full range of motion Cardiovascular/Respiratory Exam: normal breath sounds, regular rate/rhythm Neurologic Exam: alert, oriented x 3, cooperative, tie carrier II-XII nml as tested Skin Exam: normal color SpO2 Interpretation: normal SpO2: 99 O2 Delivery: Room Air Ordered Tests: Medication Summary Generic Name Dose Route Start Last Admin Trade Name Freq PRN Reason Stop Dose Admin Clindamycin HCl/Dextrose 900 mg in 50 mls @ 100 mls/hr 01/18/22 20:31 Clindamycin-D5w 900 Mg/50 Ml IV 01/18/22 21:00 STAT STA Discontinued Medications Generic Name Dose Route Start Last Admin Trade Name Candidoq PRN Reason Stop Dose Admin Al Hydrox/Mg Hydrox/Simethicone 30 ml 01/18/22 20:31 Mag Hydrox/Al Hydrox/Simeth 30 Ml Udcup PO 01/18/22 20:32 STAT ONE Benzocaine/Butamben/Tetracaine HCl 1 spray 01/18/22 20:31 Tetracaine/Benzocaine/Butamben 1 Delta Delta TP 01/18/22 20:32 ONCE ONE Clindamycin HCl/Dextrose Confirm 01/18/22 20:35 Clindamycin-D5w 900 Mg/50 Ml Administered 01/18/22 20:36 Dose 900 mg in 50 mls @ ud IV .STK-MED ONE Lidocaine HCl 15 ml 01/18/22 20:32 Lidocaine Hcl 2% Viscous 15 Ml Udcup PO 01/18/22 20:33 STAT ONE Morphine Sulfate 4 mg 01/18/22 20:31 Morphine Sulfate 4 Mg/Ml Injection IV 01/18/22 20:32 STAT ONE Morphine Sulfate Confirm 01/18/22 20:35 Morphine Sulfate 4 Mg/Ml Injection Administered 01/18/22 20:36 Dose 4 mg .ROUTE .STK-MED ONE Ondansetron HCl 4 mg 01/18/22 20:31 Ondansetron Hcl 4 Mg/2 Ml Vial IV 01/18/22 20:32 STAT ONE Ondansetron HCl Confirm 01/18/22 20:34 Ondansetron Hcl 4 Mg/2 Ml Vial Administered 01/18/22 20:35 Dose 4 mg .ROUTE .STK-MED ONE - Progress Progress: improved Progress Note: 01/18/22 21:45 She is started on clindamycin, given first dose IV in here along with morphine. Given dental balls for symptomatic relief. Recommended continue with Percocet which she has at home. Outpatient dental follow-up recommended. Discussed signs symptoms of worsening needing return to ER which she seems understanding. Counseled pt/family regarding: diagnosis, need for follow-up - Departure Departure Disposition: Home Clinical Impression: Dental abscess Condition: Stable Critical Care Time: No Referrals: ARCENIO PRADHAN RN EMERGENCY ROOM [Primary Care Provider] - Follow up/PCP as directed (1-2 days for reevaluation) Instructions: Tooth Abscess (DC) Additional Instructions: Take pain medications as needed. Follow-up with your primary dentist for reevaluation. Return to ER for increasing pain swelling, difficulty breathing, fever chills etc. use dental balls for local relief of pain. Prescriptions: Ibuprofen 600 mg PO Q6HPRN PRN 10 Days #20 tablet PRN Reason: Pain clindamycin HCL [Clindamycin HCl] 300 mg PO QID 7 Days #28 cap
[2022-01-18 21:17] VITALS: BP 134/85; PULSE 100; O2SAT 98
== END 2022-01-18 21:31 | disposition home or self-care (01) ==
LOC: ED 20:04
DX: K04.7 Periapical abscess without sinus (principal); K08.89 Other specified disorders of teeth and supporting structures; Z72.0 Tobacco use; Z79.899 Other long term (current) drug therapy; Z79.891 Long term (current) use of opiate analgesic
CPT/HCPCS: 36000; 96372; 96374; 96375; 99284; J2270; J2405; A9270-GY

== ENCOUNTER 2022-03-29 21:17 | Emergency (ER) | payer BC ==
--- NOTE | 2022-03-29 21:19 | ERPHSYRPT ---
- History of Present Illness Time Seen by Provider: 03/29/22 21:19 Source: patient Exam Limitations: no limitations Physician History: This is a 31-year-old white female patient has a history of anxiety and depression. She is a patient of nurse practitioner Ignacio. She is not on any increased dosing of her medication. She denies illicit drug use. This evening around 8-8 30 p.m. prior to arrival, she began noticing palpitations her heart and there was some tightness that was in the central portion of her chest without radiation. She states she has no known cardiac history although looking back at old EKGs she did present with sinus tachycardia in the past. Patient feels that she may be dehydrated and also she may have a urinary tract infection. 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 Patient is under stress but she felt that she was under more stress 2 days ago and not as much today. Timing/Duration: today Quality: tightness Location: substernal, central Chest Pain Radiation: no radiation Severity of Pain-Max: mild Severity of Pain-Current: mild Nitro Today/Relief: no nitro taken today Aspirin Treatment Today: no aspirin today Associated Symptoms: denies symptoms Prior Chest Pain/Cardiac Workup: no prior chest pain, no prior cardiac workup Allergies/Adverse Reactions: pineapple Allergy (Severe, Verified 03/29/22 21:35) latex Allergy (Intermediate, Verified 03/29/22 21:35) Home Medications: Clomipramine HCl 150 mg PO HS 01/17/22 [History] Lisdexamfetamine Dimesylate [Vyvanse] 50 mg PO DAILY 01/17/22 [History] Hx Tetanus, Diphtheria Vaccination/Date Given: Yes Hx Influenza Vaccination/Date Given: No Hx Pneumococcal Vaccination/Date Given: No Travel Risk - International Travel Have you traveled outside of the country in past 3 weeks: No - Coronavirus Screening Are you exhibiting any of the following symptoms?: No Close contact with a COVID-19 positive Pt in past 14-21 Days: No - Vaccine Status Have you recieved a Covid-19 vaccination: 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 - Review of Systems Constitutional: No Symptoms Eyes: No Symptoms Ears, Nose, & Throat: No Symptoms Respiratory: No Symptoms Cardiac: Palpitations Abdominal/Gastrointestinal: No Symptoms Genitourinary Symptoms: No Symptoms Musculoskeletal: No Symptoms Skin: No Symptoms Neurological: No Symptoms Psychological: No Symptoms Endocrine: No Symptoms Hematologic/Lymphatic: No Symptoms Immunological/Allergic: No Symptoms All Other Systems: Reviewed and Negative - Past Medical History Pertinent Past Medical History: Yes Neurological History: No Pertinent History ENT History: No Pertinent History Cardiac History: No Pertinent History Respiratory History: Asthma Endocrine Medical History: No Pertinent History Musculoskeletal History: No Pertinent History GI Medical History: No Pertinent History History: No Pertinent History Psycho-Social History: Depression Female Reproductive Disorders: No Pertinent History Other Medical History: OCD - Past Surgical History Past Surgical History: Yes Neuro Surgical History: No Pertinent History Cardiac: No Pertinent History Respiratory: No Pertinent History Gastrointestinal: Appendectomy Genitourinary: No Pertinent History Musculoskeletal: No Pertinent History Female Surgical History: Section Other Surgical History: back - Social History Smoking Status: Current every day smoker How long have you smoked: 9 yrs Exposure to second hand smoke: No Drug Use: none Patient Lives Alone: No - Nursing Vital Signs Nursing Vital Signs: Initial Vital Signs Temperature 97.8 F 03/29/22 21:19 Pulse Rate 151 H 03/29/22 21:19 Respiratory Rate 18 03/29/22 21:19 Blood Pressure 202/132 03/29/22 21:19 O2 Sat by Pulse Oximetry 100 03/29/22 21:19 Pain Scale Pain Intensity 0 - Physical Exam General Appearance: no apparent distress Eye Exam: PERRL/EOMI Ears, Nose, Throat Exam: normal ENT inspection, moist mucous membranes Neck Exam: normal inspection, non-tender, supple, full range of motion Respiratory Exam: normal breath sounds, lungs clear, airway intact, No chest tenderness, No respiratory distress Cardiovascular Exam: tachycardia Gastrointestinal/Abdomen Exam: soft, normal bowel sounds, No tenderness Pelvic Exam: not done Rectal Exam: not done Back Exam: normal inspection, normal range of motion, No CVA tenderness, No vertebral tenderness Extremity Exam: normal inspection, normal range of motion, pelvis stable Neurologic Exam: alert, oriented x 3, 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, 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, normal mood/affect, nml cerebellar function, nml station & gait, sensation nml Skin Exam: normal color, warm, dry Lymphatic Exam: No adenopathy SpO2 Interpretation: normal O2 Delivery: Room Air - Course Nursing assessment & vital signs reviewed: Yes EKG Interpreted by Me: RATE, Sinus Tach, NORMAL INTERVALS, NORMAL QRS, NORMAL ST-T, Other (Acute ischemic changes on today's EKG) Ordered Tests: Active Orders 24 hr Category Date Time Status EKG-ER Only STAT Care 03/29/22 21:22 Active IV Insertion STAT Care 03/29/22 21:22 Active Pulse Oximetry (ED) STAT Care 03/29/22 21:22 Active CBC W DIFF Stat Lab 03/29/22 21:41 Completed CMP Stat Lab 03/29/22 21:41 Completed D-DIMER QUANTITATIVE Stat Lab 03/29/22 21:41 Completed HCG,QUALITATIVE URINE Stat Lab 03/29/22 22:11 Completed TROPONIN Q4H Lab 03/29/22 21:41 Completed TROPONIN Q4H Lab 03/30/22 01:30 Ordered TROPONIN Q4H Lab 03/30/22 05:30 Ordered UA W/RFX CULTURE Stat Lab 03/29/22 22:11 Completed Urine Triage Profile Stat Lab 03/29/22 22:11 Received Medication Summary Discontinued Medications Generic Name Dose Route Start Last Admin Trade Name Freq PRN Reason Stop Dose Admin Sodium Chloride 1,000 mls @ 999 mls/hr 03/29/22 21:44 03/29/22 21:50 Sodium Chloride 0.9% 1000 Ml IV 03/29/22 22:44 999 mls/hr .Q1H1M STA Administration Sodium Chloride Confirm 03/29/22 21:44 Sodium Chloride 0.9% 1000 Ml Administered 03/29/22 21:45 Dose 1,000 mls @ ud .ROUTE .STK-MED ONE Lorazepam 1 mg 03/29/22 21:44 03/29/22 21:51 Lorazepam 2 Mg/1 Ml 2 Mg Vial IV 03/29/22 21:45 1 mg STAT ONE Administration Lorazepam Confirm 03/29/22 21:51 Lorazepam 2 Mg/1 Ml 2 Mg Vial Administered 03/29/22 21:52 Dose 2 mg .ROUTE .STK-MED ONE Metoprolol Tartrate 5 mg 03/29/22 21:44 03/29/22 21:50 Metoprolol Tartrate 5 Mg/5 Ml Vial IV 03/29/22 21:45 2.5 mg STAT ONE Administration Metoprolol Tartrate Confirm 03/29/22 21:44 Metoprolol Tartrate 5 Mg/5 Ml Vial Administered 03/29/22 21:45 Dose 5 mg IV .STK-MED ONE Lab/Rad Data: Laboratory Result Diagrams 03/29/22 21:41 03/29/22 21:41 Laboratory Results 03/29/22 03/29/22 03/29/22 Range/Units 22:11 22:11 21:41 WBC (4.0-10.5) x10^3/uL RBC (4.1-5.4) x10^6/uL Hgb (12.0-16.0) g/dL Hct (35-47) % MCV (78-100) fL MCH (26-32) pg MCHC (32-36) g/dL RDW (11.5-14.0) % Plt Count (150-450) x10^3/uL MPV (7.5-11.0) fL Gran % (36.0-66.0) % Immature Gran % (Auto) (0.00-0.4) % Nucleat RBC Rel Count (0.00-0.1) % Eos # (Auto) (0-0.5) x10^3/uL Immature Gran # (Auto) (0.00-0.03) x10^3u/L Absolute Lymphs (auto) (1.0-4.6) x10^3/uL Absolute Monos (auto) (0.0-1.3) x10^3/uL Absolute Nucleated RBC (0.00-0.01) x10^3u/L Lymphocytes % (24.0-44.0) % Monocytes % (0.0-12.0) % Eosinophils % (0.00-5.0) % Basophils % (0.0-0.4) % Absolute Granulocytes (1.4-6.9) x10^3/uL Basophils # (0-0.4) x10^3/uL D-Dimer (0.0-0.50) mg/L Sodium (137-145) mmol/L Potassium (3.5-5.1) mmol/L Chloride (98-107) mmol/L Carbon Dioxide (22-30) mmol/L Anion Gap (5-15) MEQ/L BUN (7-17) mg/dL Creatinine (0.52-1.04) mg/dL Estimated GFR ML/MIN Glucose (74-106) mg/dL Calcium (8.4-10.2) mg/dL Total Bilirubin (0.2-1.3) mg/dL AST (14-36) U/L ALT (0-35) U/L Alkaline Phosphatase (38-126) U/L Troponin I < 0.012 (0.000-0.034) ng/mL Serum Total Protein (6.3-8.2) g/dL Albumin (3.5-5.0) g/dL Urinalys Dipstick Clnc MAIN LAB Urine Color LT.YELLOW (YELLOW) Urine Appearance CLEAR (CLEAR) Urine pH 6.0 (5-6) Ur Specific [place] <=1.005 A (1.005-1.025) POC Urine Protein Conf NEGATIVE (Negative) Urine Ketones NEGATIVE (NEGATIVE) Urine Nitrite NEGATIVE (NEGATIVE) Urine Bilirubin NEGATIVE (NEGATIVE) Urine Urobilinogen 0.2 (0-1) mg/dL Urine Leukocytes NEGATIVE (NEGATIVE) Urine WBC (Auto) 0-2 (0-5) /HPF Urine RBC (Auto) NONE (0-2) /HPF U Epithel Cells (Auto) RARE (FEW) /HPF Urine Bacteria (Auto) NONE (NEGATIVE) /HPF Urine RBC MODERATE A (0-5) Joseph/ul Ur Culture Indicated? NO Urine Glucose NEGATIVE (NEGATIVE) mg/dL Urine HCG, Qual NEGATIVE (Negative) 03/29/22 03/29/22 03/29/22 Range/Units 21:41 21:41 21:41 WBC 8.4 (4.0-10.5) x10^3/uL RBC 4.33 (4.1-5.4) x10^6/uL Hgb 11.5 L (12.0-16.0) g/dL Hct 37.2 (35-47) % MCV 85.9 (78-100) fL MCH 26.6 (26-32) pg MCHC 30.9 L (32-36) g/dL RDW 15.7 H (11.5-14.0) % Plt Count 382 (150-450) x10^3/uL MPV 8.3 (7.5-11.0) fL Gran % 64.2 (36.0-66.0) % Immature Gran % (Auto) 0.4 (0.00-0.4) % Nucleat RBC Rel Count 0.0 (0.00-0.1) % Eos # (Auto) 0.53 H (0-0.5) x10^3/uL Immature Gran # (Auto) 0.03 (0.00-0.03) x10^3u/L Absolute Lymphs (auto) 1.86 (1.0-4.6) x10^3/uL Absolute Monos (auto) 0.53 (0.0-1.3) x10^3/uL Absolute Nucleated RBC 0.00 (0.00-0.01) x10^3u/L Lymphocytes % 22.1 L (24.0-44.0) % Monocytes % 6.3 (0.0-12.0) % Eosinophils % 6.3 H (0.00-5.0) % Basophils % 0.7 (0.0-0.4) % Absolute Granulocytes 5.40 (1.4-6.9) x10^3/uL Basophils # 0.06 (0-0.4) x10^3/uL D-Dimer 0.28 (0.0-0.50) mg/L Sodium 135 L (137-145) mmol/L Potassium 3.1 L (3.5-5.1) mmol/L Chloride 102 (98-107) mmol/L Carbon Dioxide 23 (22-30) mmol/L Anion Gap 12.6 (5-15) MEQ/L BUN 3 L (7-17) mg/dL Creatinine 0.68 (0.52-1.04) mg/dL Estimated GFR > 60.0 ML/MIN Glucose 98 (74-106) mg/dL Calcium 8.6 (8.4-10.2) mg/dL Total Bilirubin 0.20 (0.2-1.3) mg/dL AST 21 (14-36) U/L ALT 19 (0-35) U/L Alkaline Phosphatase 100 (38-126) U/L Troponin I (0.000-0.034) ng/mL Serum Total Protein 6.8 (6.3-8.2) g/dL Albumin 4.1 (3.5-5.0) g/dL Urinalys Dipstick Clnc Urine Color (YELLOW) Urine Appearance (CLEAR) Urine pH (5-6) Ur Specific [place] (1.005-1.025) POC Urine Protein Conf (Negative) Urine Ketones (NEGATIVE) Urine Nitrite (NEGATIVE) Urine Bilirubin (NEGATIVE) Urine Urobilinogen (0-1) mg/dL Urine Leukocytes (NEGATIVE) Urine WBC (Auto) (0-5) /HPF Urine RBC (Auto) (0-2) /HPF U Epithel Cells (Auto) (FEW) /HPF Urine Bacteria (Auto) (NEGATIVE) /HPF Urine RBC (0-5) Joseph/ul Ur Culture Indicated? Urine Glucose (NEGATIVE) mg/dL Urine HCG, Qual (Negative) - Departure Departure Disposition: Home Clinical Impression: Sinus tachycardia, Anxiety, Hypokalemia Condition: Stable Critical Care Time: No Referrals: ARCENIO PRADHAN NP [Primary Care Provider] - Follow up/PCP as directed Additional Instructions: Take your potassium as prescribed. Wear your Holter monitor as instructed. Follow-up with your primary care provider for further evaluation management.
[2022-03-29 21:43] LABS: Basophil (Absolute #) 0.06 x10^3/uL (0-0.4); Eosinophil % 6.3 % (0.00-5.0); Eosinophil (Absolute #) 0.53 x10^3/uL (0-0.5); Hematocrit 37.2 % (35-47); Hemoglobin 11.5 g/dL (12.0-16.0); Lymphocyte (Absolute #) 1.86 x10^3/uL (1.0-4.6); Lymphocytes % 22.1 % (24.0-44.0); Mean Cell Volume 85.9 fL (78-100); Mean Corpuscular Hemoglobin 26.6 pg (26-32); Mean Corpuscular Hgb Concent. 30.9 g/dL (32-36); Mean Platelet Volume 8.3 fL (7.5-11.0); Monocyte (Absolute #) 0.53 x10^3/uL (0.0-1.3); Monocytes % 6.3 % (0.0-12.0); Neutrophil % 64.2 % (36.0-66.0); Platelet Count 382 x10^3/uL (150-450); Red Blood Count 4.33 x10^6/uL (4.1-5.4); Red Cell Distribution Width 15.7 % (11.5-14.0); White Blood Count 8.4 x10^3/uL (4.0-10.5)
[2022-03-29] MEDS ORDERED: Sodium Chloride 0.9% 1000 ML 1,000 ML ONE (21:44)
[2022-03-29] MEDS ORDERED: LOPRESSOR INJECTION IV ONE ×2 (21:44)
[2022-03-29] MEDS ORDERED: Ativan 2 MG/1 ML VIAL IV ONE (21:44)
[2022-03-29] MEDS ORDERED: Sodium Chloride 0.9% 1000 ML 1,000 ML IV STA (21:44)
[2022-03-29] MEDS ORDERED: Ativan 2 MG/1 ML VIAL ONE (21:51)
[2022-03-29 22:00] LABS: ALBUMIN 4.1 g/dL (3.5-5.0); ALKALINE PHOSPHATASE 100 U/L (38-126); ANION GAP 12.6 MEQ/L (5-15); BLOOD UREA NITROGEN 3 mg/dL (7-17); CHLORIDE 102 mmol/L (98-107); Calcium 8.6 mg/dL (8.4-10.2); Carbon Dioxide 23 mmol/L (22-30); Creatinine 1 0.68 mg/dL (0.52-1.04); EST GLOMERULAR FILTRATION RATE > 60.0 ML/MIN; Glucose 98 mg/dL (74-106); Potassium 3.1 mmol/L (3.5-5.1); SGOT/AST 21 U/L (14-36); SGPT/ALT 19 U/L (0-35); SODIUM 135 mmol/L (137-145); Total Protein 6.8 g/dL (6.3-8.2)
[2022-03-29 22:35] VITALS: O2SAT 99
[2022-03-29 22:52] LABS: Appearance CLEAR (CLEAR); Bilirubin NEGATIVE (NEGATIVE); Dipstick done @ ? MAIN LAB; Glucose NEGATIVE (NEGATIVE); Ketones NEGATIVE (NEGATIVE); Nitrite NEGATIVE (NEGATIVE); Protein,Urine Dip NEGATIVE (Negative); RBC MODERATE Ery/ul (0-5); Specific Gravity <=1.005 (1.005-1.025); Urobilinogen 0.2 mg/dL (0-1)
[2022-03-29 23:05] LABS: Epithelial Cells RARE /HPF (FEW); WBC 0-2 /HPF (0-5)
[2022-03-29 23:06] LABS: Urine Cultured Indicated? NO
[2022-03-29] MEDS ORDERED: Klor Con PO ONE ×2 (23:08→23:20)
[2022-03-29 23:09] LABS: Amphetamine,Urine NEGATIVE (NEGATIVE); Barbiturate,Urine NEGATIVE (NEGATIVE); Benzodiazepine,Urine NEGATIVE (NEGATIVE); Cocaine,Urine NEGATIVE (NEGATIVE); Methadone,Urine NEGATIVE (NEGATIVE); Opiate,Urine NEGATIVE (NEGATIVE); PCP,Urine NEGATIVE (NEGATIVE); THC,Urine NEGATIVE (NEGATIVE)
[2022-03-29 23:37] VITALS: BP 117/88; PULSE 105
== END 2022-03-29 23:35 | disposition home or self-care (01) ==
LOC: ED 21:17
DX: R00.0 Tachycardia, unspecified (principal); F41.9 Anxiety disorder, unspecified; E87.6 Hypokalemia; Z79.899 Other long term (current) drug therapy; Z72.0 Tobacco use
CPT/HCPCS: 36000; 36415; 80053; 80307; 81015; 81025; 84484; 85025; 85379; 93005; 93225; 94760; 96374; 96375; 99284; 99291; J2060; A9270-GY

== ENCOUNTER 2022-10-08 06:33 | Emergency (ER) | payer BC ==
[2022-10-08 06:37] VITALS: O2SAT 100
[2022-10-08] MEDS ORDERED: Sodium Chloride 0.9% 1000 ML 1,000 ML IV STA (07:01)
[2022-10-08] MEDS ORDERED: Sodium Chloride 0.9% 1000 ML 1,000 ML ONE (07:02)
[2022-10-08 07:05] LABS: Absolute Neutrophil Ct (ANC) 3.61 x10^3/uL (1.4-6.9); BASOPHIL % 1.2 % (0.0-0.4); Basophil (Absolute #) 0.07 x10^3/uL (0-0.4); Eosinophil % 2.8 % (0.00-5.0); Eosinophil (Absolute #) 0.16 x10^3/uL (0-0.5); Hematocrit 34.3 % (35-47); Hemoglobin 10.2 g/dL (12.0-16.0); IMMATURE GRAN # 0.02 x10^3u/L (0.00-0.03); IMMATURE GRAN % 0.4 % (0.00-0.4); Lymphocyte (Absolute #) 1.33 x10^3/uL (1.0-4.6); Lymphocytes % 23.5 % (24.0-44.0); Mean Cell Volume 77.8 fL (78-100); Mean Corpuscular Hemoglobin 23.1 pg (26-32); Mean Corpuscular Hgb Concent. 29.7 g/dL (32-36); Mean Platelet Volume 8.6 fL (7.5-11.0); Monocyte (Absolute #) 0.46 x10^3/uL (0.0-1.3); Monocytes % 8.1 % (0.0-12.0); Platelet Count 403 x10^3/uL (150-450); Red Blood Count 4.41 x10^6/uL (4.1-5.4); Red Cell Distribution Width 16.7 % (11.5-14.0); White Blood Count 5.7 x10^3/uL (4.0-10.5)
[2022-10-08 08:10] LABS: ALBUMIN 4.2 g/dL (3.5-5.0); ALKALINE PHOSPHATASE 144 U/L (38-126); ANION GAP 13.8 MEQ/L (5-15); BLOOD UREA NITROGEN 7 mg/dL (7-17); CHLORIDE 99 mmol/L (98-107); Calcium 8.9 mg/dL (8.4-10.2); Carbon Dioxide 26 mmol/L (22-30); Creatinine 1 0.65 mg/dL (0.52-1.04); EST GLOMERULAR FILTRATION RATE > 60.0 ML/MIN; Glucose 107 mg/dL (74-106); Potassium 4.1 mmol/L (3.5-5.1); SGOT/AST 23 U/L (14-36); SGPT/ALT 16 U/L (0-35); SODIUM 135 mmol/L (137-145); Total Protein 7.5 g/dL (6.3-8.2)
[2022-10-08 08:24] LABS: NT PRO BNPII 37.6 pg/mL (<300); TROPONIN < 0.012 ng/mL (0.000-0.034)
[2022-10-08 08:27] LABS: HCG URINE TEST NEGATIVE (NEGATIVE)
[2022-10-08 08:30] LABS: Appearance Clear (Clear); Bacteria None Seen /HPF (None Seen); Bilirubin Negative (Negative); Blood Negative (Negative); Epithelial Cells Few /HPF (None Seen); Glucose, Urine Negative (Negative); Hyaline Casts NONE SEEN /LPF (0-2); Ketones Negative (Negative); Leukocyte Esterase Large (Negative); Nitrite Negative (Negative); Protein,Urine Dip Negative (Negative); RBC 0-2 /HPF (0-5); Specific Gravity <=1.005 (1.005-1.030); Urobilinogen 0.2 mg/dL (0.2); WBC 21-50 /HPF (0-5)
[2022-10-08 08:31] LABS: ADD URINE CULTURE? YES (NO)
--- NOTE | 2022-10-08 08:46 | ERPHSYRPT ---
- History of Present Illness Time Seen by Provider: 10/08/22 07:06 Historian: patient, family Exam Limitations: no limitations Patient Subjective Stated Complaint: chest pain Triage Nursing Assessment: pt ambulated into ER without diff. Pt alert and oriented x4, pleasant and cooperative. Pt states, "I was sitting on the side of the bed getting up to get ready for work and my chest started hurting. Last time this happened, my potassium was low". Lungs clear, heart tones reg, HR tachy. Pt c/o midsternal upper chest pain. Pt denies any nausea or vomiting. Physician History: 32 years old female with history of anxiety presented in the ER with chief complaint of palpitations and chest pain. Patient reports she woke up, was sitting on side of bed, started to have palpitations and chest pain, it made her really anxious, chest pain was moderate intensity sharp in the substernal area, nonradiating, without any significant aggravating or relieving factors. Patient heart rate was in 150s/160s on presentation and quickly improved to low 100s without any medications. EKG did not show any acute ST elevations. Currently during my evaluation patient is chest pain-free and feeling much better. Patient does report having decreased oral intake for the last few days. Denies any fever or chills. Timing/Duration: today, hour(s) (1), constant, sudden, improved Activities at Onset: rest Quality: sharpness Location: substernal Chest Pain Radiation: no radiation Severity of Pain-Max: moderate Severity of Pain-Current: none Modifying Factors: Improves With: nothing Prior Chest Pain/Cardiac Workup: no prior cardiac workup Nitro Today/Relief: no nitro taken today Aspirin Treatment Today: no aspirin today Allergies/Adverse Reactions: pineapple Allergy (Severe, Verified 10/08/22 06:46) latex Allergy (Intermediate, Verified 10/08/22 06:46) Home Medications: Clomipramine HCl 200 mg PO HS 01/17/22 [History] Aripiprazole [Abilify] 7.5 mg PO HS 10/08/22 [History] Hx Tetanus, Diphtheria Vaccination/Date Given: Yes Hx Influenza Vaccination/Date Given: No Hx Pneumococcal Vaccination/Date Given: No Immunizations Up to Date: Yes Travel Risk - International Travel Have you traveled outside of the country in past 3 weeks: No - Coronavirus Screening Are you exhibiting any of the following symptoms?: No Close contact with a COVID-19 positive Pt in past 14-21 Days: No - Vaccine Status Have you recieved a Covid-19 vaccination: Yes 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 - Review of Systems Constitutional: Fatigue, Weakness Eyes: No Symptoms Ears, Nose, & Throat: No Symptoms Respiratory: No Symptoms Cardiac: Chest Pain, Palpitations Abdominal/Gastrointestinal: No Symptoms Genitourinary Symptoms: No Symptoms Musculoskeletal: No Symptoms Neurological: No Symptoms Psychological: Anxiety Endocrine: No Symptoms Hematologic/Lymphatic: No Symptoms Immunological/Allergic: No Symptoms - Past Medical History Pertinent Past Medical History: Yes Neurological History: No Pertinent History ENT History: No Pertinent History Cardiac History: No Pertinent History Respiratory History: Asthma Endocrine Medical History: No Pertinent History Musculoskeletal History: No Pertinent History GI Medical History: No Pertinent History History: No Pertinent History Psycho-Social History: Depression Female Reproductive Disorders: No Pertinent History Other Medical History: OCD, anemia - Past Surgical History Past Surgical History: Yes Neuro Surgical History: No Pertinent History Cardiac: No Pertinent History Respiratory: No Pertinent History Gastrointestinal: Appendectomy Genitourinary: No Pertinent History Musculoskeletal: No Pertinent History Female Surgical History: Section Other Surgical History: back - Social History Smoking Status: Current every day smoker How long have you smoked: 10 years Exposure to second hand smoke: Yes Drug Use: none Patient Lives Alone: No - Female History Hx Now: No - Nursing Vital Signs Nursing Vital Signs: Initial Vital Signs Pulse Rate 109 H 10/08/22 06:32 Respiratory Rate 17 10/08/22 06:32 Blood Pressure 159/110 10/08/22 06:32 O2 Sat by Pulse Oximetry 100 10/08/22 06:32 Pain Scale Pain Intensity 0 - Physical Exam General Appearance: no apparent distress, alert Eye Exam: PERRL/EOMI, eyes nml inspection Ears, Nose, Throat Exam: normal ENT inspection, pharynx normal Neck Exam: normal inspection, supple, full range of motion Respiratory Exam: normal breath sounds, lungs clear Cardiovascular Exam: normal heart sounds, tachycardia Gastrointestinal/Abdomen Exam: soft, normal bowel sounds, No tenderness Extremity Exam: normal inspection, normal range of motion Neurologic Exam: alert, oriented x 3, cooperative, friction saw operator II-XII nml as tested Skin Exam: normal color SpO2 Interpretation: normal SpO2: 100 O2 Delivery: Room Air - Course EKG Interpreted by Me: RATE ([id number]), Sinus Tach, NORMAL AXIS, Non-specific ST Changes (Second EKG time 6:49 AM. Rate 105, sinus tachycardia, normal axis, normal intervals, normal QRS, no ST elevations.) Ordered Tests: Active Orders 24 hr Category Date Time Status Photographic Developer And Printer STAT Care 10/08/22 06:51 Completed EKG-ER Only STAT Care 10/08/22 06:50 Completed IV Insertion STAT Care 10/08/22 06:50 Completed Pulse Oximetry (ED) STAT Care 10/08/22 06:50 Completed CHEST 2 VIEWS (PA AND LAT) Routine Exams 10/08/22 07:34 Completed CBC W DIFF Stat Lab 10/08/22 06:50 Completed CMP Stat Lab 10/08/22 06:50 Completed CULTURE,URINE Stat Lab 10/08/22 07:51 Received D-DIMER QUANTITATIVE Stat Lab 10/08/22 06:50 Completed HCG QUALITATIVE, URINE Stat Lab 10/08/22 07:51 Completed NT PRO BNPII Stat Lab 10/08/22 06:50 Completed TROPONIN Q4H Lab 10/08/22 06:50 Completed TROPONIN Q4H Lab 10/08/22 10:21 Completed TSH [TSH, 3RD Generation] Stat Lab 10/08/22 06:50 Completed UA W/RFX UR CULTURE Stat Lab 10/08/22 07:51 Completed Medication Summary Discontinued Medications Generic Name Dose Route Start Last Admin Trade Name Freq PRN Reason Stop Dose Admin Sodium Chloride 1,000 mls @ 999 mls/hr 10/08/22 07:01 10/08/22 08:10 Sodium Chloride 0.9% 1000 Ml IV 10/08/22 08:01 Infused .Q1H1M STA Infusion Sodium Chloride Confirm 10/08/22 07:02 Sodium Chloride 0.9% 1000 Ml Administered 10/08/22 07:03 Dose 1,000 mls @ ud .ROUTE .[facility] Lab/Rad Data: Laboratory Result Diagrams 10/08/22 06:50 10/08/22 06:50 Laboratory Results 10/08/22 10/08/22 10/08/22 Range/Units 10:21 07:51 07:51 WBC (4.0-10.5) x10^3/uL RBC (4.1-5.4) x10^6/uL Hgb (12.0-16.0) g/dL Hct (35-47) % MCV (78-100) fL MCH (26-32) pg MCHC (32-36) g/dL RDW (11.5-14.0) % Plt Count (150-450) x10^3/uL MPV (7.5-11.0) fL Gran % (36.0-66.0) % Immature Gran % (Auto) (0.00-0.4) % Nucleat RBC Rel Count (0.00-0.1) % Eos # (Auto) (0-0.5) x10^3/uL Immature Gran # (Auto) (0.00-0.03) x10^3u/L Absolute Lymphs (auto) (1.0-4.6) x10^3/uL Absolute Monos (auto) (0.0-1.3) x10^3/uL Absolute Nucleated RBC (0.00-0.01) x10^3u/L Lymphocytes % (24.0-44.0) % Monocytes % (0.0-12.0) % Eosinophils % (0.00-5.0) % Basophils % (0.0-0.4) % Absolute Granulocytes (1.4-6.9) x10^3/uL Basophils # (0-0.4) x10^3/uL D-Dimer (0.0-0.50) mg/L Sodium (137-145) mmol/L Potassium (3.5-5.1) mmol/L Chloride (98-107) mmol/L Carbon Dioxide (22-30) mmol/L Anion Gap (5-15) MEQ/L BUN (7-17) mg/dL Creatinine (0.52-1.04) mg/dL Estimated GFR ML/MIN Glucose (74-106) mg/dL Calcium (8.4-10.2) mg/dL Total Bilirubin (0.2-1.3) mg/dL AST (14-36) U/L ALT (0-35) U/L Alkaline Phosphatase (38-126) U/L Troponin I < 0.012 (0.000-0.034) ng/mL NT-Pro-B Natriuret Pep (<300) pg/mL Serum Total Protein (6.3-8.2) g/dL Albumin (3.5-5.0) g/dL TSH 3rd Generation (0.47-4.68) mIU/L Urine Color Yellow (Yellow) Urine Appearance Clear (Clear) Urine pH 7.0 (4.6-8.0) Ur Specific [place] <=1.005 (1.005-1.030) Urine Protein Negative (Negative) Urine Glucose (UA) Negative (Negative) mg/dL Urine Ketones Negative (Negative) Urine Blood Negative (Negative) Urine Nitrite Negative (Negative) Urine Bilirubin Negative (Negative) Urine Urobilinogen 0.2 (0.2) mg/dL Ur Leukocyte Esterase Large A (Negative) U Hyaline Cast (Auto) NONE SEEN (0-2) /LPF Urine Microscopic RBC 0-2 (0-5) /HPF Urine Microscopic WBC 21-50 A (0-5) /HPF Ur Epithelial Cells Few (None Seen) /HPF Urine Bacteria None Seen (None Seen) /HPF Urine Culture Reflexed YES (NO) Urine HCG, Qual NEGATIVE (NEGATIVE) 10/08/22 10/08/22 10/08/22 Range/Units 06:50 06:50 06:50 WBC (4.0-10.5) x10^3/uL RBC (4.1-5.4) x10^6/uL Hgb (12.0-16.0) g/dL Hct (35-47) % MCV (78-100) fL MCH (26-32) pg MCHC (32-36) g/dL RDW (11.5-14.0) % Plt Count (150-450) x10^3/uL MPV (7.5-11.0) fL Gran % (36.0-66.0) % Immature Gran % (Auto) (0.00-0.4) % Nucleat RBC Rel Count (0.00-0.1) % Eos # (Auto) (0-0.5) x10^3/uL Immature Gran # (Auto) (0.00-0.03) x10^3u/L Absolute Lymphs (auto) (1.0-4.6) x10^3/uL Absolute Monos (auto) (0.0-1.3) x10^3/uL Absolute Nucleated RBC (0.00-0.01) x10^3u/L Lymphocytes % (24.0-44.0) % Monocytes % (0.0-12.0) % Eosinophils % (0.00-5.0) % Basophils % (0.0-0.4) % Absolute Granulocytes (1.4-6.9) x10^3/uL Basophils # (0-0.4) x10^3/uL D-Dimer 0.27 (0.0-0.50) mg/L Sodium (137-145) mmol/L Potassium (3.5-5.1) mmol/L Chloride (98-107) mmol/L Carbon Dioxide (22-30) mmol/L Anion Gap (5-15) MEQ/L BUN (7-17) mg/dL Creatinine (0.52-1.04) mg/dL Estimated GFR ML/MIN Glucose (74-106) mg/dL Calcium (8.4-10.2) mg/dL Total Bilirubin (0.2-1.3) mg/dL AST (14-36) U/L ALT (0-35) U/L Alkaline Phosphatase (38-126) U/L Troponin I < 0.012 (0.000-0.034) ng/mL NT-Pro-B Natriuret Pep 37.6 (<300) pg/mL Serum Total Protein (6.3-8.2) g/dL Albumin (3.5-5.0) g/dL TSH 3rd Generation 1.120 (0.47-4.68) mIU/L Urine Color (Yellow) Urine Appearance (Clear) Urine pH (4.6-8.0) Ur Specific [place] (1.005-1.030) Urine Protein (Negative) Urine Glucose (UA) (Negative) mg/dL Urine Ketones (Negative) Urine Blood (Negative) Urine Nitrite (Negative) Urine Bilirubin (Negative) Urine Urobilinogen (0.2) mg/dL Ur Leukocyte Esterase (Negative) U Hyaline Cast (Auto) (0-2) /LPF Urine Microscopic RBC (0-5) /HPF Urine Microscopic WBC (0-5) /HPF Ur Epithelial Cells (None Seen) /HPF Urine Bacteria (None Seen) /HPF Urine Culture Reflexed (NO) Urine HCG, Qual (NEGATIVE) 10/08/22 10/08/22 Range/Units 06:50 06:50 WBC 5.7 (4.0-10.5) x10^3/uL RBC 4.41 (4.1-5.4) x10^6/uL Hgb 10.2 L (12.0-16.0) g/dL Hct 34.3 L (35-47) % MCV 77.8 L (78-100) fL MCH 23.1 L (26-32) pg MCHC 29.7 L (32-36) g/dL RDW 16.7 H (11.5-14.0) % Plt Count 403 (150-450) x10^3/uL MPV 8.6 (7.5-11.0) fL Gran % 64.0 (36.0-66.0) % Immature Gran % (Auto) 0.4 (0.00-0.4) % Nucleat RBC Rel Count 0.0 (0.00-0.1) % Eos # (Auto) 0.16 (0-0.5) x10^3/uL Immature Gran # (Auto) 0.02 (0.00-0.03) x10^3u/L Absolute Lymphs (auto) 1.33 (1.0-4.6) x10^3/uL Absolute Monos (auto) 0.46 (0.0-1.3) x10^3/uL Absolute Nucleated RBC 0.00 (0.00-0.01) x10^3u/L Lymphocytes % 23.5 L (24.0-44.0) % Monocytes % 8.1 (0.0-12.0) % Eosinophils % 2.8 (0.00-5.0) % Basophils % 1.2 (0.0-0.4) % Absolute Granulocytes 3.61 (1.4-6.9) x10^3/uL Basophils # 0.07 (0-0.4) x10^3/uL D-Dimer (0.0-0.50) mg/L Sodium 135 L (137-145) mmol/L Potassium 4.1 (3.5-5.1) mmol/L Chloride 99 (98-107) mmol/L Carbon Dioxide 26 (22-30) mmol/L Anion Gap 13.8 (5-15) MEQ/L BUN 7 (7-17) mg/dL Creatinine 0.65 (0.52-1.04) mg/dL Estimated GFR > 60.0 ML/MIN Glucose 107 H (74-106) mg/dL Calcium 8.9 (8.4-10.2) mg/dL Total Bilirubin 0.40 (0.2-1.3) mg/dL AST 23 (14-36) U/L ALT 16 (0-35) U/L Alkaline Phosphatase 144 H (38-126) U/L Troponin I (0.000-0.034) ng/mL NT-Pro-B Natriuret Pep (<300) pg/mL Serum Total Protein 7.5 (6.3-8.2) g/dL Albumin 4.2 (3.5-5.0) g/dL TSH 3rd Generation (0.47-4.68) mIU/L Urine Color (Yellow) Urine Appearance (Clear) Urine pH (4.6-8.0) Ur Specific [place] (1.005-1.030) Urine Protein (Negative) Urine Glucose (UA) (Negative) mg/dL Urine Ketones (Negative) Urine Blood (Negative) Urine Nitrite (Negative) Urine Bilirubin (Negative) Urine Urobilinogen (0.2) mg/dL Ur Leukocyte Esterase (Negative) U Hyaline Cast (Auto) (0-2) /LPF Urine Microscopic RBC (0-5) /HPF Urine Microscopic WBC (0-5) /HPF Ur Epithelial Cells (None Seen) /HPF Urine Bacteria (None Seen) /HPF Urine Culture Reflexed (NO) Urine HCG, Qual (NEGATIVE) - Progress Progress: improved, re-examined Air Movement: good Progress Note: 10/08/22 09:51 32 years old female with history of anxiety presented in the ER with chief complaint of palpitations and chest pain. Patient reports she woke up, was sitting on side of bed, started to have palpitations and chest pain, it made her really anxious, chest pain was moderate intensity sharp in the substernal area, nonradiating, without any significant aggravating or relieving factors. Patient heart rate was in 150s/160s on presentation and quickly improved to low 100s without any medications. EKG did not show any acute ST elevations. Currently during my evaluation patient is chest pain-free and feeling much better. Patient does report having decreased oral intake for the last few days. Denies any fever or chills. She is given fluids, declined pain medications as she is pain-free during my evaluation. Chest x-ray negative for any acute cardiopulmonary findings. Negative troponin and D-dimers. Fairly unremarkable chemistries. Does have some UTI, will treat with Keflex. Patient is low heart score, do not think she needs further evaluation in the hospital, recommended outpatient follow-up. Discussed signs symptoms of worsening needing return to ER which she seems understanding. Stable for discharge. Counseled pt/family regarding: lab results, diagnosis, need for follow-up, rad results, smoking cessation Medical Desision Making - Independent Historian Additional History obtained from: Spouse - Diagnostic Testing Radiological Interpretation: Reviewed by me - Departure Departure Disposition: Home Clinical Impression: Atypical chest pain, Anxiety, Palpitations, UTI (urinary tract infection) Condition: Stable Critical Care Time: No Referrals: LENORA JETT NP [Primary Care Provider] - Follow up with PCP 1 day [facility] MCADAMS [CONSULTING PHYSICIAN] - Follow up/PCP as directed (Call for appointment for reevaluation.) Instructions: Angina (DC), Chest Pain (DC) Additional Instructions: Take Tylenol as needed, drink plenty of fluids to keep yourself well-hydrated. Continue with your anxiety medications. Follow-up with primary care and card iology for reevaluation. Return to ER for any worsening. Prescriptions: Cephalexin Mh 500 mg [Keflex 500 mg] 500 mg PO TID #21 cap
--- NOTE | 2022-10-08 08:49 | XRAY ---
Indication: Short of breath and chest pain. Comparison: September 02, 2018 PA/lateral chest again demonstrates normal heart, lungs, and bony thorax.
[2022-10-08 11:14] VITALS: BP 121/85; PULSE 121
== END 2022-10-08 11:14 | disposition home or self-care (01) ==
LOC: ED 06:33
DX: F41.9 Anxiety disorder, unspecified (principal); R07.89 Other chest pain; R00.2 Palpitations; N39.0 Urinary tract infection, site not specified; Z79.899 Other long term (current) drug therapy; Z72.0 Tobacco use
CPT/HCPCS: 36000; 36415; 71046; 80053; 81001; 81025; 83880; 84443; 84484; 85025; 85379; 87086; 93005; 93041; 94760; 96360; 99284; 99291

== ENCOUNTER 2023-06-04 19:17 | Emergency (ER) | payer BC ==
[2023-06-04] MEDS ORDERED: Sodium Chloride 0.9% 1000 ML 1,000 ML ONE (19:28)
[2023-06-04] MEDS ORDERED: Adenocard IV 6 MG/2 ML IV ONE (19:28)
[2023-06-04] MEDS: Sodium Chloride 0.9% 1000 ML 1,000 ML IV STA (19:30)
[2023-06-04] MEDS: Adenocard IV 6 MG/2 ML IV ONE (19:31)
[2023-06-04 19:34] VITALS: TEMP 98.2
[2023-06-04 20:08] LABS: Basophil (Absolute #) 0.08 x10^3/uL (0-0.4); Eosinophil % 2.6 % (0.00-5.0); Eosinophil (Absolute #) 0.21 x10^3/uL (0-0.5); Hematocrit 43.3 % (35-47); Hemoglobin 14.1 g/dL (12.0-16.0); IMMATURE GRAN # 0.02 x10^3u/L (0.00-0.03); IMMATURE GRAN % 0.3 % (0.00-0.4); Lymphocyte (Absolute #) 1.96 x10^3/uL (1.0-4.6); Lymphocytes % 24.5 % (24.0-44.0); Mean Cell Volume 86.6 fL (78-100); Mean Corpuscular Hemoglobin 28.2 pg (26-32); Mean Corpuscular Hgb Concent. 32.6 g/dL (32-36); Mean Platelet Volume 9.4 fL (7.5-11.0); Monocyte (Absolute #) 0.62 x10^3/uL (0.0-1.3); Monocytes % 7.8 % (0.0-12.0); Neutrophil % 63.8 % (36.0-66.0); Platelet Count 440 x10^3/uL (150-450); Red Cell Distribution Width 14.3 % (11.5-14.0)
[2023-06-04 20:25] LABS: ALBUMIN 4.9 g/dL (3.5-5.0); ANION GAP 12.3 MEQ/L (5-15); BILIRUBIN,TOTAL 0.3 mg/dL (0.2-1.3); Calcium 9.7 mg/dL (8.4-10.2); Creatinine 1 0.76 mg/dL (0.52-1.04); EST GLOMERULAR FILTRATION RATE 106.7 ML/MIN; MAGNESIUM 2.2 mg/dL (1.6-2.3); Potassium 3.5 mmol/L (3.5-5.1); Total Protein 8.1 g/dL (6.3-8.2)
[2023-06-04 20:27] LABS: INR 0.97 (0.8-3.0); PROTIME 10.6 SECONDS (9.4-12.5)
--- NOTE | 2023-06-04 20:37 | ERPHSYRPT ---
- History of Present Illness Time Seen by Provider: 06/04/23 20:00 Source: patient, family Exam Limitations: no limitations Patient Subjective Stated Complaint: pt states "I was sitting on the couch watching tv and my heart rate jumped up to the 180s on my apple watch." Triage Nursing Assessment: pt ambulatory to bed by self with family at bedside, pt alert and oriented x3, skin pwd, pt c/o chest pain with tachycardia and palpitations, pt states she has had this happen before and it was d/t low potassium, heart sounds bounding, HR high 170s to low 180s Physician History: This is a 32-year-old white female 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 Patient was maintaining her systolic blood pressure in the normal range. She denied chest pain. She denies shortness of breath. Patient states she had a similar episode in March 2022 and was found to have a low potassium at that time. Patient is not on any cardiac medications. Patient does not have a cyber security. Patient was watching TV and was not active when this occurred. Patient was told she had a low thyroid level approximately 1 week ago. Timing/Duration: today Activities at Onset: none (Watching TV and sitting) Severity of Pain-Max: none Severity of Pain-Current: none Nitro Today/Relief: no nitro taken today Aspirin Treatment Today: no aspirin today Associated Symptoms: denies symptoms Prior Chest Pain/Cardiac Workup: no prior chest pain Allergies/Adverse Reactions: pineapple Allergy (Severe, Verified 06/04/23 19:19) latex Allergy (Intermediate, Verified 06/04/23 19:19) Home Medications: Clomipramine HCl 200 mg PO HS 01/17/22 [History] Hx Tetanus, Diphtheria Vaccination/Date Given: Yes Hx Influenza Vaccination/Date Given: Yes Hx Pneumococcal Vaccination/Date Given: No Travel Risk - International Travel Have you traveled outside of the country in past 3 weeks: No - Coronavirus Screening Are you exhibiting any of the following symptoms?: No Close contact with a COVID-19 positive Pt in past 14-21 Days: No - Vaccine Status Have you recieved a Covid-19 vaccination: Yes 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 - Review of Systems Constitutional: No Symptoms Eyes: No Symptoms Ears, Nose, & Throat: No Symptoms Respiratory: No Symptoms Cardiac: Palpitations Abdominal/Gastrointestinal: No Symptoms Genitourinary Symptoms: No Symptoms Musculoskeletal: No Symptoms Skin: No Symptoms Neurological: No Symptoms Psychological: No Symptoms Endocrine: No Symptoms Hematologic/Lymphatic: No Symptoms Immunological/Allergic: No Symptoms All Other Systems: Reviewed and Negative - Past Medical History Pertinent Past Medical History: Yes Neurological History: No Pertinent History ENT History: No Pertinent History Cardiac History: No Pertinent History Respiratory History: Asthma Endocrine Medical History: No Pertinent History Musculoskeletal History: No Pertinent History GI Medical History: No Pertinent History History: No Pertinent History Psycho-Social History: Depression Female Reproductive Disorders: No Pertinent History Other Medical History: OCD, anemia - Past Surgical History Past Surgical History: Yes Neuro Surgical History: No Pertinent History Cardiac: No Pertinent History Respiratory: No Pertinent History Gastrointestinal: Appendectomy Genitourinary: No Pertinent History Musculoskeletal: No Pertinent History Female Surgical History: Section Other Surgical History: back - Social History Smoking Status: Former smoker How long have you smoked: 10 years Exposure to second hand smoke: Yes Drug Use: none Patient Lives Alone: No - Female History Hx Last Menstrual Period: 06/04/23 Hx Now: No - Nursing Vital Signs Nursing Vital Signs: Initial Vital Signs Temperature 98.2 F 06/04/23 19:18 Pulse Rate 180 H 06/04/23 19:18 Respiratory Rate 16 06/04/23 19:18 Blood Pressure 125/98 06/04/23 19:18 O2 Sat by Pulse Oximetry 98 06/04/23 19:18 Pain Scale Pain Intensity 3 - Physical Exam General Appearance: no apparent distress, alert, anxiety, obese Eye Exam: PERRL/EOMI, eyes nml inspection Ears, Nose, Throat Exam: normal ENT inspection, moist mucous membranes Neck Exam: normal inspection, non-tender, supple, full range of motion Respiratory Exam: normal breath sounds, lungs clear, airway intact, No chest tenderness, No respiratory distress Cardiovascular Exam: tachycardia Gastrointestinal/Abdomen Exam: soft, normal bowel sounds, No tenderness Pelvic Exam: not done Rectal Exam: not done Back Exam: normal inspection, normal range of motion, No CVA tenderness, No vertebral tenderness Extremity Exam: normal inspection, normal range of motion, pelvis stable Neurologic Exam: alert, oriented x 3, cooperative, 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 as tested, nml cerebellar function, nml station & gait, sensation nml Skin Exam: normal color, warm, dry SpO2 Interpretation: normal SpO2: 98 O2 Delivery: Room Air - Course Nursing assessment & vital signs reviewed: Yes EKG Interpreted by Me: RATE ([id number]), Sinus Tach, NORMAL AXIS, NORMAL INTERVALS, NORMAL QRS, NORMAL ST-T, Other Ordered Tests: Active Orders 24 hr Category Date Time Status EKG-ER Only STAT Care 06/04/23 19:27 Active IV Insertion STAT Care 06/04/23 19:27 Active CBC W DIFF Stat Lab 06/04/23 19:50 Completed CMP Stat Lab 06/04/23 19:50 Completed MAGNESIUM Stat Lab 06/04/23 19:50 Completed PROTIME WITH INR Stat Lab 06/04/23 19:50 Completed PTT Stat Lab 06/04/23 19:50 Completed TROPONIN Q4H Lab 06/04/23 19:50 Completed TROPONIN Q4H Lab 06/04/23 23:30 Ordered TROPONIN Q4H Lab 06/05/23 03:30 Ordered TSH [TSH, 3RD Generation] Stat Lab 06/04/23 20:15 Completed Holter Monitor ONCE RT 06/04/23 22:04 Active Medication Summary Discontinued Medications Generic Name Dose Route Start Last Admin Trade Name Freq PRN Reason Stop Dose Admin Adenosine 6 mg 06/04/23 19:28 06/04/23 19:31 Adenosine 6 Mg/2 Ml Vial IV 06/04/23 19:29 6 mg STAT ONE Administration Adenosine Confirm 06/04/23 19:28 Adenosine 6 Mg/2 Ml Vial Administered 06/04/23 19:29 Dose 6 mg IV .STK-MED ONE Sodium Chloride 1,000 mls @ 999 mls/hr 06/04/23 19:28 06/04/23 20:44 Sodium Chloride 0.9% 1000 Ml IV 06/04/23 20:28 Infused .Q1H1M STA Infusion Sodium Chloride Confirm 06/04/23 19:28 Sodium Chloride 0.9% 1000 Ml Administered 06/04/23 19:29 Dose 1,000 mls @ ud .ROUTE .STK-MED ONE Metoprolol Tartrate 5 mg 06/04/23 20:38 06/04/23 21:23 Metoprolol Tartrate 5 Mg/5 Ml Vial IV 06/04/23 20:39 Not Given STAT ONE Metoprolol Tartrate 2.5 mg 06/04/23 21:22 06/04/23 21:27 Metoprolol Tartrate 5 Mg/5 Ml Vial IV 06/04/23 21:23 2.5 mg STAT ONE Administration Metoprolol Tartrate Confirm 06/04/23 21:23 Metoprolol Tartrate 5 Mg/5 Ml Vial Administered 06/04/23 21:24 Dose 5 mg IV .STK-MED ONE Metoprolol Tartrate 2.5 mg 06/04/23 21:47 06/04/23 21:52 Metoprolol Tartrate 5 Mg/5 Ml Vial IV 06/04/23 21:48 2.5 mg STAT ONE Administration Lab/Rad Data: Laboratory Result Diagrams 06/04/23 19:50 06/04/23 19:50 Laboratory Results 06/04/23 06/04/23 06/04/23 Range/Units 20:15 20:15 19:50 WBC (4.0-10.5) x10^3/uL RBC (4.1-5.4) x10^6/uL Hgb (12.0-16.0) g/dL Hct (35-47) % MCV (78-100) fL MCH (26-32) pg MCHC (32-36) g/dL RDW (11.5-14.0) % Plt Count (150-450) x10^3/uL MPV (7.5-11.0) fL Gran % (36.0-66.0) % Immature Gran % (Auto) (0.00-0.4) % Nucleat RBC Rel Count (0.00-0.1) % Eos # (Auto) (0-0.5) x10^3/uL Immature Gran # (Auto) (0.00-0.03) x10^3u/L Absolute Lymphs (auto) (1.0-4.6) x10^3/uL Absolute Monos (auto) (0.0-1.3) x10^3/uL Absolute Nucleated RBC (0.00-0.01) x10^3u/L Lymphocytes % (24.0-44.0) % Monocytes % (0.0-12.0) % Eosinophils % (0.00-5.0) % Basophils % (0.0-0.4) % Absolute Granulocytes (1.4-6.9) x10^3/uL Basophils # (0-0.4) x10^3/uL PT (9.4-12.5) SECONDS INR (0.8-3.0) APTT (25.1-36.5) SECONDS Sodium (137-145) mmol/L Potassium (3.5-5.1) mmol/L Chloride (98-107) mmol/L Carbon Dioxide (22-30) mmol/L Anion Gap (5-15) MEQ/L BUN (7-17) mg/dL Creatinine (0.52-1.04) mg/dL Estimated GFR ML/MIN Glucose (74-106) mg/dL Calcium (8.4-10.2) mg/dL Magnesium (1.6-2.3) mg/dL Total Bilirubin (0.2-1.3) mg/dL AST (14-36) U/L ALT (0-35) U/L Alkaline Phosphatase (38-126) U/L Troponin I < 0.012 (0.000-0.034) ng/mL Serum Total Protein (6.3-8.2) g/dL Albumin (3.5-5.0) g/dL Free T4 0.95 (0.78-2.19) ng/dL TSH 3rd Generation 1.000 (0.47-4.68) mIU/L 06/04/23 06/04/23 06/04/23 Range/Units 19:50 19:50 19:50 WBC 8.0 (4.0-10.5) x10^3/uL RBC 5.00 (4.1-5.4) x10^6/uL Hgb 14.1 (12.0-16.0) g/dL Hct 43.3 (35-47) % MCV 86.6 (78-100) fL MCH 28.2 (26-32) pg MCHC 32.6 (32-36) g/dL RDW 14.3 H (11.5-14.0) % Plt Count 440 (150-450) x10^3/uL MPV 9.4 (7.5-11.0) fL Gran % 63.8 (36.0-66.0) % Immature Gran % (Auto) 0.3 (0.00-0.4) % Nucleat RBC Rel Count 0.0 (0.00-0.1) % Eos # (Auto) 0.21 (0-0.5) x10^3/uL Immature Gran # (Auto) 0.02 (0.00-0.03) x10^3u/L Absolute Lymphs (auto) 1.96 (1.0-4.6) x10^3/uL Absolute Monos (auto) 0.62 (0.0-1.3) x10^3/uL Absolute Nucleated RBC 0.00 (0.00-0.01) x10^3u/L Lymphocytes % 24.5 (24.0-44.0) % Monocytes % 7.8 (0.0-12.0) % Eosinophils % 2.6 (0.00-5.0) % Basophils % 1.0 (0.0-0.4) % Absolute Granulocytes 5.10 (1.4-6.9) x10^3/uL Basophils # 0.08 (0-0.4) x10^3/uL PT 10.6 (9.4-12.5) SECONDS INR 0.97 (0.8-3.0) APTT 31.0 (25.1-36.5) SECONDS Sodium 139 (137-145) mmol/L Potassium 3.5 (3.5-5.1) mmol/L Chloride 106 (98-107) mmol/L Carbon Dioxide 23 (22-30) mmol/L Anion Gap 12.3 (5-15) MEQ/L BUN 7 (7-17) mg/dL Creatinine 0.76 (0.52-1.04) mg/dL Estimated GFR 106.7 ML/MIN Glucose 97 (74-106) mg/dL Calcium 9.7 (8.4-10.2) mg/dL Magnesium 2.2 (1.6-2.3) mg/dL Total Bilirubin 0.30 (0.2-1.3) mg/dL AST 25 (14-36) U/L ALT 15 (0-35) U/L Alkaline Phosphatase 96 (38-126) U/L Troponin I (0.000-0.034) ng/mL Serum Total Protein 8.1 (6.3-8.2) g/dL Albumin 4.9 (3.5-5.0) g/dL Free T4 (0.78-2.19) ng/dL TSH 3rd Generation (0.47-4.68) mIU/L - Progress Progress: improved, re-examined Air Movement: good Progress Note: 06/04/23 20:34 This patient's medical issue is 1 of at least moderate complexity and possible high complexity. The patient arrived to the emergency department prior to my evaluation of her. However her condition necessitated Dr. Burns to intervene with 6 mg of adenosine which decreased her heart rate from 176 down to 135 and 116 bpm in a sinus tachycardia rhythm at the time I was able to evaluate her. Once she was stabilized, and I arrived to the emergency department, I then obtained a full history and physical exam on her. The second twelve-lead EKG, after 6 mg intravenous adenosine showed a sinus tachycardia 135 bpm. No acute ischemic changes present. Patient has normal axis deviation. The patient's medical workup is based on the review of the patient's past medical history, review of the patient's medication list, review of patient drug allergy list, history of present illness and physical findings on examination. The workup in this patient includes rapid placement of intravenous line and infusion of 6 mg intravenous adenosine, twelve-lead EKG, CBC, CMP, troponin level, magnesium level, free T4 and TSH levels. I will also provide the patient with 5 mg of Lopressor at this time. 06/04/23 21:59 I interpreted the patient's laboratory data results. There is no evidence of any acute, emergent medical issue based on her laboratory data results. This patient does not want to be placed in the hospital setting either here or at [facility] or any other facility. She has no chest pain. She has no shortness of breath. She is now normal sinus rhythm and her systolic blood pressure is within normal limits. We will place her on a Holter monitor for 48 hours. Patient is instructed to follow-up with her primary care provider and to make arrangements with her primary care provider to obtain a referral to a cyber security. 06/04/23 22:15 Repeat twelve-lead EKG was interpreted by me. Heart rate 96 bpm. Normal sinus rhythm. Normal axis deviation. Normal QRS, normal intervals. No evidence of acute ischemic changes on today's final twelve-lead EKG. Blood Culture(s) Obtained: No Antibiotics given: No Counseled pt/family regarding: lab results, diagnosis, need for follow-up Medical Desision Making - Independent Historian Additional History obtained from: Spouse - Diagnostic Testing Diagnostic test were ordered, analyzed, and reviewed by me: Yes - Risk of complications Low Risk: Low risk of morbidity from additional dx testing or treatment - Departure Departure Disposition: Home Clinical Impression: Sinus tachycardia Condition: Stable Critical Care Time: Yes Critical Care Time(excluding separately billable procedures): Critical 30-74 mins (45 minutes) Referrals: LENORA JETT NP [Primary Care Provider] - Follow up/PCP as directed Additional Instructions: Drink plenty fluids. Take all your medication as prescribed. Wear your Holter monitor as you were instructed and follows instructions for care and return to the hospital. Call your primary care provider on 06/07/2023, to make arranges for follow-up appointment and for referral to cyber security.
[2023-06-04] MEDS ORDERED: LOPRESSOR INJECTION IV ONE (21:23)
[2023-06-04] MEDS: LOPRESSOR INJECTION IV ONE ×3 (21:23→21:52)
[2023-06-04 22:05] VITALS: O2SAT 98
[2023-06-04 22:20] VITALS: BP 99/86; PULSE 95; RESP 12
== END 2023-06-04 22:33 | disposition home or self-care (01) ==
LOC: ED 19:17
DX: R00.0 Tachycardia, unspecified (principal); Z79.899 Other long term (current) drug therapy
CPT/HCPCS: 36415; 80053; 83735; 84439; 84443; 84484; 85025; 85610; 85730; 93005; 93225; 96374; 96376; 99284; 99291; J0153

== ENCOUNTER 2025-01-01 09:36 | Emergency (ER) | payer BC ==
[2025-01-01 09:50] VITALS: TEMP 97.2
--- NOTE | 2025-01-01 10:37 | XRAY ---
Indication: Pneumonia. Comparison: October 08, 2022 Portable chest again demonstrates normal heart, lungs, and bony thorax.
[2025-01-01 10:51] LABS: Calcium 9.8 mg/dL (8.4-10.2); Carbon Dioxide 20.0 mmol/L (22-30); Creatinine 1 0.69 mg/dL (0.52-1.04); EST GLOMERULAR FILTRATION RATE 116.7 ML/MIN; Glucose 111.0 mg/dL (74-106); Potassium 3.4 mmol/L (3.5-5.1); SGOT/AST 26.0 U/L (14-36); SGPT/ALT 18.0 U/L (0-35); Total Protein 7.5 g/dL (6.3-8.2)
--- NOTE | 2025-01-01 10:55 | ERPHSYRPT ---
- History of Present Illness Time Seen by Provider: 01/01/25 09:43 Source: patient Exam Limitations: no limitations Patient Subjective Stated Complaint: pt is due to go to [facility] today at 1430 for iron infusion, states that her iron saturation is 4 and hemoglobin is 12.3, pt was cleaning out her car and got real dizzy and vomited, hasn't eaten anything since Wednesday, curtis hand tingling Triage Nursing Assessment: Pt brought to the ER by her friend, walked into the ER with an unstable gait, tachycardic, denies pain, lethargic, pulses normal, skin n/w/d, no difficulty breathing, denies chest pain, doesn't appear to be in any distress Physician History: Patient is here with weakness, dizziness episode. Patient states that she was cleaning out her car this morning after an overnight shift. States that she became dizzy and lightheaded and very nauseous. She sat down and although she slightly felt improved she continues to feel very nauseous. This was associated with bilateral hand numbness. She no actual chest pain, shortness of breath during the episode. Patient states that she does have known low iron. States that she is due for an infusion this afternoon at [facility]. No fever, chills, recent illnesses. Patient states that she has had decreased overall intake for the past 48 hours.She is otherwise in her normal state of health. Same number of urinations and defecations. The patient has no signs of altered mental status, nuchal rigidity, signs of meningitis. The patient is up-to-date on all vaccinations. Allergies/Adverse Reactions: pineapple Allergy (Severe, Verified 01/01/25 09:50) latex Allergy (Intermediate, Verified 01/01/25 09:50) Home Medications: Clomipramine HCl 200 mg PO HS 01/17/22 [History] Dextroamphetamine/Amphetamine [Adderall 10 mg Tablet] 30 mg PO DAILY 06/12/24 [History] lamoTRIgine [Lamictal] 200 mg PO DAILY 06/12/24 [History] Hx Tetanus, Diphtheria Vaccination/Date Given: Yes Hx Influenza Vaccination/Date Given: Yes Hx Pneumococcal Vaccination/Date Given: No Travel Risk - International Travel Have you traveled outside of the country in past 3 weeks: No - Emerging Infectious Disease Are you exhibiting symptoms associated with any current EIDs: No - Past Medical History Pertinent Past Medical History: Yes Neurological History: No Pertinent History ENT History: No Pertinent History Cardiac History: No Pertinent History Respiratory History: Asthma Endocrine Medical History: No Pertinent History Musculoskeletal History: No Pertinent History GI Medical History: No Pertinent History History: No Pertinent History Psycho-Social History: Depression Female Reproductive Disorders: No Pertinent History Other Medical History: OCD, anemia - Past Surgical History Past Surgical History: Yes Neuro Surgical History: No Pertinent History Cardiac: No Pertinent History Respiratory: No Pertinent History Gastrointestinal: Appendectomy Genitourinary: No Pertinent History Musculoskeletal: No Pertinent History Female Surgical History: Section Other Surgical History: back - Female History Hx Last Menstrual Period: 3 WEEKS Hx Now: No (tubal) - Social History Smoking Status: Current every day smoker How long have you smoked: vapes Exposure to second hand smoke: No Drug Use: none - Social Determinants of Health Will the patient participate in the screening: Yes Do you worry about a steady place to live?: No Do you have any problems with any of the following?: No known problems In the past 12 months,have you had to go without utilities?: No Transportation Issues: No Has anyone in your support network made you feel unsafe?: No Have you or anyone in your house had to go w/o enough food: No - Nursing Vital Signs Nursing Vital Signs: Initial Vital Signs Temperature 97.2 F 01/01/25 09:42 Pulse Rate 109 H 01/01/25 09:42 Respiratory Rate 16 01/01/25 09:42 Blood Pressure 131/83 01/01/25 09:42 O2 Sat by Pulse Oximetry 99 01/01/25 09:42 Pain Scale Pain Intensity 0 - Physical Exam SpO2: 99 Comments: 01/01/25 10:54 Review of Systems Constitutional: Negative for fever. HENT: Negative for congestion. Respiratory: Negative for shortness of breath. Cardiovascular: Negative for chest pain. Gastrointestinal: Negative for abdominal pain. Genitourinary: Negative for dysuria. Musculoskeletal: Negative for back pain. Skin: Negative for rash. Neurological: Negative for headaches. Dizziness, nausea, lightheadedness Psychiatric/Behavioral: Negative for behavioral problems. All other systems reviewed and are negative. Physical Exam Vitals signs and nursing note reviewed. Constitutional: Appearance: Patient is well-developed. HENT: Head: Normocephalic and atraumatic. Eyes: Conjunctiva/sclera: Conjunctivae normal. Neck: Musculoskeletal: Normal range of motion. Trachea: No tracheal deviation. Cardiovascular: Rate and Rhythm: Normal rate. Heart sounds normal. Pulmonary: Effort: Pulmonary effort is normal. No respiratory distress. Abdominal: Palpations: Abdomen is soft. Musculoskeletal: General: No deformity. Skin: General: Skin is warm and dry. Neurological/ Psychiatric: Mental Status: Mental status, behavior, interaction with environment is appropriate for patient's age and condition Motor: Patient lifts arms against gravity. Muscle strength and tone are normal Reflexes: Intact major reflexes Sensory: Light touch sensation intact throughout upper and lower extremities Coordination: Rapid alternating movements are intact. Normal [id number] Gait/Stance: Posture is normal, patient is sitting up in bed with normal strength - Course Nursing assessment & vital signs reviewed: Yes EKG Interpreted by Me: Sinus Rhythm Ordered Tests: Active Orders 24 hr Category Date Time Status EKG-ER Only STAT Care 01/01/25 10:07 Completed IV Insertion STAT Care 01/01/25 10:07 Completed CHEST 1 VIEW (PORTABLE) Stat Exams 01/01/25 10:08 Completed CBC W DIFF Stat Lab 01/01/25 10:35 Completed CMP Stat Lab 01/01/25 10:35 Completed CULTURE,URINE Stat Lab 01/01/25 10:48 Received HCG QUALITATIVE, URINE Stat Lab 01/01/25 11:09 Completed LIPASE Stat Lab 01/01/25 10:35 Completed UA W/RFX UR CULTURE Stat Lab 01/01/25 10:48 Completed Medication Summary Discontinued Medications Generic Name Dose Route Start Last Admin Trade Name Freq PRN Reason Stop Dose Admin Sodium Chloride 1,000 mls @ 999 mls/hr 01/01/25 10:07 01/01/25 12:45 Sodium Chloride 0.9% 1000 Ml IV 01/01/25 11:07 Infused .Q1H1M STA Infusion Sodium Chloride Confirm 01/01/25 11:36 Sodium Chloride 0.9% 1000 Ml Administered 01/01/25 11:37 Dose 1,000 mls @ ud .ROUTE .STK-MED ONE Ondansetron HCl 8 mg 01/01/25 10:07 01/01/25 11:37 Ondansetron Hcl 4 Mg/2 Ml Vial IV 01/01/25 10:08 8 mg STAT ONE Administration Ondansetron HCl Confirm 01/01/25 11:36 Ondansetron Hcl 4 Mg/2 Ml Vial Administered 01/01/25 11:37 Dose 8 mg .ROUTE .K-MED ONE Lab/Rad Data: Laboratory Result Diagrams 01/01/25 10:35 01/01/25 10:35 Laboratory Results 01/01/25 01/01/25 01/01/25 Range/Units 11:09 10:48 10:35 WBC (3.98-10.04) x10^3/uL RBC (3.93-5.22) x10^6/uL Hgb (11.2-15.7) g/dL Hct (34.1-44.9) % MCV (79.4-94.8) fL MCH (25.6-32.2) pg MCHC (32.2-35.5) g/dL RDW (11.7-14.4) % Plt Count (182-369) x10^3/uL MPV (9.4-12.3) fL Gran % (34.0-71.1) % Immature Gran % (Auto) (0.001-0.429) % Nucleat RBC Rel Count (0.00-0.2) % Eos # (Auto) (0.04-0.36) x10^3/uL Immature Gran # (Auto) (0.001-0.031) x10^3u/L Absolute Lymphs (auto) (1.18-3.74) x10^3/uL Absolute Monos (auto) (0.24-0.86) x10^3/uL Absolute Nucleated RBC (0.00-0.012) x10^3u/L Lymphocytes % (19.3-51.7) % Monocytes % (4.7-12.5) % Eosinophils % (0.7-5.8) % Basophils % (0.1-1.2) % Absolute Granulocytes (1.56-6.13) x10^3/uL Basophils # (0.01-0.08) x10^3/uL Sodium 138 (135-145) mmol/L Potassium 3.4 L (3.5-5.1) mmol/L Chloride 105 (98-107) mmol/L Carbon Dioxide 20 L (22-30) mmol/L Anion Gap 16.1 H (5-15) MEQ/L BUN 6 L (7-17) mg/dL Creatinine 0.69 (0.52-1.04) mg/dL Estimated GFR 116.7 ML/MIN Glucose 111 H (74-106) mg/dL Calcium 9.8 (8.4-10.2) mg/dL Total Bilirubin 0.40 (0.2-1.3) mg/dL AST 26 (14-36) U/L ALT 18 (0-35) U/L Alkaline Phosphatase 71 (38-126) U/L Serum Total Protein 7.5 (6.3-8.2) g/dL Albumin 4.7 (3.5-5.0) g/dL Lipase 91 (23-300) U/L Urine Color Yellow (Yellow) Urine Appearance Clear (Clear) Urine pH 8.5 A (4.6-8.0) Ur Specific [place] 1.010 (1.005-1.030) Urine Protein Negative (Negative) Urine Glucose (UA) Negative (Negative) mg/dL Urine Ketones 15 A (Negative) Urine Blood Negative (Negative) Urine Nitrite Negative (Negative) Urine Bilirubin Negative (Negative) Urine Urobilinogen 0.2 (0.2) mg/dL Ur Leukocyte Esterase Large A (Negative) U Hyaline Cast (Auto) NONE SEEN (0-2) /LPF Urine Microscopic RBC 0-2 (0-5) /HPF Urine Microscopic WBC 21-50 A (0-5) /HPF Ur Epithelial Cells Rare (None Seen) /HPF Urine Bacteria Few A (None Seen) /HPF Urine Culture Reflexed YES (NO) Urine HCG, Qual NEGATIVE (NEGATIVE) 01/01/25 Range/Units 10:35 WBC 11.2 H (3.98-10.04) x10^3/uL RBC 4.47 (3.93-5.22) x10^6/uL Hgb 11.4 (11.2-15.7) g/dL Hct 36.6 (34.1-44.9) % MCV 81.9 (79.4-94.8) fL MCH 25.5 L (25.6-32.2) pg MCHC 31.1 L (32.2-35.5) g/dL RDW 15.9 H (11.7-14.4) % Plt Count 470 H (182-369) x10^3/uL MPV 9.1 L (9.4-12.3) fL Gran % 79.8 H (34.0-71.1) % Immature Gran % (Auto) 0.4 (0.001-0.429) % Nucleat RBC Rel Count 0.0 (0.00-0.2) % Eos # (Auto) 0 L (0.04-0.36) x10^3/uL Immature Gran # (Auto) 0.04 H (0.001-0.031) x10^3u/L Absolute Lymphs (auto) 1.38 (1.18-3.74) x10^3/uL Absolute Monos (auto) 0.79 (0.24-0.86) x10^3/uL Absolute Nucleated RBC 0.00 (0.00-0.012) x10^3u/L Lymphocytes % 12.3 L (19.3-51.7) % Monocytes % 7.1 (4.7-12.5) % Eosinophils % 0.0 L (0.7-5.8) % Basophils % 0.4 (0.1-1.2) % Absolute Granulocytes 8.93 H (1.56-6.13) x10^3/uL Basophils # 0.04 (0.01-0.08) x10^3/uL Sodium (135-145) mmol/L Potassium (3.5-5.1) mmol/L Chloride (98-107) mmol/L Carbon Dioxide (22-30) mmol/L Anion Gap (5-15) MEQ/L BUN (7-17) mg/dL Creatinine (0.52-1.04) mg/dL Estimated GFR ML/MIN Glucose (74-106) mg/dL Calcium (8.4-10.2) mg/dL Total Bilirubin (0.2-1.3) mg/dL AST (14-36) U/L ALT (0-35) U/L Alkaline Phosphatase (38-126) U/L Serum Total Protein (6.3-8.2) g/dL Albumin (3.5-5.0) g/dL Lipase (23-300) U/L Urine Color (Yellow) Urine Appearance (Clear) Urine pH (4.6-8.0) Ur Specific [place] (1.005-1.030) Urine Protein (Negative) Urine Glucose (UA) (Negative) mg/dL Urine Ketones (Negative) Urine Blood (Negative) Urine Nitrite (Negative) Urine Bilirubin (Negative) Urine Urobilinogen (0.2) mg/dL Ur Leukocyte Esterase (Negative) U Hyaline Cast (Auto) (0-2) /LPF Urine Microscopic RBC (0-5) /HPF Urine Microscopic WBC (0-5) /HPF Ur Epithelial Cells (None Seen) /HPF Urine Bacteria (None Seen) /HPF Urine Culture Reflexed (NO) Urine HCG, Qual (NEGATIVE) - Progress Progress: improved Progress Note: 01/01/25 10:55 Differential diagnosis includes: PNA, STEMI, NSTEMI, other infection, musculoskeletal pain, pneumothorax - We'll obtain basic labs, fluids, EKG, troponin, chest x-ray - EKG shows no ST changes - my read - O2 saturations consistently greater than 95%. - CXR shows no pneumonia, pneumothorax - my read 01/01/25 12:14 Patient feeling improved overall with fluids and nausea medication. Patient does appear to need an iron transfusion. Patient is not however, she does appear that she may have a UTI. Will treat her with antibiotics out of an abundance of caution given her weakness and overall symptoms. She has no early signs of a pyelonephritis. Therefore,Will treat her with Macrobid. She states that she has been on this treatment before. States that she does feel well overall with this. Plan for discharge home so she can have her iron infusion this afternoon. Counseled pt/family regarding: lab results, diagnosis, need for follow-up, rad results - Departure Departure Disposition: Home Clinical Impression: UTI (urinary tract infection), Dehydration Condition: Stable Critical Care Time: No Referrals: LENORA JETT NP [Primary Care Provider, [facility]] - Follow up/PCP as directed Instructions: Muscle Weakness Prescriptions: Nitrofurantoin Macro 100 mg [Macrobid 100MG Capsule] 100 mg PO BID 5 Days #10 cap
[2025-01-01 11:01] LABS: BASOPHIL % 0.4 % (0.1-1.2); Basophil (Absolute #) 0.04 x10^3/uL (0.01-0.08); Eosinophil (Absolute #) 0 x10^3/uL (0.04-0.36); Hematocrit 36.6 % (34.1-44.9); Hemoglobin 11.4 g/dL (11.2-15.7); IMMATURE GRAN # 0.04 x10^3u/L (0.001-0.031); IMMATURE GRAN % 0.4 % (0.001-0.429); Lymphocyte (Absolute #) 1.38 x10^3/uL (1.18-3.74); Mean Corpuscular Hemoglobin 25.5 pg (25.6-32.2); Mean Corpuscular Hgb Concent. 31.1 g/dL (32.2-35.5); Monocyte (Absolute #) 0.79 x10^3/uL (0.24-0.86); NUCLEATED RBC # 0.00 x10^3u/L (0.00-0.012); NUCLEATED RBC % 0.0 % (0.00-0.2); Platelet Count 470 x10^3/uL (182-369); Red Blood Count 4.47 x10^6/uL (3.93-5.22); White Blood Count 11.2 x10^3/uL (3.98-10.04)
[2025-01-01 11:15] LABS: HCG URINE TEST NEGATIVE (NEGATIVE)
[2025-01-01] MEDS ORDERED: Zofran 4 MG/2 ML VIAL ONE (11:36)
[2025-01-01] MEDS: Zofran 4 MG/2 ML VIAL IV ONE (11:37)
[2025-01-01 11:41] LABS: Glucose, Urine Negative (Negative); Protein,Urine Dip Negative (Negative); WBC 21-50 /HPF (0-5)
[2025-01-01 11:42] LABS: RBC 0-2 /HPF (0-5)
[2025-01-01 12:09] VITALS: BP 125/81; PULSE 108; RESP 15
[2025-01-01 13:20] VITALS: O2SAT 99
== END 2025-01-01 12:51 | disposition home or self-care (01) ==
LOC: ED 09:36
DX: N39.0 Urinary tract infection, site not specified (principal); E86.0 Dehydration; R53.1 Weakness; R42 Dizziness and giddiness; R11.0 Nausea; Z79.899 Other long term (current) drug therapy; Z72.0 Tobacco use